=== PATIENT | male | born 1950 | race Caucasian/White ===

== ENCOUNTER 2023-08-23 19:39 | Inpatient (IN) ==
[2023-08-23] MEDS ORDERED: [UNRECOGNIZED DRUG - OTHER] IM ONE (21:39)
[2023-08-23] MEDS ORDERED: ACETAMINOPHEN 325 MG TAB PO PRN (22:08)
[2023-08-23] MEDS ORDERED: ONDANSETRON INJ 2 MG/ML 2 ML VIAL IV PRN (22:08)
[2023-08-23] MEDS ORDERED: PIPERACILLIN/TAZOBACTAM 4.5 GM in DEXTROSE 5% MINI-B 100 ML IV ONE (22:30)
[2023-08-23] MEDS ORDERED: ALBUTEROL HFA 8 GM INHALER INH PRN (22:40)
[2023-08-23] MEDS ORDERED: oxyCODONE/ACETAMINOPHEN 10-325 TAB PO PRN (22:40)
--- NOTE | 2023-08-23 22:49 | History & Physical Report ---
Date of Service August 23, 2023 Assessment & Plan (1) Enteritis: Plan: Sepsis secondary to enteritis Patient presents from [facility] with complaints of nausea and vomiting diarrhea CT scan of the abdomen and pelvis showed evidence of enteritis or ileus Initial serum lactate was 3 however after some IV fluid it went down to 2 We will obtain stool cultures Empirically continue IV Zosyn. Patient already received 1 dose of vancomycin at lower given Repeat lactate (2) Ileus: Plan: CT also showed evidence of suspected ileus Currently patient he had a bowel movement in the morning, but has not passed gas since then On examination abdomen was tympanitic and mildly tender We will keep him n.p.o. IV normal saline 100 cc/h (3) Diabetes mellitus, type 2: Plan: Blood glucose under fair control At home on metformin and insulin glargine Continue glargine Add insulin sliding scale, hold metformin (4) CAD (coronary artery disease): Plan: History of CAD, currently patient was supposed to get a stent soon Continue metoprolol statin Plavix and aspirin Plan Monitor on telemetry Full code DVT prophylaxis SCDs Admission and Anticipated Discharge Date Admission Date: August 23, 2023 History of Present Illness Primary Care Provider: Verna Vallejo PA-C Is a 73-year-old male with a history of CAD, type 2 diabetes who was a transfer from [facility] department. According to the patient presented to [facility] on account of nausea and vomiting and diarrhea which have been going on for a few days. In location, CBC showed a WBC of 20,000, serum lactate of 3 and he was tachycardic heart rate in the 120s blood pressure was 130/80. A CT scan of the abdomen pelvis was done which showed evidence of a fluid-filled nondilated loops suspicious for enteritis or ileus. When I saw the patient here he said he has been feeling weak and also complained of diffuse chest pain nonradiating. However he denies shortness of breath Troponin and EKG been ordered and blood cultures already obtained location, will obtain a repeat here. Continue IV Zosyn which was started at [facility]. He already received a dose of Vanco in [facility] as well Allergies Allergy/AdvReac Type Severity Reaction Status Date / Time No Known Allergies Allergy Verified 08/13/23 13:12 Home Medications Medication Instructions Recorded Confirmed Type alogliptin 25 mg tablet 25 mg PO QAM 04/30/20 08/13/23 History lisinopril 10 mg tablet 10 mg PO QAM 04/30/20 08/13/23 History lovastatin 40 mg tablet 40 mg PO QAM 04/30/20 08/13/23 History metformin 500 mg tablet 500 mg PO BID 04/30/20 08/13/23 History metoprolol tartrate 25 mg tablet 12.5 mg PO BID 04/30/20 08/13/23 History omeprazole 20 mg capsule,delayed 20 mg PO QAM 04/30/20 08/13/23 History release ondansetron 4 mg disintegrating 4 mg PO Q8H PRN Nausea 04/30/20 08/13/23 History tablet polyethylene glycol 3350 17 17 gm PO DAILY PRN Constipation 04/30/20 08/13/23 History gram/dose oral powder tamsulosin 0.4 mg capsule 0.4 mg PO QAM 04/30/20 08/13/23 History albuterol sulfate 90 mcg/actuation 1 inh inhalation QID PRN sob 05/29/20 08/13/23 History aerosol inhaler (Ventolin HFA) insulin glargine 100 unit/mL 30 unit subcut QAM 05/29/20 08/13/23 History subcutaneous solution (Lantus U-100 Insulin) oxycodone-acetaminophen 10 mg-325 1 tab PO Q6H PRN Pain 05/29/20 08/13/23 History mg tablet peg 3350-electrolytes 236 240 ml PO Q10M #4,000 mL 05/30/20 08/13/23 Rx gram-22.74 gram-6.74 gram-5.86 gram solution (Golytely) aspirin 81 mg tablet,delayed 81 mg PO DAILY 08/13/23 08/13/23 History release clopidogrel 75 mg tablet 75 mg PO DAILY 08/13/23 08/13/23 History Past Med/Surg History Medical History Aortic aneurysm [facility] (08/16/23): Dilated aortic root (4.1 cm) and ascending aorta (4.3 cm) BPH (benign prostatic hyperplasia) Carotid artery stenosis Neck CTA 08/05/23: Extensive atherosclerotic disease resulting in 90% right coronal and carotid artery stenosis and 80% left common carotid artery stenosis. Chronic obstructive pulmonary disease Diabetes mellitus, type 2 Gastroparesis GERD (gastroesophageal reflux disease) Hyperlipidemia Hypertension Surgical History Hx of cholecystectomy Hx of colonoscopy Hx of esophagogastroduodenoscopy Hx of tonsillectomy Family History Mother Diabetes Sister Diabetes Social History Smoking Status: Former smoker Second Hand Exposure: No; Do You Dip or Chew Tobacco: No; Hx Alcohol Use: No Hx Substance Use: No Preferred Language: Belarusian Communication Ability: Effective Bankruptcy Assistant Required: No Beliefs That Will Affect Care: None Current Living Situation: Spouse Other Information That Helps Us Care for You: No Feels Safe at Home: Yes Safety Concerns: Feels Safe At This Time Assistive Devices: Cane, Glasses and Walker Review of Systems Review of Systems: All systems reviewed are negative, apart from the ones contained in the history. Physical Exam Physical Exam: The patient is awake, alert and oriented 3, well developed and well nourished, normocephalic and atraumatic, lying in bed and in no acute distress. HEENT--PERRL, EOMI, mucous membranes and oropharynx mildly dry Neck--supple. No JVD. No bruits. Thyroid normal, trachea midline, no adenopathy. Heart--normal S1 and S2. No murmurs, rubs or gallops. Lungs--clear bilaterally, no respiratory distress, no accessory muscle use. Abdomen--normal bowel sounds and soft. Mild epigastric and left sided abdominal pain Extremities--no cyanosis or clubbing. No edema. Dermatologic--normal skin turgor, normal color, no abnormal lymph nodes, no rash. Neurologic--cranial nerves II through XII grossly intact. Rheumatologic--normal range of motion. Psychiatric--normal affect. Results & Data Results & Data Vital Signs (Past 12 Hours) Vital Signs Temp Pulse Resp BP Pulse Ox O2 Del Method 08/23/23 21:31 98.2 F 121 H 18 126/76 95 Room Air PG Care Time/CCT Total # of Minutes Spent Total Time Spent with Patient: Total time spent is greater than 50% in coordination of care (as documented) at patient's floor/unit and/or counseling patient: Coding Level of Care Code 60693 INT INP/OBS CARE MIN Diagnoses Enteritis K52.9 Ileus K56.7 Diabetes mellitus, type 2 E11.9 CAD (coronary artery disease) I25.10
[2023-08-23] MEDS ORDERED: GLUCAGON FOR INJ 1 MG VIAL IM PRN (23:00)
[2023-08-23] MEDS ORDERED: GLUCOSE 40% GEL 15 GM TUBE PO PRN (23:00)
[2023-08-23] MEDS ORDERED: GLUCOSE 10 TAB/TUBE PO PRN (23:00)
[2023-08-23] MEDS ORDERED: DEXTROSE 50% 50 ML SYRINGE IV PRN (23:00)
[2023-08-23] MEDS ORDERED: CARBOHYDRATES FOR HYPOGLYCEMIA PO PRN (23:00)
[2023-08-23 23:51] LABS: BUN Creatinine Ratio 20.2 (10-20); Calcium 8.2 mg/dl (8.6-10.3); Creatinine Clr Calc Pharmacy 72.6 ml/min; Est GFR (African American) 97.6 ml/min; Est GFR (Non-African American) 84.2 ml/min; Potassium 4.6 mmol/L (3.5-5.1)
[2023-08-23 23:53] LABS: Hematocrit (blood only) 44.8 % (42.0-52.0); Hemoglobin 15.3 g/dl (14.0-18.0); Mean Corpuscular Hemoglobin 31.7 pg (25.0-34.0); Mean Corpuscular Hgb Conc 34.2 g/dL (32.0-36.0); Mean Corpuscular Volume 92.8 fL (80.0-100.0); Mean Platelet Volume 9.4 fL (9.4-12.4); Platelet Count 227 K/uL (130-400); RDW Coefficient of Variation 13.3 % (11.5-14.5); RDW Standard Deviation 45.1 fL (36.4-46.3); Red Blood Count 4.83 M/uL (4.70-6.10); White Blood Count 16.16 K/ul (4.8-10.8)
[2023-08-24 00:10] LABS: Troponin I High Sensitivity 1407.6 pg/ml (0-20)
[2023-08-24] MEDS ORDERED: Heparin IV Adult Wt-Based Standard WITH Bolus Protocol IV STA (00:30)
[2023-08-24] MEDS ORDERED: HEPARIN SOD (PORCINE) 1000 UNIT/ML IV ONE (01:00)
[2023-08-24] MEDS: HEPARIN SODIUM/DEXTROSE 25,000 UNITS/500 ML BAG IV SCH (01:13)
[2023-08-24 02:41] LABS: Partial Thromboplastin Ratio > 4.9
[2023-08-24 02:50] LABS: Partial Thromboplastin Time > 139.0 Seconds (21.0-31.0)
[2023-08-24] MEDS: SODIUM CHLORIDE 0.9% 1,000 ML IV SCH ×3 (03:52→19:09)
[2023-08-24 05:08] LABS: Basophils # (auto) 0.02 K/uL (0.00-0.20); Basophils % (auto) 0.2 %; Eosinophils # (auto) 0.04 K/uL (0.00-0.50); Eosinophils % (auto) 0.3 %; Hematocrit (blood only) 43.7 % (42.0-52.0); Hemoglobin 14.9 g/dl (14.0-18.0); Immature Granulocytes # (auto) 0.04 K/uL (0.01-0.20); Immature Granulocytes % (auto) 0.3 %; Lymphocytes # (auto) 2.29 K/uL (1.20-3.40); Lymphocytes % (auto) 18.2 %; Mean Corpuscular Hemoglobin 31.8 pg (25.0-34.0); Mean Corpuscular Hgb Conc 34.1 g/dL (32.0-36.0); Mean Corpuscular Volume 93.2 fL (80.0-100.0); Mean Platelet Volume 9.5 fL (9.4-12.4); Monocytes # (auto) 1.15 K/uL (0.11-0.59); Monocytes % (auto) 9.1 %; Neutrophils # (auto) 9.03 K/uL (1.40-6.50); Neutrophils % (auto) 71.9 %; Platelet Count 219 K/uL (130-400); RDW Coefficient of Variation 13.4 % (11.5-14.5); RDW Standard Deviation 45.2 fL (36.4-46.3); Red Blood Count 4.69 M/uL (4.70-6.10); White Blood Count 12.57 K/ul (4.8-10.8)
[2023-08-24 05:21] LABS: Calcium 8.3 mg/dl (8.6-10.3); Creatinine Clr Calc Pharmacy 79.8 ml/min; Est GFR (African American) 101.5 ml/min; Est GFR (Non-African American) 87.6 ml/min
[2023-08-24 05:36] LABS: Partial Thromboplastin Ratio 1.4
[2023-08-24] MEDS: INSULIN ASPART PER UNIT CHARGE SC SCH ×4 (07:30→20:09)
[2023-08-24] MEDS: PIPERACILLIN/TAZOBACTAM 4.5 GM in DEXTROSE 5% MINI-B 100 ML IV SCH ×2 (08:21→16:36)
[2023-08-24] MEDS: lisinopril 10 MG TAB PO SCH (08:22)
[2023-08-24] MEDS: CLOPIDOGREL BISULFATE 75 MG TAB PO SCH (08:22)
[2023-08-24] MEDS: PANTOprazole 40 MG TAB PO SCH (08:22)
[2023-08-24] MEDS: TAMSULOSIN HCL 0.4 MG CAP PO SCH (08:22)
[2023-08-24] MEDS: ASPIRIN 81 MG ECTAB PO SCH (08:23)
[2023-08-24] MEDS ORDERED: LOVASTATIN 20 MG TAB PO SCH (09:00)
[2023-08-24] MEDS ORDERED: METOPROLOL TARTRATE 25 MG TAB PO SCH (09:00)
--- NOTE | 2023-08-24 09:30 | XCELERA ---
[id number]
[2023-08-24] MEDS: LANTUS PER UNIT CHARGE SQ SCH (11:36)
[2023-08-24] MEDS ORDERED: LANTUS PER UNIT CHARGE SQ ONE (11:37)
--- NOTE | 2023-08-24 11:40 | Cardiology Consultation ---
Date of Consultation August 24, 2023 Assessment & Plan (1) Non-ST elevation (NSTEMI) myocardial infarction: (2) Hypertension: (3) Hyperlipidemia: (4) CAD (coronary artery disease): Plan ASSESSMENT/PLAN: 1. NSTEMI: Concern for severe underlying CAD given high-sensitivity troponin over 12,000. No current angina presentation not consistent with acute coronary syndrome. Continue antiplatelet therapies. Continue heparin drip for now. Cardiac catheterization recommended. Risk and benefits were discussed with him in detail. He was made aware that CT surgery is not available at this facility. He was agreeable. Family was notified of recommendations via telephone ([id number], Amelia). Continue beta-minerva and statin therapy. 2. Hypertension: Blood pressure well controlled. Continue FRANCIE inhibitor and beta-minerva. 3. Dyslipidemia: Goal LDL <70. Recommend high intensity statin therapy in place of lovastatin. He denies any allergies. 4. Carotid artery stenosis: Severe bilateral stenosis. Follows with Dr. Cho. 5. Disposition: Cardiology will continue to follow. Patient care communicated with primary hospitalist, Dr. Manley. Highly complex medical issues. Addendum: Cardiac catheterization completed and demonstrated: Coronary angiography: 1. Left main: Ostial/proximal 30 to 40%. Ventricularized waveform. 2. Left anterior descending: Ostial/proximal LAD 40 to 50%. Early mid LAD 30%. Mild diffuse CAD throughout the mid LAD. Distally, the LAD is a small caliber vessel. D1 and D2 without significant CAD. 3. Circumflex: Mid circumflex 50 to 60%. Diffuse mild CAD throughout the OM 2. Small OM1 proximal mild CAD. 4. Right coronary artery: RCA is large and dominant. Ostial/proximal RCA 99%. Proximal RCA 90% hazy appearance. MARIMAR II flow. Proximal PDA 70%. Proximal PL 20 to 30%. Left to right collaterals. Left heart catheterization: 1. Left ventriculography was not performed. 2. No aortic stenosis. Peak to peak gradient across the aortic valve was 0. 3. Moderately elevated LVEDP; 20 mmHg. Interventional Summary: 1. Multivessel coronary artery disease 40% diffuse left main CAD (severe by IVUS CSA 5.0 mm, borderline by FFR 0.83). 99% heavily calcified proximal RCA with [id number] collaterals 60% mid small circumflex Recommendations: Consideration of CABG versus high risk PCI when GI/infectious issues resolved Discussed findings with patient and with family via telephone and and with leroy mckeon at the bedside. Recommend continuation of medical therapy while primary hospitalist service completes treatment for his presenting GI complaints/enteritis. Continue antiplatelet therapy. Adjust medical therapy as tolerated in regards to his coronary disease. Recommend outpatient CT surgery evaluation unless he should develop unstable symptoms, which could prompt hospital transfer. Family questions and concerns were addressed. Patient himself remains free from angina. For concern that there is possible thrombus beyond calcified RCA lesion, can continue heparin drip for 48 hours from presentation. Hospitalist updated with cath findings/recommendations. Discussed with nursing staff as well. Patient History of Present Illness Reason for Consultation: elevated trop Requesting Physician: Burt Choe Attending Physician: Kristopher Manley History of Present Illness Mr. Chu is a pleasant 73-year-old gentleman with a history significant for type 2 diabetes, severe carotid artery stenosis bilaterally, gastroparesis, dilated ascending aorta, COPD, hypertension, and dyslipidemia. He was hospitalized here on 08/23/[address] transferred from [facility] to enteritis and elevated troponins. His initial high-sensitivity troponin was 1407. He states that he was exposed to agent orange and has had issues with nausea and vomiting which he attributes to agent orange. He has episodes every few months with his last significant episode 6 months ago. He has gastroparesis. Leading to his presentation and location, he felt tired with decreased energy and had epigastric discomfort. He had nausea and vomiting for approximately 4 hours. At some point while at [facility], he described a substernal chest tightness. He was short of breath as well. He was unable to give specific details about the chest discomfort but upon further questioning, it occurred after/during vomiting. He has chronic but stable dyspnea on exertion which he attributes to COPD. He walks his dog often, up to 25 to 35 minutes but has to stop at times to catch his breath. He denies exertional chest discomfort. He denies syncope, near syncope, palpitations, edema, melena, hematochezia, hematuria, hematemesis, or other bleeding. He believes he had a low-grade fever while at [facility]. He has been afebrile here and was placed on Zosyn by the hospitalist service. He was also placed on heparin drip given elevated troponin levels. Today he feels quite well and denies any further epigastric or chest discomfort. He denies shortness of breath laying in bed. His appetite is improving as well and he is asking for food. He apparently had a CT of his abdomen and pelvis before transfer here which reportedly demonstrated fluid-filled nondilated loops suspicious for enteritis or ileus. He has had the following studies/procedures: 1. Neck CTA 08/05/2023: Right common carotid 90%. Left common carotid 80%. 2. Echo 08/16/2023 [place] [facility]: Normal LV size, wall motion, systolic function. EF 60 to 65%. Mildly dilated RV with normal systolic function. Aortic root 4.1 cm. Ascending aorta 4.3 cm. Mild MR. RVSP 23. 3. Echo 08/24/2023: Normal LV size, wall motion, systolic function. EF 55 to 60%. Moderate LVH. Limited 2D study. Review of systems: As above. Review of systems otherwise negative/unremarkable. Family history: No known premature CAD. Social history: He quit smoking 25 or more years ago but smoked up to 3 packs/day. He denies alcohol or drug abuse. He lives with his . He has 6 children. 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 He was alone in his hospital room. Allergies Allergy/AdvReac Type Severity Reaction Status Date / Time No Known Allergies Allergy Verified 08/13/23 13:12 Home Medications Medication Instructions Recorded Confirmed Type lisinopril 10 mg tablet 10 mg PO QAM 04/30/20 08/24/23 History lovastatin 40 mg tablet 40 mg PO QAM 04/30/20 08/24/23 History metoprolol tartrate 25 mg tablet 12.5 mg PO BID 04/30/20 08/24/23 History omeprazole 20 mg capsule,delayed 20 mg PO QAM 04/30/20 08/24/23 History release polyethylene glycol 3350 17 17 gm PO DAILY PRN Constipation 04/30/20 08/24/23 History gram/dose oral powder tamsulosin 0.4 mg capsule 0.4 mg PO QAM 04/30/20 08/24/23 History albuterol sulfate 90 mcg/actuation 1 inh inhalation QID PRN sob 05/29/20 08/24/23 History aerosol inhaler (Ventolin HFA) insulin glargine 100 unit/mL 30 unit subcut QAM 05/29/20 08/24/23 History subcutaneous solution (Lantus U-100 Insulin) aspirin 81 mg tablet,delayed 81 mg PO DAILY 08/13/23 08/24/23 History release clopidogrel 75 mg tablet 75 mg PO DAILY 08/13/23 08/24/23 History baclofen 10 mg tablet 10 mg PO TID PRN Muscle Spasm 08/24/23 08/24/23 History cetirizine 10 mg tablet (Zyrtec) 10 mg PO DAILY PRN Allergy Symptoms 08/24/23 08/24/23 History cyanocobalamin (vitamin B-12) 1,000 mcg PO DAILY 08/24/23 08/24/23 History 1,000 mcg tablet (Vitamin B-12) docusate sodium 100 mg capsule 100 mg PO BID PRN Constipation 08/24/23 08/24/23 History empagliflozin 25 mg tablet 25 mg PO QAM 08/24/23 08/24/23 History (Jardiance) fluticasone propionate 50 1 spray intranasal HS 08/24/23 08/24/23 History mcg/actuation nasal spray,suspension magnesium oxide 420 mg tablet 420 mg PO DAILY 08/24/23 08/24/23 History meloxicam 15 mg tablet 15 mg PO DAILY PRN Pain 08/24/23 08/24/23 History metformin 500 mg tablet,extended 1,000 mg PO BID 08/24/23 08/24/23 History release 24hr mirtazapine 30 mg tablet 15 mg PO DAILY 08/24/23 08/24/23 History sennosides 8.6 mg tablet (senna) 8.6 mg PO BID PRN Constipation 08/24/23 08/24/23 History Patient History Medical History (Updated 08/24/23 @ 15:57 by Bertrand Amaral MD) Aortic aneurysm [facility] monitoring Echo (08/16/23): Dilated aortic root (4.1 cm) and ascending aorta (4.3 cm) BPH (benign prostatic hyperplasia) CAD (coronary artery disease) Carotid artery stenosis Neck CTA 08/05/23: Extensive atherosclerotic disease resulting in 90% right coronal and carotid artery stenosis and 80% left common carotid artery stenosis. Chronic obstructive pulmonary disease Diabetes mellitus, type 2 Gastroparesis GERD (gastroesophageal reflux disease) Hyperlipidemia Hypertension Surgical History Hx of cholecystectomy Hx of colonoscopy Hx of esophagogastroduodenoscopy Hx of tonsillectomy Family History Mother Diabetes Sister Diabetes Social History Smoking Status: Former smoker Second Hand Exposure: No; Do You Dip or Chew Tobacco: No; Hx Alcohol Use: No Hx Substance Use: No Preferred Language: Irish Communication Ability: Effective Ingot Stripper Required: No Beliefs That Will Affect Care: None Current Living Situation: Spouse Other Information That Helps Us Care for You: No Feels Safe at Home: Yes Safety Concerns: Feels Safe At This Time Assistive Devices: Cane, Glasses and Walker Physical Exam Physical Exam: Gen.: No acute distress. Alert and oriented. HEENT: Anicteric sclera. Neck: No JVD. Normal carotid upstrokes bilaterally. Cardiac: No ventricular heave. Regular. Normal S1-S2. No murmurs, rubs, or gallops. Pulmonary: Clear to auscultation bilaterally without wheezes, rales, or rhonchi. Abdomen: Soft, nontender, nondistended, with normoactive bowel sounds. No bruits noted. Extremities: 2+ radial pulses bilaterally. 2+ posterior tibialis pulses bilaterally. No edema or cyanosis. Psychiatric: Affect appears appropriate. Chest: Nontender to palpation. Results & Data Vital Signs (Past 12 Hours) Vital Signs Temp Pulse Resp BP Pulse Ox O2 Del Method 08/24/23 11:25 36.5 C 74 19 96/55 L 95 Room Air 08/24/23 07:41 37.2 C 86 18 113/60 95 Room Air 08/24/23 02:59 36.7 C 108 H 18 116/65 94 Room Air Laboratory Results Laboratory Results - last 24 hr 08/23/23 08/23/23 08/23/23 22:43 23:22 23:22 WBC 16.16 H RBC 4.83 Hgb 15.3 Hct 44.8 MCV 92.8 MCH 31.7 MCHC 34.2 RDW Std Deviation 45.1 RDW Coeff of Cm 13.3 Plt Count 227 MPV 9.4 Immature Gran % (Auto) Neut % (Auto) Lymph % (Auto) Carson % (Auto) Eos % (Auto) Baso % (Auto) Neut # (Auto) Lymph # (Auto) Carson # (Auto) Eos # (Auto) Baso # (Auto) Immature Gran # (Auto) APTT PTT Ratio Sodium 141 Potassium 4.6 Chloride 105 Carbon Dioxide 29 Anion Gap 7 BUN 18 Creatinine 0.89 Est Cr Clr Drug Dosing 72.6 Est GFR ( Amer) 97.6 Est GFR (Non-Af Amer) 84.2 BUN/Creatinine Ratio 20.2 H Glucose 114 H POC Glucose Lactate 1.6 Calcium 8.2 L Troponin I High Sens 1407.6 H* 08/24/23 08/24/23 08/24/23 01:35 04:06 04:06 WBC 12.57 H RBC 4.69 L Hgb 14.9 Hct 43.7 MCV 93.2 MCH 31.8 MCHC 34.1 RDW Std Deviation 45.2 RDW Coeff of Cm 13.4 Plt Count 219 MPV 9.5 Immature Gran % (Auto) 0.3 Neut % (Auto) 71.9 Lymph % (Auto) 18.2 Carson % (Auto) 9.1 Eos % (Auto) 0.3 Baso % (Auto) 0.2 Neut # (Auto) 9.03 H Lymph # (Auto) 2.29 Carson # (Auto) 1.15 H Eos # (Auto) 0.04 Baso # (Auto) 0.02 Immature Gran # (Auto) 0.04 APTT > 139.0 H* PTT Ratio > 4.9 Sodium 139 Potassium 4.0 Chloride 105 Carbon Dioxide 27 Anion Gap 7 BUN 17 Creatinine 0.81 Est Cr Clr Drug Dosing 79.8 Est GFR ( Amer) 101.5 Est GFR (Non-Af Amer) 87.6 BUN/Creatinine Ratio 21.0 H Glucose 116 H POC Glucose Lactate Calcium 8.3 L Troponin I High Sens 08/24/23 08/24/23 08/24/23 04:06 07:05 09:59 WBC RBC Hgb Hct MCV MCH MCHC RDW Std Deviation RDW Coeff of Cm Plt Count MPV Immature Gran % (Auto) Neut % (Auto) Lymph % (Auto) Carson % (Auto) Eos % (Auto) Baso % (Auto) Neut # (Auto) Lymph # (Auto) Carson # (Auto) Eos # (Auto) Baso # (Auto) Immature Gran # (Auto) APTT 40.0 H PTT Ratio 1.4 Sodium Potassium Chloride Carbon Dioxide Anion Gap BUN Creatinine Est Cr Clr Drug Dosing Est GFR ( Amer) Est GFR (Non-Af Amer) BUN/Creatinine Ratio Glucose POC Glucose 98 Lactate Calcium Troponin I High Sens 51660.4 H* D 08/24/23 11:06 WBC RBC Hgb Hct MCV MCH MCHC RDW Std Deviation RDW Coeff of Cm Plt Count MPV Immature Gran % (Auto) Neut % (Auto) Lymph % (Auto) Carson % (Auto) Eos % (Auto) Baso % (Auto) Neut # (Auto) Lymph # (Auto) Carson # (Auto) Eos # (Auto) Baso # (Auto) Immature Gran # (Auto) APTT PTT Ratio Sodium Potassium Chloride Carbon Dioxide Anion Gap BUN Creatinine Est Cr Clr Drug Dosing Est GFR ( Amer) Est GFR (Non-Af Amer) BUN/Creatinine Ratio Glucose POC Glucose 109 H Lactate Calcium Troponin I High Sens Diagnostic Findings History and physical report reviewed. Neck CTA and outside echo reports reviewed as noted above in HPI. Chest x-ray 08/21/2023: No acute cardiopulmonary findings per radiology. Telemetry personally reviewed: Sinus rhythm. No arrhythmia. Personally reviewed 08/23/2020: Sinus tachycardia 115 bpm. RBBB. Inferior infarct. ECG 08/21/2023: Sinus rhythm 77 bpm. RBBB. Inferior infarct. Labs reviewed and notable for elevating [place] [address], normal renal function, leukocytosis, normal hemoglobin. Medications Administered Current Inpatient Medications Acetaminophen (Acetaminophen 325 Mg Tab) 650 mg PO Q4H PRN PRN Reason: Pain or Fever Stop: 09/22/23 22:07 Albuterol (Albuterol Hfa 8 Gm Inhaler) 1 puffs INH QID PRN PRN Reason: sob Stop: 09/22/23 22:39 Aspirin (Aspirin 81 Mg Ectab) 81 mg PO DAILY [facility] Stop: 09/23/23 08:59 Last Admin: 08/24/23 08:23 Dose: 81 mg Clopidogrel Bisulfate (Clopidogrel Bisulfate 75 Mg Tab) 75 mg PO DAILY [facility] Stop: 09/23/23 08:59 Last Admin: 08/24/23 08:22 Dose: 75 mg Dextrose (Dextrose 50% 50 Ml Syringe) 25 - 50 ml IV UD PRN; Protocol PRN Reason: Hypoglycemia Protocol Stop: 09/22/23 22:59 Glucagon (Glucagon For Inj 1 Mg Vial) 1 mg IM UD PRN; Protocol PRN Reason: Hypoglycemia Protocol Stop: 09/22/23 22:59 Glucose (Glucose 40% Gel 15 Gm Tube) 15 - 30 gm PO UD PRN; Protocol PRN Reason: Hypoglycemia Protocol Stop: 09/22/23 22:59 Glucose (Glucose 10 Tab/Tube) 4 - 8 tab PO UD PRN; Protocol PRN Reason: Hypoglycemia Protocol Stop: 09/22/23 22:59 Sodium Chloride (Nss) 1,000 mls @ 100 mls/hr IV .Q10H [facility] Stop: 09/22/23 22:14 Last Admin: 08/24/23 03:52 Dose: 100 mls/hr Piperacillin Sod/Tazobactam (Sod 4.5 gm/ Dextrose) 100 mls @ 25 mls/hr IV Q8H [facility]; Protocol Stop: 09/03/23 03:59 Last Admin: 08/24/23 08:21 Dose: 25 mls/hr Heparin Sodium/Dextrose (Heparin Sodium/Dextrose) 25,000 units in 500 mls @ 25 mls/hr IV .Q20H [facility]; Protocol Stop: 09/23/23 00:44 Last Titration: 08/24/23 06:59 Dose: 1,250 units/hr, 25 mls/hr Insulin Aspart (Insulin Aspart Per Unit Charge) 0 units SC ACHS [facility] Stop: 09/23/23 07:29 Last Admin: 08/24/23 11:36 Dose: Not Given Insulin Glargine (Lantus Per Unit Charge) 30 units SQ [facility] Stop: 09/23/23 08:59 Last Admin: 08/24/23 11:36 Dose: Not Given Lisinopril (Lisinopril 10 Mg Tab) 10 mg PO [facility] Stop: 09/23/23 08:59 Last Admin: 08/24/23 08:22 Dose: 10 mg Lovastatin (Lovastatin 20 Mg Tab) 40 [facility] Stop: 09/23/23 08:59 Last Admin: 08/24/23 08:22 Dose: 40 mg Metoprolol Tartrate (Metoprolol Tartrate 25 Mg Tab) 12.5 mg PO BID [facility] Stop: 09/23/23 08:59 Last Admin: 08/24/23 08:22 Dose: 12.5 mg Miscellaneous (Carbohydrates For Hypoglycemia ) 15 - 30 gm PO UD PRN PRN Reason: Hypoglycemia Treatment Stop: 09/22/23 22:59 Ondansetron HCl (Ondansetron Inj 2 Mg/Ml 2 Ml Vial) 4 mg IV Q6H PRN PRN Reason: Nausea Stop: 09/22/23 22:07 Oxycodone/Acetaminophen (Oxycodone/Acetaminophen 10-325 Tab) 1 tab PO Q6H PRN PRN Reason: Pain Stop: 09/06/23 22:39 Pantoprazole Sodium (Pantoprazole 40 Mg Tab) 40 mg PO QAM [facility] Stop: 09/23/23 08:59 Last Admin: 08/24/23 08:22 Dose: 40 mg Tamsulosin HCl (Tamsulosin Hcl 0.4 Mg Cap) 0.4 mg PO QAM [facility] Stop: 09/23/23 08:59 Last Admin: 08/24/23 08:22 Dose: 0.4 mg PG Care Time/CCT Total # of Minutes Spent Total Time Spent with Patient: Total time spent is greater than 50% in coordination of care (as documented) at patient's floor/unit and/or counseling patient: Coding Level of Care Code 22815 INT INP/OBS CARE 3/75MIN Diagnoses Non-ST elevation (NSTEMI) myocardial infarction I21.4 Hypertension I10 Hyperlipidemia E78.5 CAD (coronary artery disease) I25.10
--- NOTE | 2023-08-24 11:55 | Pre Anesthesia Assessment ---
Date of Service August 24, 2023 Pre Sedation Assessment Vital Signs Temp Pulse Pulse Resp BP BP Pulse Ox 08/24/23 11:25 36.5 C 74 19 96/55 L 95 08/24/23 07:41 37.2 C 86 18 113/60 95 08/24/23 02:59 36.7 C 108 H 18 116/65 94 08/23/23 23:00 36.9 C 114 H 19 121/78 93 08/23/23 22:40 118 H 08/23/23 22:08 117 H 08/23/23 21:31 36.8 C 121 H 18 126/76 95 O2 Del Method 08/24/23 11:25 Room Air 08/24/23 07:41 Room Air 08/24/23 02:59 Room Air 08/23/23 23:00 Room Air 08/23/23 22:40 08/23/23 22:08 08/23/23 21:31 Room Air Cardiovascular RRR, no murmur, no edema Respiratory normal respiratory effort, lungs clear to auscultation Pre-Sedation Airway Assessment Smoking Status: Former smoker Hx Sleep Apnea: No Short, Thick Neck: No Thyromental Distance: > or= 3.5 Finger Breadths Oral Cavity: + WNL Mallampati Class: III ASA: ASA3 NPO Status Date of Last Intake of Fluids: 08/24/23 Time of Last Intake of Fluids: 07:00 Last Oral Intake of Fluids Comment: sips with meds Date of Last Intake of Solid Food: 08/23/23 Time of Last Intake of Solid Foods: 08:00 Procedure Planning Contraindications for Sedation: none Current Medications Reviewed: Yes Notes The planned sedation has been discussed with the patient. Informed Consent was obtained. I have identified the patient, determined the appropriateness of sedation and have assessed the patient immediately prior to the procedure. All medicine(s) and interventions are by my order.
[2023-08-24] MEDS ORDERED: HEPARIN (PORCINE) 1000 UNIT/ML 10 ML (CATH LAB USE ONLY) ONE (11:59)
[2023-08-24] MEDS ORDERED: fentaNYL citrate PF 100 MCG/2 ML VIAL ONE (11:59)
[2023-08-24] MEDS ORDERED: niCARdipine HCL INJ 2.5 MG/ML 10 ML AMP ONE (11:59)
[2023-08-24] MEDS ORDERED: MIDAZOLAM HCL 1 MG/ML 2ML VIAL ONE (11:59)
[2023-08-24] MEDS ORDERED: NITROGLYCERIN/D5W 100MCG/ML 20ML SYR ONE (12:00)
--- NOTE | 2023-08-24 12:54 | Cardiac Catheterization ---
[facility] Data: Incident Response Coordinator Cardiac Status Clinical evaluation leading to the procedure CAD Presenation: Non STEMI Anginal Classification: CCS IV Heart Failure: No Cardiogenic Shock within 24 Hours: No Cardiac Arrest within 24 Hours: No Imaging Studies Past 6 Months: Yes Stress Studies Past 6 Months: No Coronary Anatomy Dominant: Right Diagnostic Physicians Name: Bertrand Amaral MD Closure Device Percutaneous Entry Location: Radial Closure Device: Radial Band Recommendations: Management Recommendatons Cardiac Cath Procedure Full Procedure Date August 24, 2023 Pre-Procedure Diagnosis Pre-Procedure Diagnosis: Non STEMI AUC Score AUC Score: 7 Post-Procedure Diagnosis Post-Procedure Diagnosis: Severe CAD and Elevated Intracardiac Pressures Procedure(s) Performed Procedure(s) Performed: Coronary Angiography and Left Heart Cath Building Services Engineer Bertrand Amaral MD Facetor(s) Shon Estimated Blood Loss Estimated Blood Loss: < 20 ml Medication(s) Medication(s): Fentanyl, Heparin, Lidocaine 1%, Nicardipine and Versed Summary of Findings Procedures: 1. Coronary angiography 2. Left heart catheterization 3. Moderate sedation Indication: Mr. Chu is a pleasant 73-year-old gentleman with a history significant for type 2 diabetes, hypertension, dyslipidemia, bilateral carotid artery stenosis who was admitted on 08/23/2023 with NSTEMI in the setting of nausea/vomiting/enteritis. Coronary angiography: 1. Left main: Ostial/proximal 30 to 40%. Ventricularized waveform. 2. Left anterior descending: Ostial/proximal LAD 40 to 50%. Early mid LAD 30%. Mild diffuse CAD throughout the mid LAD. Distally, the LAD is a small caliber vessel. D1 and D2 without significant CAD. 3. Circumflex: Mid circumflex 50 to 60%. Diffuse mild CAD throughout the OM 2. Small OM1 proximal mild CAD. 4. Right coronary artery: RCA is large and dominant. Ostial/proximal RCA 99%. Proximal RCA 90% hazy appearance. MARIMAR II flow. Proximal PDA 70%. Proximal PL 20 to 30%. Left to right collaterals. Left heart catheterization: 1. Left ventriculography was not performed. 2. No aortic stenosis. Peak to peak gradient across the aortic valve was 0. 3. Moderately elevated LVEDP; 20 mmHg. Moderate sedation: 1. Sedation start time: 10 PM 2. Sedation end time: 12:49 PM Procedural notes: 1. Diagnostic coronary angiography was performed via the right radial artery. Calcifications noted within the right subclavian artery. Initially, wire did not easily pass into the aorta, but J-tip wire was able to advance into the aorta. 2. Mild hypotension noted following nicardipine administration, which improved initially with normal saline. 3. Calcifications noted within the LAD, circumflex, RCA, and aorta. Impression: 1. Severe ostial/proximal RCA CAD with MARIMAR II flow but also [id number]-[id number] collaterals. Severe proximal PDA CAD. 2. Ventricularized arterial waveform when engaged with the left main. Ostial/proximal left main 30-40% on visual inspection. 3. Otherwise mild and moderate nonobstructive CAD. Plan: 1. Dr. Parikh of interventional cardiology was asked to further evaluate the left main with IVUS and to consider treatment options regarding RCA, depending on left main findings. 2. Risk factor modification. Hemodynamics Rest Ao:: 87/39 Final Ao: 108/50 LV: 110/9/20 Recommendations Recommendations: Management Recommendatons Specimens Specimens: None Radiation Exposure (mGy) 915 mGy. Fluoro time 4.2 min. Contrast (mls) 55 ml Procedural Complication(s) None Disposition remains in laboratory animal caretaker for interventional cardiology I attest to the content of the Intraoperative Record and any orders documented therein. Any exceptions are noted below. [facility] Card Cath Procedure Codes Cardiac Catheterization Procedure 1: Cardiovascular Cath Procedures: 30628 Coronaries and LHC (+/-LV) Moderate Sedation Procedure 1: Sedation/Anesthesia: 42549 Mod Sedation by the same physician;Init15 Min Child Age 5 & Up Procedure 2: Sedation/Anesthesia: 42370 Mod Sedation by the same physician; Ea Ad [id number] Minutes Procedure 3: Sedation/Anesthesia: 63883 Mod Sedation by the same physician; Ea [id number] Minutes PG Care Time/CCT Total # of Minutes Spent Total Time Spent with Patient: Total time spent is greater than 50% in coordination of care (as documented) at patient's floor/unit and/or counseling patient:
[2023-08-24] MEDS ORDERED: ADENOSINE IV SOLN 3 MG/ML 20 ML VIAL IV ONE (13:11)
--- NOTE | 2023-08-24 13:42 | Post Anesthesia Assessment ---
Date of Service August 24, 2023 Post Sedation Assessment Vital Signs Temp Pulse Pulse Resp BP BP Pulse Ox 08/24/23 11:25 36.5 C 74 19 96/55 L 95 08/24/23 07:41 37.2 C 86 18 113/60 95 08/24/23 02:59 36.7 C 108 H 18 116/65 94 08/23/23 23:00 36.9 C 114 H 19 121/78 93 08/23/23 22:40 118 H 08/23/23 22:08 117 H 08/23/23 21:31 36.8 C 121 H 18 126/76 95 O2 Del Method 08/24/23 11:25 Room Air 08/24/23 07:41 Room Air 08/24/23 02:59 Room Air 08/23/23 23:00 Room Air 08/23/23 22:40 08/23/23 22:08 08/23/23 21:31 Room Air Recovery Score Activity: Moves 4 extremities Respiration: Deep Breath/Cough Circulation: +/-20% PreAnes Value Consciousness: Fully Awake Oxygen Saturation: > 92% On Room Air Discharge Sedation Level of Care: Fast Track Phase II Post Sedation Plan On clinical assessment, the patient appears to have tolerated the sedation without complications. Patient is recovering as anticipated. Patient will continue to be monitored by nursing and may be discharged when sedation discharge criteria are met per below protocol. Upon Completions of procedure up to 15 minutes continue every 5 minute vital signs and the P.A.R. score; then discharge to a Phase I or Fast Track to Phase II per the following guidelines: * Discharge Patient to appropriate Phase II area if PAR is 8 or greater or return to pre- procedure baseline. The post - procedure orders will be as directed. * If PAR score is less than 8 or not return to pre-procedure baseline then patient will follow Phase I monitoring till PAR is reached for Phase II. The Phase I may be done in procedure room or may call to secure a Phase I area. * If naloxone or flumazenil are used for reversal, hold in Phase I for continued monitoring from when last reversal dose was given for a minimum of 60 minutes or longer pending the nurse and/or physician discretion of patient condition before discharge to Phase II. Please call the Sedation Physician to re-evaluate and complete post-note for discharge to Phase II area. Do NOT discharge from procedure sedation or Phase 1 until post- sedation evaluation note is complete by procedure /sedation MD Sedation Discharge Instructions to be given to the patient at discharge to home.
--- NOTE | 2023-08-24 13:51 | Cardiac Catheterization ---
[facility] Data: Cnc Machine Operator Cardiac Status Clinical evaluation leading to the procedure CAD Presenation: Non STEMI Diagnostic Physicians Name: Julio Parikh MD Closure Device Recommendations: Medical Therapy and/or Counseling, PCI without planned CABG and CABG Cardiac Cath Procedure Full Procedure Date August 24, 2023 Pre-Procedure Diagnosis Pre-Procedure Diagnosis: Non STEMI AUC Score AUC Score: 7 Post-Procedure Diagnosis Post-Procedure Diagnosis: Severe CAD Procedure(s) Performed Procedure(s) Performed: Coronary Angiography, IVUS and Fractional Flow Lena Rating Specialist Julio Parikh MD Metallurgy Teacher(s) Shon Estimated Blood Loss Estimated Blood Loss: < 20 ml Medication(s) Medication(s): Adenosine, Fentanyl, Heparin and Versed Summary of Findings FFR/IVUS of left LMCA For full details of patient's coronary angiography please see cath report dictated by Dr. Amaral. Briefly, patient found to have multivessel CAD with 99% proximal heavily calcified RCA with [id number]-roptu collaterals, 60% mid circumflex and moderate left main disease with catheter waveform dampening with engagement. Decision to further assess LMCA to inform revascularization strategy. Procedure: -Left main cannulated with JL 3.5 guide -BMW wire placed into mid LAD Francois IVUS catheter placed to proximal LAD Pullback revealed diffuse LMCA calcified disease involving mid/distal segments. CSA 5.0 mm. IVUS catheter removed and ACIST Catheter placed across stenosis -Pd/Pa 0.9 -FFR 0.83 -Coronary angiography revealed no apparent complications post wire/catheter removal Summary: 1. Multivessel coronary artery disease 40% diffuse left main CAD (severe by IVUS CSA 5.0 mm, borderline by FFR 0.83). 99% heavily calcified proximal RCA with [id number]-[id number] collaterals 60% mid small circumflex Recommendations: Consideration of CABG versus high risk PCI when GI/infectious issues resolved Hemodynamics Rest Ao:: 97/51/71 Final Ao: 119/52/83 LV: 109/18 Recommendations Recommendations: Medical Therapy and/or Counseling, PCI without planned CABG and CABG Specimens Specimens: None Radiation Exposure (mGy) 153 Contrast (mls) 110 Anesthesia Moderate 3928-6626 Procedural Complication(s) None Disposition PCU I attest to the content of the Intraoperative Record and any orders documented therein. Any exceptions are noted below. [employer] Card Cath Procedure Codes Cardiac Catheterization Procedure 1: Cardiovascular Cath Procedures: 27957 (Doppler) Pressure Wire Therapeutic Services & Ancillary Procedure 1: Cardiovascular Tx and Anc Procedures: 13737 IV Ultrasound (Coronary or Graft) Moderate Sedation Procedure 1: Sedation/Anesthesia: 74083 Mod Sedation by the same physician; Ea [id number] Minutes PG Care Time/CCT Total # of Minutes Spent Total Time Spent with Patient: Total time spent is greater than 50% in coordination of care (as documented) at patient's floor/unit and/or counseling patient:
--- NOTE | 2023-08-24 13:52 | Post Anesthesia Assessment ---
Date of Service August 24, 2023 Post Sedation Assessment Vital Signs Temp Pulse Pulse Resp BP BP Pulse Ox 08/24/23 13:35 79 20 128/58 L 94 08/24/23 11:25 97.7 F 74 19 96/55 L 95 08/24/23 07:41 99.0 F 86 18 113/60 95 08/24/23 02:59 98.1 F 108 H 18 116/65 94 08/23/23 23:00 98.4 F 114 H 19 121/78 93 08/23/23 22:40 118 H 08/23/23 22:08 117 H 08/23/23 21:31 98.2 F 121 H 18 126/76 95 O2 Del Method 08/24/23 13:35 Room Air 08/24/23 11:25 Room Air 08/24/23 07:41 Room Air 08/24/23 02:59 Room Air 08/23/23 23:00 Room Air 08/23/23 22:40 08/23/23 22:08 08/23/23 21:31 Room Air Recovery Score Activity: Moves 4 extremities Respiration: Deep Breath/Cough Circulation: +/-20% PreAnes Value Consciousness: Fully Awake Oxygen Saturation: > 92% On Room Air Post Anesthesia Score: 10 Discharge Sedation Level of Care: Fast Track Phase II Post Sedation Plan On clinical assessment, the patient appears to have tolerated the sedation without complications. Patient is recovering as anticipated. Patient will continue to be monitored by nursing and may be discharged when sedation discharge criteria are met per below protocol. Upon Completions of procedure up to 15 minutes continue every 5 minute vital signs and the P.A.R. score; then discharge to a Phase I or Fast Track to Phase I I per the following guidelines: * Discharge Patient to appropriate Phase II area if PAR is 8 or greater or return to pre- procedure baseline. The post - procedure orders will be as directed. * If PAR score is less than 8 or not return to pre-procedure baseline then patient will follow Phase I monitoring till PAR is reached for Phase II. The Phase I may be done in procedure room or may call to secure a Phase I area. * If naloxone or flumazenil are used for reversal, hold in Phase I for continued monitoring from when last reversal dose was given for a minimum of 60 minutes or longer pending the nurse and/or physician discretion of patient condition before discharge to Phase II. Please call the Sedation Physician to re-evaluate and complete post-note for discharge to Phase II area. Do NOT discharge from procedure sedation or Phase 1 until post- sedation evaluation note is complete by procedure /sedation MD Sedation Discharge Instructions to be given to the patient at discharge to home.
[2023-08-24] MEDS ORDERED: LIDOCAINE 1% LOCAL 20 ML VIAL ONE (15:44)
[2023-08-24] MEDS ORDERED: Nursing to Pharmacy Communication SCH (16:30)
[2023-08-24 16:40] LABS: Partial Thromboplastin Ratio 1.9
[2023-08-24 16:42] LABS: Partial Thromboplastin Time 54.4 Seconds (21.0-31.0)
[2023-08-24 16:59] LABS: Troponin I High Sensitivity 6242.1 pg/ml (0-20)
[2023-08-24] MEDS: METOPROLOL TARTRATE 25 MG TAB PO SCH (20:06)
--- NOTE | 2023-08-24 23:01 | Hospitalist Progress Note ---
Date of Service August 24, 2023 Assessment & Plan (1) Enteritis: Plan: Sepsis secondary to enteritis Patient presents from [facility] with complaints of nausea and vomiting diarrhea CT scan of the abdomen and pelvis showed evidence of enteritis or ileus Initial serum lactate was 3 however after some IV fluid it went down to 2 Symptoms appear to have resolved on 08/24. will continue to monitor. (2) Ileus: Plan: CT also showed evidence of suspected ileus Currently patient he had a bowel movement in the morning, but has not passed gas since then On examination abdomen was tympanitic and mildly tender Diet resumed. (3) Diabetes mellitus, type 2: Plan: Blood glucose under fair control At home on metformin and insulin glargine Continue glargine Add insulin sliding scale, hold metformin (4) CAD (coronary artery disease): Plan: Type 2 ME History of CAD, currently patient was supposed to get a stent soon Continue metoprolol statin Plavix and aspirin -Left main cannulated with JL 3.5 guide -BMW wire placed into mid LAD Francois IVUS catheter placed to proximal LAD Pullback revealed diffuse LMCA calcified disease involving mid/distal segments. CSA 5.0 mm. IVUS catheter removed and ACIST Catheter placed across stenosis -Pd/Pa 0.9 -FFR 0.83 -Coronary angiography revealed no apparent complications post wire/catheter removal Summary: 1. Multivessel coronary artery disease 40% diffuse left main CAD (severe by IVUS CSA 5.0 mm, borderline by FFR 0.83). 99% heavily calcified proximal RCA with luqt-kw-[id number] collaterals 60% mid small circumflex Recommendations: Consideration of CABG versus high risk PCI when GI/infectious issues resolved Plan Monitor on telemetry Full code DVT prophylaxis SCDs Admission and Anticipated Discharge Date Admission Date: August 23, 2023 Subjective Patient reports feeling well. He has no new complaints. Has not had any GI symptoms such as nausea vomiting today. Review of Systems Review of Systems: All systems reviewed & are unremarkable except as noted in HPI & below Physical Exam Physical Exam: The patient is awake, alert and oriented 3, well developed and well nourished, normocephalic and atraumatic, lying in bed and in no acute distress. HEENT--PERRL, EOMI, mucous membranes and oropharynx mildly dry Neck--supple. No JVD. No bruits. Thyroid normal, trachea midline, no adenopathy. Heart--normal S1 and S2. No murmurs, rubs or gallops. Lungs--clear bilaterally, no respiratory distress, no accessory muscle use. Abdomen--normal bowel sounds and soft. Mild epigastric and left sided abdominal pain Extremities--no cyanosis or clubbing. No edema. Dermatologic--normal skin turgor, normal color, no abnormal lymph nodes, no rash. Neurologic--cranial nerves II through XII grossly intact. Rheumatologic--normal range of motion. Psychiatric--normal affect. Results & Data Results & Data Vital Signs (Past 12 Hours) Vital Signs Temp Pulse Pulse Resp BP Pulse Ox O2 Del Method 08/24/23 19:36 37.2 C 83 18 106/53 L 95 Room Air 08/24/23 15:42 80 18 122/61 95 Room Air 08/24/23 15:12 78 18 120/65 94 Room Air 08/24/23 14:42 79 16 116/58 L 93 Room Air 08/24/23 14:12 82 16 114/57 L 94 Room Air 08/24/23 13:50 78 20 104/54 L 94 Room Air 08/24/23 13:35 79 20 128/58 L 94 Room Air 08/24/23 11:25 36.5 C 74 19 96/55 L 95 Room Air PG Care Time/CCT Total # of Minutes Spent Total Time Spent with Patient: Total time spent is greater than 50% in coordination of care (as documented) at patient's floor/unit and/or counseling patient: Coding Level of Care Code 02046 SUB INP/OBS CARE 2MIN Diagnoses Enteritis K52.9 Ileus K56.7 Diabetes mellitus, type 2 E11.9 CAD (coronary artery disease) I25.10
[2023-08-25 00:05] LABS: Partial Thromboplastin Ratio 1.9
[2023-08-25] MEDS: PIPERACILLIN/TAZOBACTAM 4.5 GM in DEXTROSE 5% MINI-B 100 ML IV SCH ×4 (00:20→23:47)
[2023-08-25] MEDS: HEPARIN SODIUM/DEXTROSE 25,000 UNITS/500 ML BAG IV SCH ×2 (00:23→04:50)
[2023-08-25 00:37] LABS: Partial Thromboplastin Time 54.1 Seconds (21.0-31.0)
--- NOTE | 2023-08-25 05:49 | Electrocardiogram Report ---
Test Reason : Blood Pressure : / mmHG Vent. Rate : 115 BPM Atrial Rate : 115 BPM P-R Int : 158 ms QRS Dur : 130 ms QT Int : 390 ms P-R-T Axes : 043 -01 030 degrees QTc Int : 539 ms Sinus tachycardia Right bundle branch block Inferior infarct (cited on or before 21-AUG-2023) Abnormal ECG When compared with ECG of 21-AUG-2023 11:34, Vent. rate has increased BY 38 BPM Confirmed by Bertrand Amaral ([id number]) on 08/25/2023 5:49:02 AM Referred By: Maria E Locke Confirmed By:Bertradn Amaral
[2023-08-25 07:40] LABS: BUN Creatinine Ratio 17.7 (10-20); Calcium 8.7 mg/dl (8.6-10.3); Creatinine Clr Calc Pharmacy 60.9 ml/min; Est GFR (African American) 89.9 ml/min; Est GFR (Non-African American) 77.6 ml/min; Potassium 3.8 mmol/L (3.5-5.1)
[2023-08-25 08:04] LABS: Partial Thromboplastin Ratio 2.1
[2023-08-25] MEDS: INSULIN ASPART PER UNIT CHARGE SC SCH ×4 (08:09→20:21)
[2023-08-25] MEDS: METOPROLOL TARTRATE 25 MG TAB PO SCH ×2 (08:10→20:21)
[2023-08-25] MEDS: PANTOprazole 40 MG TAB PO SCH (08:10)
[2023-08-25] MEDS: ASPIRIN 81 MG ECTAB PO SCH (08:10)
[2023-08-25] MEDS: TAMSULOSIN HCL 0.4 MG CAP PO SCH (08:11)
[2023-08-25] MEDS: lisinopril 10 MG TAB PO SCH (08:11)
[2023-08-25] MEDS: CLOPIDOGREL BISULFATE 75 MG TAB PO SCH (08:11)
[2023-08-25] MEDS: LANTUS PER UNIT CHARGE SQ SCH (08:16)
[2023-08-25 08:37] LABS: Partial Thromboplastin Time 59.6 Seconds (21.0-31.0)
--- NOTE | 2023-08-25 12:46 | Cardiology Progress Note ---
Date of Service August 25, 2023 Assessment & Plan (1) Non-ST elevation (NSTEMI) myocardial infarction: (2) Hypertension: (3) Hyperlipidemia: (4) CAD (coronary artery disease): Plan ASSESSMENT/PLAN: 1. NSTEMI: Multivessel CAD with severe left main by IVUS and heavily calcified proximal RCA with [id number] collaterals. Recommend evaluation by CT surgery which can be done as an outpatient, unless he should develop unstable anginal symptoms. Chronically on dual antiplatelet therapy by other providers. Continue aspirin and Plavix. Beta-minerva has been titrated upward and tolerated. Continue FRANCIE inhibitor. Continue high intensity statin therapy which was initiated this hospital stay. Recommend cardiac rehab following revascularization, if done. 2. CAD: Multivessel CAD as above. Medical therapy for now with CT surgery consultation to discuss potential CABG or high risk PCI if deemed not a suitable surgical candidate. 3. Hypertension: Blood pressure well controlled. Continue FRANCIE inhibitor and beta-minerva. 4. Dyslipidemia: Goal LDL <70. Recommend high intensity statin therapy in place of lovastatin. Atorvastatin initiated this hospital stay. He denies any allergies. 5. Carotid artery stenosis: Severe bilateral stenosis. Follows with Dr. Cho. 6. Disposition: Can be discharged home from a cardiology perspective. He initially presented with GI issues and is being treated with antibiotics for enteritis as per primary hospitalist. Patient would like to follow-up with cardiology through the [facility]. Please arrange. Admission and Anticipated Discharge Date Admission Date: August 23, 2023 Subjective Patient seen earlier this afternoon with family at the bedside. No chest pain, shortness of breath, syncope, near syncope, palpitations, edema, or bleeding. He is tolerating his diet without nausea or vomiting. He stated today that he prefers to follow with cardiology through the [facility] system for financial reasons. He also supplied a cell phone number for [facility] [place] with [place] surgery appointment. This was passed along to office staff to pass along to [facility]. Physical Exam Physical Exam: Gen.: No acute distress. Alert and oriented. HEENT: Anicteric sclera. Neck: No JVD. Cardiac: No ventricular heave. Regular. Normal S1-S2. No murmurs, rubs, or gallops. Pulmonary: Clear to auscultation bilaterally without wheezes, rales, or rhonchi. Abdomen: Soft, nontender, nondistended, with normoactive bowel sounds. No bruits noted. Extremities: 2+ radial pulses bilaterally. 2+ posterior tibialis pulses bilaterally. No significant edema. No cyanosis. Psychiatric: Affect appears appropriate. Results & Data Vital Signs (Past 12 Hours) Vital Signs Temp Pulse Pulse Resp BP Pulse Ox O2 Del Method 08/25/23 11:35 36.9 C 72 17 107/65 96 Room Air 08/25/23 07:40 81 08/25/23 07:26 36.8 C 80 18 118/66 95 Room Air 08/25/23 04:23 36.8 C 86 14 94/59 L 93 Room Air Laboratory Results Laboratory Results - last 24 hr 08/24/23 08/24/23 08/24/23 12:16 12:53 15:45 APTT 54.4 H* PTT Ratio 1.9 Activ Coag Time Kaolin 161 H 191 H Sodium Potassium Chloride Carbon Dioxide Anion Gap BUN Creatinine Est Cr Clr Drug Dosing Est GFR ( Amer) Est GFR (Non-Af Amer) BUN/Creatinine Ratio Glucose POC Glucose Calcium Troponin I High Sens Triglycerides Cholesterol LDL Cholesterol, Calc VLDL Cholesterol, Calc HDL Cholesterol Cholesterol/HDL Ratio 08/24/23 08/24/23 08/24/23 15:45 16:10 19:59 APTT PTT Ratio Activ Coag Time Kaolin Sodium Potassium Chloride Carbon Dioxide Anion Gap BUN Creatinine Est Cr Clr Drug Dosing Est GFR ( Amer) Est GFR (Non-Af Amer) BUN/Creatinine Ratio Glucose POC Glucose 82 177 H Calcium Troponin I High Sens 6242.1 H* D Triglycerides 85 Cholesterol 96 LDL Cholesterol, Calc 30 VLDL Cholesterol, Calc 17 HDL Cholesterol 49 Cholesterol/HDL Ratio 2.0 08/24/23 08/25/23 08/25/23 22:56 06:32 06:32 APTT 54.1 H* 59.6 H* PTT Ratio 1.9 2.1 Activ Coag Time Kaolin Sodium 136 Potassium 3.8 Chloride 101 Carbon Dioxide 29 Anion Gap 6 BUN 17 Creatinine 0.96 Est Cr Clr Drug Dosing 60.9 Est GFR ( Amer) 89.9 Est GFR (Non-Af Amer) 77.6 BUN/Creatinine Ratio 17.7 Glucose 101 H POC Glucose Calcium 8.7 Troponin I High Sens Triglycerides Cholesterol LDL Cholesterol, Calc VLDL Cholesterol, Calc HDL Cholesterol Cholesterol/HDL Ratio 08/25/23 08/25/23 06:58 10:59 APTT PTT Ratio Activ Coag Time Kaolin Sodium Potassium Chloride Carbon Dioxide Anion Gap BUN Creatinine Est Cr Clr Drug Dosing Est GFR ( Amer) Est GFR (Non-Af Amer) BUN/Creatinine Ratio Glucose POC Glucose 100 H 113 H Calcium Troponin I High Sens Triglycerides Cholesterol LDL Cholesterol, Calc VLDL Cholesterol, Calc HDL Cholesterol Cholesterol/HDL Ratio Diagnostic Findings Labs reviewed and notable for stable renal function, normal potassium. Peak troponin 12,134. Normal hemoglobin. Telemetry personally reviewed: Sinus rhythm. No arrhythmia. Medications Administered Current Inpatient Medications Acetaminophen (Acetaminophen 325 Mg Tab) 650 mg PO Q4H PRN PRN Reason: Pain or Fever Stop: 09/22/23 22:07 Albuterol (Albuterol Hfa 8 Gm Inhaler) 1 puffs INH QID PRN PRN Reason: sob Stop: 09/22/23 22:39 Aspirin (Aspirin 81 Mg Ectab) 81 mg PO DAILY LUKE Stop: 09/23/23 08:59 Last Admin: 08/25/23 08:10 Dose: 81 mg Atorvastatin Calcium (Atorvastatin 40 Mg Tab) 80 mg PO HS LUKE Stop: 09/24/23 20:59 Clopidogrel Bisulfate (Clopidogrel Bisulfate 75 Mg Tab) 75 mg PO DAILY LUKE Stop: 09/23/23 08:59 Last Admin: 08/25/23 08:11 Dose: 75 mg Dextrose (Dextrose 50% 50 Ml Syringe) 25 - 50 ml IV UD PRN; Protocol PRN Reason: Hypoglycemia Protocol Stop: 09/22/23 22:59 Glucagon (Glucagon For Inj 1 Mg Vial) 1 mg IM UD PRN; Protocol PRN Reason: Hypoglycemia Protocol Stop: 09/22/23 22:59 Glucose (Glucose 40% Gel 15 Gm Tube) 15 - 30 gm PO UD PRN; Protocol PRN Reason: Hypoglycemia Protocol Stop: 09/22/23 22:59 Glucose (Glucose 10 Tab/Tube) 4 - 8 tab PO UD PRN; Protocol PRN Reason: Hypoglycemia Protocol Stop: 09/22/23 22:59 Piperacillin Sod/Tazobactam (Sod 4.5 gm/ Dextrose) 100 mls @ 25 mls/hr IV Q8H LUKE; Protocol Stop: 09/03/23 03:59 Last Infusion: 08/25/23 12:13 Dose: Infused Heparin Sodium/Dextrose (Heparin Sodium/Dextrose) 25,000 units in 500 mls @ 25 mls/hr IV .Q20H LUKE; Protocol Stop: 09/23/23 00:44 Last Titration: 08/25/23 08:56 Dose: 1,250 units/hr, 25 mls/hr Insulin Aspart (Insulin Aspart Per Unit Charge) 0 units SC ACHS [facility] Stop: 09/23/23 07:29 Last Admin: 08/25/23 12:05 Dose: 4 units Insulin Glargine (L[facility]us Per Unit Charge) [facility]: 09/23/23 08:59 Last Admin: 08/25/23 08:16 Dose: 30 units Lisinopril (Lisinopril 10 Mg Tab) 10 mg PO QAM [facility] Stop: 09/23/23 08:59 Last Admin: 08/25/23 08:11 Dose: 10 mg Metoprolol Tartrate (Metoprolol Tartrate 25 Mg Tab) 25 mg PO BID [facility] Stop: 09/23/23 20:59 Last Admin: 08/25/23 08:10 Dose: 25 mg Miscellaneous (Carbohydrates For Hypoglycemia ) 15 - 30 gm PO UD PRN PRN Reason: Hypoglycemia Treatment Stop: 09/22/23 22:59 Ondansetron HCl (Ondansetron Inj 2 Mg/Ml 2 Ml Vial) 4 mg IV Q6H PRN PRN Reason: Nausea Stop: 09/22/23 22:07 Oxycodone/Acetaminophen (Oxycodone/Acetaminophen 10-325 Tab) 1 tab PO Q6H PRN PRN Reason: Pain Stop: 09/06/23 22:39 Pantoprazole Sodium (Pantoprazole 40 Mg Tab) [facility] Stop: 09/23/23 08:59 Last Admin: 08/25/23 08:10 Dose: 40 mg Tamsulosin HCl (Tamsulosin Hcl 0.4 Mg Cap) 0.4 mg PO QAM [facility] Stop: 09/23/23 08:59 Last Admin: 08/25/23 08:11 Dose: 0.4 mg PG Care Time/CCT Total # of Minutes Spent Total Time Spent with Patient: Total time spent is greater than 50% in coordination of care (as documented) at patient's floor/unit and/or counseling patient: Coding Level of Care Code 20468 SUB INP/OBS CARE 3/50MIN Diagnoses Non-ST elevation (NSTEMI) myocardial infarction I21.4 Hypertension I10 Hyperlipidemia E78.5 CAD (coronary artery disease) I25.10
[2023-08-25 14:48] LABS: Hematocrit (blood only) 41.5 % (42.0-52.0); Mean Corpuscular Hemoglobin 31.3 pg (25.0-34.0); Mean Corpuscular Hgb Conc 33.7 g/dL (32.0-36.0); Mean Corpuscular Volume 92.8 fL (80.0-100.0); Mean Platelet Volume 9.3 fL (9.4-12.4); Platelet Count 188 K/uL (130-400); RDW Coefficient of Variation 13.2 % (11.5-14.5); RDW Standard Deviation 45.1 fL (36.4-46.3); Red Blood Count 4.47 M/uL (4.70-6.10); White Blood Count 8.09 K/ul (4.8-10.8)
[2023-08-25] MEDS ORDERED: ATORVASTATIN 40 MG TAB PO SCH (21:00)
--- NOTE | 2023-08-25 22:03 | Hospitalist Progress Note ---
Date of Service August 25, 2023 Assessment & Plan (1) Enteritis: Plan: Posible Sepsis secondary to enteritis Patient presents from [facility] with complaints of nausea and vomiting diarrhea CT scan of the abdomen and pelvis showed evidence of enteritis or ileus Initial serum lactate was 3 however after some IV fluid it went down to 2 Symptoms appear to have resolved on 08/24. will continue zosyn. Family concerned about exposure to agent orange from his time in the , they would like a GI consult. Unsure if there will be any intervention and this was shared with family. (2) Ileus: Plan: CT also showed evidence of suspected ileus Currently patient he had a bowel movement in the morning, but has not passed gas since then On examination abdomen was tympanitic and mildly tender Diet resumed. (3) Diabetes mellitus, type 2: Plan: Blood glucose under fair control At home on metformin and insulin glargine Continue glargine Add insulin sliding scale, hold metformin (4) CAD (coronary artery disease): Plan: Type 2 MD History of CAD, currently patient was supposed to get a stent soon Continue metoprolol statin Plavix and aspirin -Left main cannulated with JL 3.5 guide -BMW wire placed into mid LAD Francois IVUS catheter placed to proximal LAD Pullback revealed diffuse LMCA calcified disease involving mid/distal segments. CSA 5.0 mm. IVUS catheter removed and ACIST Catheter placed across stenosis -Pd/Pa 0.9 -FFR 0.83 -Coronary angiography revealed no apparent complications post wire/catheter removal Summary: 1. Multivessel coronary artery disease 40% diffuse left main CAD (severe by IVUS CSA 5.0 mm, borderline by FFR 0.83). 99% heavily calcified proximal RCA with [id number] collaterals 60% mid small circumflex Recommendations: Consideration of CABG versus high risk PCI when GI/infectious issues resolved On hearin for 48 hours. Plan Monitor on telemetry Full code DVT prophylaxis SCDs Admission and Anticipated Discharge Date Admission Date: August 23, 2023 Subjective Patient reports no new symptoms. Patient has no GI symptoms. Review of Systems Review of Systems: All systems reviewed & are unremarkable except as noted in HPI & below Physical Exam Physical Exam: The patient is awake, alert and oriented 3 HEENT--PERRL, EOMI, mucous membranes and oropharynx mildly dry Neck--supple. No JVD. No bruits. Thyroid normal, trachea midline, no adenopathy. Heart--normal S1 and S2. No murmurs, rubs or gallops. Lungs--clear bilaterally, no respiratory distress, no accessory muscle use. Abdomen--normal bowel sounds and soft. Mild epigastric and left sided abdominal pain Extremities--no cyanosis or clubbing. No edema. Rheumatologic--normal range of motion. Psychiatric--normal affect. Results & Data Results & Data Vital Signs (Past 12 Hours) Vital Signs Temp Pulse Pulse Pulse Resp BP BP 08/25/23 20:00 36.7 C 76 20 139/59 L 08/25/23 16:00 75 08/25/23 15:22 36.5 C 70 20 116/64 08/25/23 11:35 36.9 C 72 17 107/65 Pulse Ox O2 Del Method 08/25/23 20:00 94 Room Air 08/25/23 16:00 08/25/23 15:22 97 Room Air 08/25/23 11:35 96 Room Air PG Care Time/CCT Total # of Minutes Spent Total Time Spent with Patient: Total time spent is greater than 50% in coordination of care (as documented) at patient's floor/unit and/or counseling patient: Coding Level of Care Code 83175 SUB INP/OBS CARE MIN Diagnoses Enteritis K52.9 Ileus K56.7 Diabetes mellitus, type 2 E11.9 CAD (coronary artery disease) I25.10
[2023-08-26] MEDS: HEPARIN SODIUM/DEXTROSE 25,000 UNITS/500 ML BAG IV SCH (00:50)
[2023-08-26 07:30] LABS: Basophils # (auto) 0.04 K/uL (0.00-0.20); Basophils % (auto) 0.6 %; Eosinophils # (auto) 0.13 K/uL (0.00-0.50); Eosinophils % (auto) 1.9 %; Hematocrit (blood only) 40.5 % (42.0-52.0); Hemoglobin 14.2 g/dl (14.0-18.0); Immature Granulocytes # (auto) 0.03 K/uL (0.01-0.20); Immature Granulocytes % (auto) 0.4 %; Lymphocytes # (auto) 1.94 K/uL (1.20-3.40); Lymphocytes % (auto) 28.9 %; Mean Corpuscular Hemoglobin 31.8 pg (25.0-34.0); Mean Corpuscular Hgb Conc 35.1 g/dL (32.0-36.0); Mean Corpuscular Volume 90.6 fL (80.0-100.0); Mean Platelet Volume 9.4 fL (9.4-12.4); Monocytes # (auto) 0.64 K/uL (0.11-0.59); Monocytes % (auto) 9.5 %; Neutrophils # (auto) 3.93 K/uL (1.40-6.50); Neutrophils % (auto) 58.7 %; Platelet Count 203 K/uL (130-400); RDW Standard Deviation 43.2 fL (36.4-46.3); Red Blood Count 4.47 M/uL (4.70-6.10); White Blood Count 6.71 K/ul (4.8-10.8)
[2023-08-26] MEDS: PIPERACILLIN/TAZOBACTAM 4.5 GM in DEXTROSE 5% MINI-B 100 ML IV SCH (07:47)
[2023-08-26] MEDS: METOPROLOL TARTRATE 25 MG TAB PO SCH (08:02)
[2023-08-26] MEDS: LANTUS PER UNIT CHARGE SQ SCH (08:03)
[2023-08-26] MEDS: CLOPIDOGREL BISULFATE 75 MG TAB PO SCH (08:03)
[2023-08-26] MEDS: INSULIN ASPART PER UNIT CHARGE SC SCH ×2 (08:03→12:14)
[2023-08-26] MEDS: PANTOprazole 40 MG TAB PO SCH (08:04)
[2023-08-26] MEDS: lisinopril 10 MG TAB PO SCH (08:04)
[2023-08-26] MEDS: ASPIRIN 81 MG ECTAB PO SCH (08:04)
[2023-08-26] MEDS: TAMSULOSIN HCL 0.4 MG CAP PO SCH (08:04)
[2023-08-26 08:21] LABS: Partial Thromboplastin Ratio 1.8
[2023-08-26 08:27] LABS: Partial Thromboplastin Time 50.7 Seconds (21.0-31.0)
--- NOTE | 2023-08-26 09:19 | Gastrointestinal Consultation ---
Date of Consultation August 26, 2023 Assessment & Plan (1) Enteritis: Symptoms of enteritis have resolved. Seems to have been transient and likely infectious in nature. His main concern from a GI standpoint is his reported history of gastroparesis. He tells me he has had this for several decades. [facility] do not have these [facility]. I explained to the patient that certainly he can have further GI work up of gastroparesis in the future, though my main concern would be his cardiac issues, especially when he reports his GI symptoms can be months between episodes. I explained to him that gastroparesis did not cause his AL, though it is possible that cardiac issues can cause GI symptoms. Would recommend he undergo recommendations from cardiology and once recovered he can undergo outpatient work up for gastroparesis with an updated GES. We discussed smaller, more frequent meals. He reports past Reglan use but is not clear on why he stopped this. Given that he has already trialed these more conservative measures, he would likely benefit from a tertiary evaluation at [facility] if he does indeed have gastroparesis. Supervising Physician Co-Signing Physician Notes Agree with ROGERIO Ward as above Patient discharged prior to my evaluation History of Present Illness Reason for Consultation: Agent orange exposure / Gastroparesis Requesting Physician: Kristopher Manley MD Attending Physician: Maria E Locke MD History of Present Illness Patient is a 73 year old male with past medical history of DM II, hyperlipidemia, and htn, who was seen at the ER in [place] with complaints of a few days of nausea, vomiting, and diarrhea. He reportedly had a CT scan showing enteritis vs ileus. He was transferred to [facility] [address] for further evaluation. When patient arrived here he was also having complaints of chest pain. Cardiology evaluation was done given elevated troponin. He was felt to have had a NSTEMI and had cardiac catheterization showing multivessel coronary artery disease including a 99% heavily calcified proximal RCA with left to right collaterals. It was recommended he be considered for CABG vs high risk PCI once his GI issues resolved. He tells me that since he has been admitted his GI issues have resolved. He has had no further nausea, vomiting, or diarrhea. He denies any abdominal pain, SOB, or further chest pain. Currently, his GI ROS is unremarkable. He tells me that his family his concerned because he was told he in the past that he had gastroparesis. He tells me he has had issues with this for several decades. He tries to follow a gastroparesis diet. He tells me that in the past he thinks he was on reglan but he is not clear on why he would have stopped this. He admits he can have episodes of "slow emptying" but tells me he may only have one of these episodes once every few weeks to months. When he has these episodes he tells me he feels very sick. He tells me he has not had an emptying study in many years but it was initially done at the [facility]. He also tells me he has had several scopes over the years for this. Patient was concerned that his AL was caused by his gastroparesis. Allergies Allergy/AdvReac Type Severity Reaction Status Date / Time No Known Allergies Allergy Verified 08/13/23 13:12 Home Medications Medication Instructions Recorded Confirmed Type lisinopril 10 mg tablet 10 mg PO QAM 04/30/20 08/24/23 History omeprazole 20 mg capsule,delayed 20 mg PO QAM 04/30/20 08/24/23 History release polyethylene glycol 3350 17 17 gm PO DAILY PRN Constipation 04/30/20 08/24/23 History gram/dose oral powder tamsulosin 0.4 mg capsule 0.4 mg PO QAM 04/30/20 08/24/23 History albuterol sulfate 90 mcg/actuation 1 inh inhalation QID PRN sob 05/29/20 08/24/23 History aerosol inhaler (Ventolin HFA) insulin glargine 100 unit/mL 30 unit subcut QAM 05/29/20 08/24/23 History subcutaneous solution (Lantus U-100 Insulin) aspirin 81 mg tablet,delayed 81 mg PO DAILY 08/13/23 08/24/23 History release clopidogrel 75 mg tablet 75 mg PO DAILY 08/13/23 08/24/23 History baclofen 10 mg tablet 10 mg PO TID PRN Muscle Spasm 08/24/23 08/24/23 History cetirizine 10 mg tablet (Zyrtec) 10 mg PO DAILY PRN Allergy Symptoms 08/24/23 08/24/23 History cyanocobalamin (vitamin B-12) 1,000 mcg PO DAILY 08/24/23 08/24/23 History 1,000 mcg tablet (Vitamin B-12) docusate sodium 100 mg capsule 100 mg PO BID PRN Constipation 08/24/23 08/24/23 History empagliflozin 25 mg tablet 25 mg PO QAM 08/24/23 08/24/23 History (Jardiance) fluticasone propionate 50 1 spray intranasal HS 08/24/23 08/24/23 History mcg/actuation nasal spray,suspension magnesium oxide 420 mg tablet 420 mg PO DAILY 08/24/23 08/24/23 History meloxicam 15 mg tablet 15 mg PO DAILY PRN Pain 08/24/23 08/24/23 History metformin 500 mg tablet,extended 1,000 mg PO BID 08/24/23 08/24/23 History release 24hr mirtazapine 30 mg tablet 15 mg PO DAILY 08/24/23 08/24/23 History sennosides 8.6 mg tablet (senna) 8.6 mg PO BID PRN Constipation 08/24/23 08/24/23 History atorvastatin 40 mg tablet 80 mg PO HS 30 days #60 tabs 08/26/23 Rx metoprolol tartrate 25 mg tablet 25 mg PO BID 30 days #60 tabs 08/26/23 Rx Patient History Medical History (Updated 08/24/23 @ 15:57 by Bertrand Amaral MD) Aortic aneurysm [facility] (08/16/23): Dilated aortic root (4.1 cm) and ascending aorta (4.3 cm) BPH (benign prostatic hyperplasia) CAD (coronary artery disease) Carotid artery stenosis Neck CTA 08/05/23: Extensive atherosclerotic disease resulting in 90% right coronal and carotid artery stenosis and 80% left common carotid artery stenosis. Chronic obstructive pulmonary disease Diabetes mellitus, type 2 Gastroparesis GERD (gastroesophageal reflux disease) Hyperlipidemia Hypertension Surgical History Hx of cholecystectomy Hx of colonoscopy Hx of esophagogastroduodenoscopy Hx of tonsillectomy Family History Mother Diabetes Sister Diabetes Social History Smoking Status: Former smoker Second Hand Exposure: No; Do You Dip or Chew Tobacco: No; Hx Alcohol Use: No Hx Substance Use: No Preferred Language: Taiwanese Communication Ability: Effective Gas Golf Cart [employer]r Required: No Beliefs That Will Affect Care: None Current Living Situation: Spouse Feels Safe at Home: Yes Assistive Devices: None Review of Systems Review of Systems: All systems reviewed & are unremarkable except as noted in HPI & below Physical Exam Constitutional: WD/WN, vitals as above Respiratory: normal respiratory effort, lungs clear to auscultation Cardiovascular: RRR, no murmur, no edema Gastrointestinal (Abdomen): normal bowel sounds, soft, nontender, no hepatosplenomegaly Skin: no rashes, warm and dry Psychiatric: Orientation: alert and oriented x 3 Affect: euthymic affect Results & Data Vital Signs (Past 12 Hours) Vital Signs Temp Pulse Pulse Pulse Resp BP BP 08/26/23 08:00 97.5 F L 70 20 145/70 H 08/26/23 03:15 97.9 F 73 16 100/54 L 08/25/23 23:24 97.9 F 70 18 104/58 L 08/25/23 21:59 65 Pulse Ox O2 Del Method 08/26/23 08:00 96 Room Air 08/26/23 03:15 94 Room Air 08/25/23 23:24 97 Room Air 08/25/23 21:59 PG Care Time/CCT Total # of Minutes Spent Total Time Spent with Patient: Total time spent is greater than 50% in coordination of care (as documented) at patient's floor/unit and/or counseling patient: Coding Level of Care Code 03355 INT INP/OBS CARE 2/55MIN Diagnoses Enteritis K52.9 Time Spent (min) 58
--- NOTE | 2023-08-26 11:12 | Discharge Summary ---
Date of Service August 26, 2023 Admission HPI Per Admitting Provider Is a 73-year-old male with a history of CAD, type 2 diabetes who was a transfer from [place] emergency department. According to the patient presented to [facility] on account of nausea and vomiting and diarrhea which have been going on for a few days. In location, CBC showed a WBC of 20,000, serum lactate of 3 and he was tachycardic heart rate in the 120s blood pressure was 130/80. A CT scan of the abdomen pelvis was done which showed evidence of a fluid-filled nondilated loops suspicious for enteritis or ileus. When I saw the patient here he said he has been feeling weak and also complained of diffuse chest pain nonradiating. However he denies shortness of breath Troponin and EKG been ordered and blood cultures already obtained [facility], will obtain a repeat here. Continue IV Zosyn which was started at [facility]. He already received a dose of Vanco in [facility] as well Principal Diagnosis multi vessel CAD Discharge Exam The patient is awake, alert and oriented 3, well developed and well nourished, normocephalic and atraumatic, lying in bed and in no acute distress. HEENT--PERRL, EOMI, mucous membranes and oropharynx mildly dry Neck--supple. No JVD. No bruits. Thyroid normal, trachea midline, no adenopathy. Heart--normal S1 and S2. No murmurs, rubs or gallops. Lungs--clear bilaterally, no respiratory distress, no accessory muscle use. Abdomen--normal bowel sounds and soft. Mild epigastric and left sided abdominal pain Extremities--no cyanosis or clubbing. No edema. Dermatologic--normal skin turgor, normal color, no abnormal lymph nodes, no rash. Neurologic--cranial nerves II through XII grossly intact. Rheumatologic--normal range of motion. Psychiatric--normal affect. Discharge Data Allergies Allergy/AdvReac Type Severity Reaction Status Date / Time No Known Allergies Allergy Verified 08/13/23 13:12 Consultations 08/24/23 00:41 Consult Cardiology Routine 08/25/23 14:46 Consult Gastroenterology Routine Procedures Performed Operation Date: 08/24/23 11:45 Actual Procedures p Cineradiography w/Routine Exam - Bertrand Amaral MD s IVUS Coronary Single Vessel - Julio Parikh MD s Fraction Flow [place] SGL Ves - Julio Parikh MD p Cath, Left with Cors and Vent - Julio Parikh MD Ordered Studies 08/24/23 11:25 CL Cath Imgs for PACS use only Stat Hospital Course (1) Enteritis: Posible Sepsis secondary to enteritis Patient presents from [place] with complaints of nausea and vomiting diarrhea CT scan of the abdomen and pelvis showed evidence of enteritis or ileus Initial serum lactate was 3 however after some IV fluid it went down to 2 Symptoms appear to have resolved on 08/24. Family concerned about exposure to agent orange from his time in the , Gi evaluated, no procedures for now (2) Ileus: CT also showed evidence of suspected ileus Currently patient he had a bowel movement in the morning, but has not passed gas since then On examination abdomen was tympanitic and mildly tender Diet resumed. (3) Diabetes mellitus, type 2: Blood glucose under fair control At home on metformin and insulin glargine Continue glargine Add insulin sliding scale, hold metformin (4) CAD (coronary artery disease): Type 2 ID History of CAD, currently patient was supposed to get a stent soon Continue metoprolol statin Plavix and aspirin -Left main cannulated with JL 3.5 guide -BMW wire placed into mid LAD Francois IVUS catheter placed to proximal LAD Pullback revealed diffuse LMCA calcified disease involving mid/distal segments. CSA 5.0 mm. IVUS catheter removed and ACIST Catheter placed across stenosis -Pd/Pa 0.9 -FFR 0.83 -Coronary angiography revealed no apparent complications post wire/catheter removal Summary: 1. Multivessel coronary artery disease 40% diffuse left main CAD (severe by IVUS CSA 5.0 mm, borderline by FFR 0.83). 99% heavily calcified proximal RCA with [id number] collaterals 60% mid small circumflex Recommendations: Consideration of CABG versus high risk PCI when GI/infectious issues resolved NSTEMI: Multivessel CAD with severe left main by IVUS and heavily calcified proximal RCA with [id number] collaterals. Recommend evaluation by CT surgery which can be done as an outpatient, unless he should develop unstable anginal symptoms. Chronically on dual antiplatelet therapy by other providers. Continue aspirin and Plavix. Beta-minerva has been titrated upward and tolerated. Continue FRANCIE inhibitor. Continue high intensity statin therapy which was initiated this hospital stay. Recommend cardiac rehab following revascularization, if done. Plan d/c home follow up with [place] [facility] and Dr Cho Total Time Total Time Spent Total Time Spent (In Minutes): 35 Discharge Plan Discharge Items Patient Disposition: Home - Self-Care Reason For Visit: INTRACTIBLE NAUSEA/VOMITING, POSSIBLE SEPSIS Discharge Diagnosis: Enteritis, Multi vessel CAD Activity: Resume your previous activity Non-emergency contact: Primary Care Provider and Power Shovel Mechanic Call non-emergency contact if: you have any medication questions and your symptoms worsen Follow-up/Referrals: Verna Vallejo PA-C [Primary Care Provider] - Diet: Heart Healthy Addtl Attending Provider Instructions: ACTIVITY RECOMMENDATIONS: Excess manipulation of the wrist should be avoided for the next 24-48 hours. * No lifting over 2 pounds (approximately a 1/2 gallon of milk) with the utilized arm for 24 hours. * No strenuous activity such as bowling or tennis for 3 days. * Keep the site of the procedure covered with a bandage for 24 hours. *You may shower the day after the procedure. Do not take a tub bath or submerge the puncture site in water for the next 3 days. *Do not operate any motorized equipment for 3 days. SPECIAL CARE INSTRUCTIONS: The site may be slightly bruised and sore following your procedure. Should any of the following occur, contact the Dr. who performed your procedure. 1. Redness/inflammation, swelling, chills, or fever, or colored drainage at procedure site within 3-7 days after your procedure. 2. Coldness, discoloration, ongoing numbness, severe pain, or swelling. Expect mild tingling of hand and tenderness at the puncture site for up to three days. If this persists beyond three days, or other symptoms develop, notify the Dr. who performed your procedure. BLEEDING: If the procedure site on your wrist begins to bleed, do not panic 1. Place 1 or 2 fingers firmly just slightly above the insertion site to stop the bleeding. You may be able to feel your pulse as you hold pressure. 2. Lift your finger after 5 minutes to see if the bleeding has stopped. 3. Once the bleeding has stopped, gently wipe the wrist area clean with a bandage. * If the bleeding from your wrist does not stop after 10 minutes, or if there is a large amount of bleeding or spurting, call 911 (do not drive yourself to the hospital). SKIN IRRITATION: * You may experience some redness and/or swelling in the area where radiation was administered. If any skin irritation occurs, please contact your family physician. FOLLOW UP VISIT: 1. CT surgery consultation requested at [facility] [place] as per our discussion. [facility]. 3. Keep any scheduled doctor appointments. Pending Studies at Discharge: No Stand-Alone Forms: My [facility] [place], Smoking Cessation Medications and DC Order Prescriptions: New atorvastatin 40 mg Tablet 80 mg PO HS 30 Days Qty: 60 0RF metoprolol tartrate 25 mg Tablet 25 mg PO BID 30 Days Qty: 60 0RF Continued lisinopril 10 mg tablet 10 mg PO QAM omeprazole 20 mg capsule,delayed release(DR/EC) 20 mg PO QAM tamsulosin 0.4 mg capsule 0.4 mg PO QAM polyethylene glycol 3350 17 gram/dose powder 17 gm PO DAILY PRN (Reason: Constipation) insulin glargine [Lantus U-100 Insulin] 100 unit/mL Solution 30 unit SUBCUT QAM albuterol sulfate [Ventolin HFA] 90 mcg/actuation Hfa Aerosol Inhaler 1 inh INHALATION QID PRN (Reason: sob) clopidogrel 75 mg Tablet 75 mg PO DAILY aspirin 81 mg Tablet,Delayed Release (Dr/Ec) 81 mg PO DAILY sennosides [senna] 8.6 mg Tablet 8.6 mg PO BID PRN (Reason: Constipation) magnesium oxide 420 mg Tablet 420 mg PO DAILY cetirizine [Zyrtec] 10 mg Tablet 10 mg PO DAILY PRN (Reason: Allergy Symptoms) meloxicam 15 mg Tablet 15 mg PO DAILY PRN (Reason: Pain) cyanocobalamin (vitamin B-12) [Vitamin B-12] 1,000 mcg Tablet 1,000 mcg PO DAILY baclofen 10 mg Tablet 10 mg PO TID PRN (Reason: Muscle Spasm) mirtazapine 30 mg Tablet 15 mg PO DAILY docusate sodium 100 mg Capsule 100 mg PO BID PRN (Reason: Constipation) fluticasone propionate 50 mcg/actuation [place],Suspension 1 spray INTRANASAL HS Rx Instructions: administer into each nostril metformin 500 mg Tablet Extended Release 24hr 1,000 mg PO BID Jardiance 25 mg Tablet 25 mg PO QAM Discontinued lovastatin 40 mg tablet 40 mg PO QAM metoprolol tartrate 25 mg tablet 12.5 mg PO BID Discharge Orders: Discharge Order (Routine); Ordered 08/26/23 Ordered By: Maria E Locke Admission Data Admit Date/Time: 08/23/23 21:28 Attending Provider: Maria E Locke Admit Provider: Maria E Locke Primary Care Provider: Verna Vallejo Other Providers: [facility] ; Julio Loyd ; Taurus Clifford Coding Level of Care Code 81795 INP/OBS DISCH >30 MIN Diagnoses Enteritis K52.9 Ileus K56.7 Diabetes mellitus, type 2 E11.9 CAD (coronary artery disease) I25.10 Time Spent (min) 35
== END 2023-08-26 12:50 | disposition home or self-care (01) | DRG 871 ==
LOC: SUATTDRO 21:28 → 2S 21:28

== ENCOUNTER 2024-01-05 08:10 | Inpatient (IN) ==
--- NOTE | 2023-12-31 10:58 | Anesthesiology Consultation ---
Date of Service December 31, 2023 Assessment & Plan (1) Encounter for pre-operative examination: - Check BSG AM DOS - Infectious disease screening: Per assessment on 12/28/23: No known infectious disease contacts or current infectious disease symptoms. No noted recent Covid positive test result. - Cardiology visit (12/30/23): "He is doing quite well 3 months after bypass surgery.. He is undergoing a TCAR next week by Dr. Cho.. EKG today shows sinus rhythm right bundle branch block possible inferior posterior OH ageindeterminant left atrial abnormality.. Compared to his prior EKG postoperatively there is no change.. His echocardiogram from [facility] postoperatively was reviewed.. From my standpoint he is doing remarkably well.. At this point he is having some orthostatic symptoms and no swelling in his legs. I discussed with him he should stop his furosemide and.. potassium chloride. If still has orthostatic symptoms.. Reduce his lisinopril to 5 mg daily.. Once his TCAR is completed and he is regard we discussed he should consider cardiac rehab." - Patient acceptable risk for given surgery pending evaluation DOS. Chart Review Chart Review: Patient NOT seen in Pre Admission Testing History Surgery Operation Date: 01/05/24 09:30 Proposed Procedures p Left Transcarotid Artery Revascularization - Sacha Cho MD Height/Weight Height: 5 ft 6 in Weight: 80.739 kg Allergies Allergy/AdvReac Type Severity Reaction Status Date / Time No Known Allergies Allergy Verified 12/28/23 09:34 Medications Home Medications Medication Instructions Recorded Confirmed Last Taken omeprazole 20 mg capsule,delayed 20 mg PO DAILY PRN Acid Reflux 04/30/20 12/28/23 05/30/20 release tamsulosin 0.4 mg capsule 0.4 mg PO QAM 04/30/20 12/28/23 05/30/20 albuterol sulfate 90 mcg/actuation 1 inh inhalation QID PRN sob 05/29/20 12/28/23 Unknown aerosol inhaler (Ventolin HFA) aspirin 81 mg tablet,delayed 81 mg PO QAM 08/13/23 12/28/23 Unknown release clopidogrel 75 mg tablet 75 mg PO QAM 08/13/23 12/28/23 Unknown cyanocobalamin (vitamin B-12) 1,000 mcg PO QPM 08/24/23 12/28/23 Unknown 1,000 mcg tablet (Vitamin B-12) metformin 500 mg tablet,extended 500 mg PO BID 08/24/23 12/28/23 Unknown release 24hr (osmotic) mirtazapine 30 mg tablet 30 mg PO HS 08/24/23 12/28/23 Unknown atorvastatin 40 mg tablet 40 mg PO QPM 12/28/23 12/28/23 Unknown cholecalciferol (vitamin D3) 25 25 mcg PO QAM 12/28/23 12/28/23 Unknown mcg (1,000 unit) capsule (Vitamin D3) empagliflozin 25 mg tablet 12.5 mg PO QAM 12/28/23 12/28/23 Unknown guaifenesin 600 mg tablet, 600 mg PO BID 12/28/23 12/28/23 Unknown extended release 12 hr (Mucinex) insulin glargine 100 unit/mL 30 unit subcut QAM 12/28/23 12/28/23 Unknown subcutaneous solution (Lantus U-100 Insulin) loratadine 10 mg tablet (Claritin) 10 mg PO QAM 12/28/23 12/28/23 Unknown lorazepam 1 mg tablet 1 mg PO DAILY PRN Anxiety 12/28/23 12/28/23 Unknown metoprolol tartrate 25 mg tablet 25 mg PO BID 12/28/23 12/28/23 Unknown tramadol 50 mg tablet 50 mg PO Q8H PRN Pain 12/28/23 12/28/23 Unknown Past Medical History Medical History Aortic aneurysm [facility] monitoring [facility] (08/16/23): Dilated aortic root (4.1 cm) and ascending aorta (4.3 cm) BPH (benign prostatic hyperplasia) CAD (coronary artery disease) CABG x3 (08/2023) Follows with Dr. Espinoza Carotid artery stenosis Neck CTA 08/05/23: Extensive atherosclerotic disease resulting in 90% right coronal and carotid artery stenosis and 80% left common carotid artery stenosis. Chronic obstructive pulmonary disease Diabetes mellitus, type 2 Gastroparesis GERD (gastroesophageal reflux disease) Hearing deficit Hyperlipidemia Hypertension Myocardial Infarction 08/2023 Past Family History Family History Mother Diabetes Sister Diabetes Other No family history of adverse response to anesthesia Past Surgical History Surgical History History of cardiac cath 08/2023 at [place] prior to CABG History of coronary artery bypass graft 09/29/23> CABG x3 ([facility] [place]) Hx of cholecystectomy Hx of colonoscopy Hx of esophagogastroduodenoscopy Hx of tonsillectomy Social History Smoking Status: Former smoker Do You Dip or Chew Tobacco: No Smoking End Date: 2004? Hx Alcohol Use: No substance use type: does not use Lab Results Anesthesia Preop Results Results Anesthesia Widget: WBC 8.76 K/ul (4.8-10.8) 12/29/23 Hgb 14.0 g/dl (14.0-18.0) 12/29/23 Hct 44.0 % (42.0-52.0) 12/29/23 Plt 340 K/uL (130-400) 12/29/23 Na 135 mmol/L (136-145) L 12/29/23 K 4.2 mmol/L (3.5-5.1) 12/29/23 Cl 99 mmol/L (98-107) 12/29/23 CO2 30 mmol/L (21-32) 12/29/23 BUN 12 mg/dl (6-23) 12/29/23 Creat 0.65 mg/dl (0.6-1.4) 12/29/23 Glucose Level 101 mg/dl (70-99(Fasting)) H 12/29/23 PT 11.4 Seconds (9.0-12.0) 12/29/23 PTT 28 Seconds (21-31) 12/29/23 INR 1.0 (0.9-1.1) 12/29/23 Testing Electrocardiogram Date: 12/30/23 NSR at 78bpm. RBBB. Possible inferior infarct (cited on or before 09/23/2023). Echocardiogram Date: 10/02/23 EF 50-55%. Asymmetric basal hypertrophy of the elderly. Abnormal septal motion consistent with BBB. No significant valvular disease. No RWMA. Cardiac Catheterization Date: 08/24/23 Multivessel coronary artery disease 40% diffuse left main CAD (severe by IVUS CSA 5.0 mm, borderline by FFR 0.83), 99% heavily calcified proximal RCA with [id number] collaterals, 60% mid small circumflex Recommendations: Consideration of CABG versus high risk PCI when GI/infectious issues resolved *Subsequent CABG x3 08/2023 at [facility] [place]* Other Testing Neck CTA Date: 08/05/23 Extensive atherosclerotic disease resulting in 90% right coronal and carotid artery stenosis and 80% left common carotid artery stenosis. Assessment of stenosis of the internal carotid arteries is based on NASCET criteria. Chest CT Date: 12/29/23 1. Mild aneurysmal dilatation of the ascending thoracic aorta measuring up to 4.3 x 4.0 cm. 2. No evidence for an aortic dissection. 3. Severe stenosis within the proximal right common carotid artery. 4. Focal occlusion at the proximal celiac artery is better appreciated on the same day abdomen and pelvis CT. 5. Trace pericardial effusion. 6. A 4 mm indeterminate pulmonary nodule within the right lower lobe.
--- NOTE | 2024-01-05 08:33 | History & Physical Report ---
Date of Service January 05, 2024 History of Present Illness Primary Care Provider: Verna Vallejo PA-C Name: UNA LACKEY Patient Number: [id number] : 1950 Date of Service: 12/24/2023 Chief Complaint: _Follow-up for carotid disease HPI: _Mr. Lackey is an elderly male presents to Dr. Cho vascular surgery clinic today for follow-up appointment regarding his severe left ICA stenosis. Patient was originally seen by Dr. Cho and myself in July 2023 due to severe left ICA stenosis, and recommended to undergo intervention. Patient elected to undergo a left TCAR. During his preop workup, patient indicated that he had some occasional chest pains. He was referred for evaluation to a local microsoft application developer, and eventually underwent three-vessel CABG at [facility] in August 2023. Patient states he is anxious to get his TCAR procedure completed, as he is nervous about having a stroke. He states he has been cleared from cardiology to undergo the procedure. He has not had any postoperative complications. He does state to having an area of blurry vision in his left eye, but states that this has been there for many months. He denies any new complaints or concerns, specifically new amaurosis, extremity weakness numbness or tingling, difficulty speaking or swallowing, facial droop, sudden onset confusion. He remains very active and fully independent. Imaging: He underwent a left carotid artery ultrasound prior to today's appointment which continues to demonstrate 80 to 99% stenosis of the left ICA. It remains patent. Current Home Meds: (Last Updated 12/24 09:04) LORazepam (LORazepam 1 mg oral tablet) 1 mg PO tid PRN: as needed for anxiety acetaminophen 650 mg PO q6h PRN: fever/mild pain (1-3) albuterol-ipratropium (albuterol-ipratropium 2.5 mg-0.5 mg/3 mL inhalation solution) 3 mL inhaled qid PRN: as needed for shortness of breath or wheezing albuterol (albuterol CFC free 90 mcg/inh MDI) 2 puff inhaled qid PRN: as needed for wheezing aspirin (aspirin 81 mg oral delayed release tablet) 81 mg PO Daily atorvastatin (atorvastatin 40 mg oral tablet) 40 mg PO Daily baclofen (baclofen 10 mg oral tablet) 10 mg PO tid PRN: spasms carbamide peroxide otic (carbamide peroxide 6.5% otic solution) 10 drop right ear tid cholecalciferol (cholecalciferol 25 mcg (1000 intl units) oral capsule) 25 mcg PO Daily clopidogrel (Plavix 75 mg oral tablet) 75 mg PO Daily cyanocobalamin (cyanocobalamin 1000 mcg oral tablet) 2 tab PO Daily docusate (docusate sodium 100 mg oral capsule) 200 mg PO Daily PRN: as needed for constipation empagliflozin (empagliflozin 25 mg oral tablet) 25 mg PO qAM furosemide (Lasix 20 mg oral tablet) 20 mg PO Daily guaiFENesin (guaiFENesin 600 mg oral tablet, extended release) 600 mg PO bid insulin lispro subQ ac and hs lisinopril (lisinopril 10 mg oral tablet) 10 mg PO Daily loratadine (loratadine 10 mg oral capsule) 10 mg PO Daily magnesium oxide (magnesium oxide 420 mg oral tablet) 420 mg PO Daily metFORMIN (metFORMIN 500 mg oral tablet) 500 mg PO bid metoprolol (metoprolol tartrate 25 mg oral tablet) 25 mg PO bid mirtazapine (mirtazapine 30 mg oral tablet) 30 mg PO qhs omeprazole (omeprazole 20 mg oral delayed release capsule) 20 mg PO Daily polyethylene glycol 3350 (MiraLax) 17 g PO Daily potassium chloride 20 mEq PO Daily pregabalin (pregabalin 75 mg oral capsule) 75 mg PO bid senna (senna 8.6 mg oral tablet) 8.6 mg PO bid PRN: as needed for constipation tamSULOsin (tamsulosin 0.4 mg oral capsule) 0.4 mg PO Daily traMADol (traMADol 50 mg oral tablet) 50 mg PO q6h PRN: pain - severe (7-10) Allergies and Sensitivities: alogliptin(Rash) rOPINIRole(Rash) Past Medical History: Problems: Mixed dyslipidemia Hypertension with heart disease S/P CABG x 3 Coronary artery disease involving [place] heart Former smoker Benign prostate hyperplasia Chronic obstructive pulmonary disease Diabetes mellitus Hyperlipidemia Hypertension Stenosis of left internal carotid artery OBJECTIVE Vitals: Last Updated 12/24/23 09:07 Date Temp BP Location Pulse RR SpO2 Pain 12/24/23 138/54 Left Arm 97 98 0 11/03/23 0 10/14/23 37.0 126/60 Left Arm 130 18 99 Vital Signs are the last 3 documented. No Orthostatic Data Available Height and Weight: Last Updated 10/14/23 14:41 Date BMI Wt(kg) Wt(lb) Method Ht(cm) (ft-in) Method 10/14/23 26.79 73.2 161 Standing Scale 165.3 5-5 Standing 10/04/23 76.6 169 Standing Scale 10/03/23 77.8 171 Standing Scale Heights and Weights are the last 3 documented. Physical Exam Constitutional: In general patient is a healthy-appearing well-nourished well- developed elderly male no distress. Alert and oriented without any focal deficits. His left neck does demonstrate a high-pitched bruit. His heart is regular, his lungs are decreased throughout but clear. His abdomen is soft nontender with active bowel sounds in all 4 quadrants. Brachial and radial pulses are +2. Femoral pulses are +2. Lower extremity distal pulses are +1. He has brisk capillary fill no sign of distal ischemia. ASSESSMENT: _ PLAN: _ 1 ) _severe left ICA stenosis Patient continues to have severe left ICA stenosis, and would benefit from surgical intervention to reduce his risk of CVA. The options of carotid endarte rectomy and transcarotid artery revascularization were once again approached with the patient. These were discussed at length, including the risks benefits and alternatives of each. Patient elects to proceed with the left TCAR procedure. The risks of the procedure including but not limited to bleeding, infection, stroke, heart attack, , nerve damage, were discussed at length with the patient by myself at Dr. Cho's request. Patient expresses understanding and agreement to proceed. This will occur in the next few weeks at the patient's convenience. He is advised to remain on his aspirin, Plavix, and statin medications. Platelet function testing was completed back in July, and demonstrated adequate platelet inhibition while on Plavix. Patient is advised to call our office with any other questions or concerns. He is agreeable to this plan. Thank you for letting us participate in the care of this patient. Signature Line Electronic Signature on File Electronically Reviewed/Signed by: Fabi Navarro PA-C Author Signature Dt/Tm:12/24/2023 01:21 PM [facility] [place] [address] [place] [address], [place] [id number] LM Addendum by ROCHELLE Navarro Lynn on December 24, 2023 13:22 EST (Verified) I have personally spent_28__ minutes performing [id number] and [id number] erin activities on this date of service.Time does not include separately reported services. Activities Include: _x_ review of the medical record _x_ obtaining a history _x_ physical exam/evaluation x__ review labs x_ review radiology reports x__ counseling/educating patient/family/caregiver __ discussion/referral to other healthcare professional x__ documenting care in the medical record __ independent interpretation of results _x_ communication of results to patient/family/caregiver _x_ coordination of care Signature Line Electronic Signature on File CC: ROCHELLE Schroeder [address] [id number] * CC: Jose Espinoza DO [address] [place] [id number] CC: Bertrand Amaral MD [address] [address] * Electronically Reviewed/Signed by: Fabi Navarro PA-C Author Signature Dt/Tm:12/24/2023 01:22 PM [facility] [place] [place] [address] LM Result Type: HVI Outpt Note Date of Service: December 24, 2023 12:59 EST Authorization Status: Modified Author or Import Date: ROCHELLE Navarro Lynn on December 24, 2023 13:21 EST Verified By: ROCHELLE Navarro Lynn on December 24, 2023 13:21 EST Encounter info: [id number], [place] [address], Clinic, 12/24/2023 - 12/24/2023 Allergies Allergy/AdvReac Type Severity Reaction Status Date / Time No Known Allergies Allergy Verified 12/28/23 09:34 Home Medications Medication Instructions Recorded Confirmed Type omeprazole 20 mg capsule,delayed 20 mg PO DAILY PRN Acid Reflux 04/30/20 12/28/23 History release tamsulosin 0.4 mg capsule 0.4 mg PO QAM 04/30/20 12/28/23 History albuterol sulfate 90 mcg/actuation 1 inh inhalation QID PRN sob 05/29/20 12/28/23 History aerosol inhaler (Ventolin HFA) aspirin 81 mg tablet,delayed 81 mg PO QAM 08/13/23 12/28/23 History release clopidogrel 75 mg tablet 75 mg PO QAM 08/13/23 12/28/23 History cyanocobalamin (vitamin B-12) 1,000 mcg PO QPM 08/24/23 12/28/23 History 1,000 mcg tablet (Vitamin B-12) metformin 500 mg tablet,extended 500 mg PO BID 08/24/23 12/28/23 History release 24hr (osmotic) mirtazapine 30 mg tablet 30 mg PO HS 08/24/23 12/28/23 History atorvastatin 40 mg tablet 40 mg PO QPM 12/28/23 12/28/23 History cholecalciferol (vitamin D3) 25 25 mcg PO QAM 12/28/23 12/28/23 History mcg (1,000 unit) capsule (Vitamin D3) empagliflozin 25 mg tablet 12.5 mg PO QAM 12/28/23 12/28/23 History guaifenesin 600 mg tablet, 600 mg PO BID 12/28/23 12/28/23 History extended release 12 hr (Mucinex) insulin glargine 100 unit/mL 30 unit subcut QAM 12/28/23 12/28/23 History subcutaneous solution (Lantus U-100 Insulin) loratadine 10 mg tablet (Claritin) 10 mg PO QAM 12/28/23 12/28/23 History lorazepam 1 mg tablet 1 mg PO DAILY PRN Anxiety 12/28/23 12/28/23 History metoprolol tartrate 25 mg tablet 25 mg PO BID 12/28/23 12/28/23 History tramadol 50 mg tablet 50 mg PO Q8H PRN Pain 12/28/23 12/28/23 History Past Med/Surg History Medical History Aortic aneurysm [facility] monitoring Echo (08/16/23): Dilated aortic root (4.1 cm) and ascending aorta (4.3 cm) BPH (benign prostatic hyperplasia) CAD (coronary artery disease) CABG x3 (08/2023) Follows with Dr. Espinoza Carotid artery stenosis Neck CTA 08/05/23: Extensive atherosclerotic disease resulting in 90% right coronal and carotid artery stenosis and 80% left common carotid artery stenosis. Chronic obstructive pulmonary disease Diabetes mellitus, type 2 Gastroparesis GERD (gastroesophageal reflux disease) Hearing deficit Hyperlipidemia Hypertension Myocardial Infarction 08/2023 Surgical History History of cardiac cath 08/2023 at [facility] prior to CABG History of coronary artery bypass graft 09/29/23> CABG x3 ([facility]) Hx of cholecystectomy Hx of colonoscopy Hx of esophagogastroduodenoscopy Hx of tonsillectomy Family History Mother Diabetes Sister Diabetes Other No family history of adverse response to anesthesia Social History Smoking Status: Former smoker Tobacco Type: Cigarettes Smoking End Date: 2004?; Second Hand Exposure: No; Do You Dip or Chew Tobacco: No; Hx Alcohol Use: No Preferred Language: Moldovan Communication Ability: Effective Review Manager Required: No Beliefs That Will Affect Care: None Current Living Situation: Spouse Feels Safe at Home: Yes Safety Concerns: Feels Safe At This Time Assistive Devices: Glasses and Hearing Aid - Bilateral
--- OUTSIDE RECORDS SUMMARY | 2024-01-05 08:54 | External Medical Summary | Continuity of Care Document ---
Author Name Unknown Organization [facility] [address] [facility] Address [address] [place], [place] [id number] Care Team Providers Care Craft Center Director Name Role Phone Verna Cosme Primary Care Physician [phone] [facility] [phone] Date(s): 12/30/23 - 12/30/23 [facility] [address], [address] [place] [address] [phone] Encounter Diagnosis Coronary artery disease involving [place] heart(Discharge Diagnosis) - 12/30/23 Stenosis of left internal carotid artery(Discharge Diagnosis) - 12/30/23 Hypertension(Discharge Diagnosis) - 12/30/23 Diabetes mellitus(Discharge Diagnosis) - 12/30/23 S/P CABG x 3(Discharge Diagnosis) - 12/30/23 Hyperlipidemia(Discharge Diagnosis) - 12/30/23 Discharge Disposition: Home or Self Care Attending Physician: DO Espinoza Jason D Allergies, Adverse Reactions, Alerts No Known Allergies Assessment and Plan Extracted from: Title:Cardiology Office Visit Note Author:DO Espinoza Jason D Date:12/30/23 1.Coronary artery disease involving [place] heart 2.S/P CABG x 3 3.Diabetes mellitus 4.Hyperlipidemia 5.Hypertension 6.Stenosis of left internal carotid artery From my standpoint he is doing remarkably well. We discussed the importance of medical therapy with regards to reducing his risk of cardiovascular events long-term. We discussed that the medication is designed to treat his systemic vascular disease. At this point he is having some orthostatic symptoms and no swelling in his legs. I discussed with him he should stop his furosemide and has potassium chloride. If he still has orthostatic symptoms I would use reduce his lisinopril to 5 mg daily. He will need a lipid profile and a complete metabolic profile in 3 months when he returns. He will need an echocardiogram in 3 months to reassess his LV function postoperatively. Once his TCAR is completed and he is recovered we discussed he should consider cardiac rehab. We also reviewed that he should take his aspirin with food in order to avoid any GI issues. Otherwise he is doing well. Will see him back in 3 months. 20 minutes was spent reviewing his presurgical cardiac catheterization, hospitalization for bypass surgery, diagnostic testing pre and post surgery and his most recent labs at [facility]. Immunizations Not Given Vaccine Date Status Refusal Reason influenza virus vaccine, inactivated 09/29/23 Not Given Patient Refuses Medications acetaminophen Start: 10/04/23 5:56:00 EST, 650 mg =, PO, q6h, PRN: fever/mild pain (1-3) Start Date: 10/04/23 Status: Ordered albuterol CFC free 90 mcg/inh MDI Start: 07/28/23 13:19:00 EDT, 2 puff, inhaled, qid, PRN: as needed for wheezing Start Date: 07/28/23 Status: Ordered albuterol-ipratropium 2.5 mg-0.5 mg/3 mL inhalation solution Start: 07/28/23 13:20:00 EDT, 3 mL, inhaled, qid, PRN: as needed for shortness of breath or wheezing Start Date: 07/28/23 Status: Ordered aspirin 81 mg oral delayed release tablet Start: 08/13/23 10:23:00 EDT, 1 tab, PO, Daily, Disp# 90 tab, Refills: 3, Pharmacy: [facility] Start Date: 08/13/23 Status: Ordered atorvastatin 40 mg oral tablet Start: 09/09/23 12:37:00 EDT, 1 tab, PO, Daily Start Date: 09/09/23 Status: Ordered baclofen 10 mg oral tablet Start: 07/28/23 13:20:00 EDT, 1 tab, PO, tid, PRN: spasms Start Date: 07/28/23 Status: Ordered carbamide peroxide 6.5% otic solution Start: 07/28/23 13:21:00 EDT, 10 drop, right ear, tid Start Date: 07/28/23 Status: Ordered cholecalciferol 25 mcg (1000 intl units) oral capsule Start: 07/28/23 13:21:00 EDT, 1 cap, PO, Daily Start Date: 07/28/23 Status: Ordered cyanocobalamin 1000 mcg oral tablet Start: 07/28/23 13:22:00 EDT, See Instructions, 2 tab PO Daily Start Date: 07/28/23 Status: Ordered docusate sodium 100 mg oral capsule Start: 07/28/23 13:22:00 EDT, 2 cap, PO, Daily, PRN: as needed for constipation Start Date: 07/28/23 Status: Ordered empagliflozin 25 mg oral tablet Start: 07/28/23 13:23:00 EDT, 1 tab, PO, qAM Start Date: 07/28/23 Status: Ordered guaiFENesin 600 mg oral tablet, extended release Start: 10/04/23 5:56:00 EST, 1 tab, PO, bid Start Date: 10/04/23 Status: Ordered insulin lispro Start: 10/04/23 5:56:00 EST, SSI, subQ, ac and hs Start Date: 10/04/23 Status: Ordered lisinopril 10 mg oral tablet Start: 10/14/23 14:40:00 EST, 1 tab, PO, Daily Start Date: 10/14/23 Status: Ordered loratadine 10 mg oral capsule Start: 07/28/23 13:25:00 EDT, 1 cap, PO, Daily Start Date: 07/28/23 Status: Ordered LORazepam 1 mg oral tablet Start: 07/28/23 13:25:00 EDT, 1 tab, PO, tid, PRN: as needed for anxiety Start Date: 07/28/23 Status: Ordered magnesium oxide 420 mg oral tablet Start: 07/28/23 13:26:00 EDT, 1 tab, PO, Daily Start Date: 07/28/23 Status: Ordered metFORMIN 500 mg oral tablet Start: 07/28/23 13:28:00 EDT, 1 tab, PO, bid Start Date: 07/28/23 Status: Ordered metoprolol tartrate 25 mg oral tablet Start: 10/04/23 5:55:00 EST, 1 tab, PO, bid Start Date: 10/04/23 Status: Ordered MiraLax Start: 10/04/23 5:56:00 EST, 17 g =, PO, Daily Start Date: 10/04/23 Status: Ordered mirtazapine 30 mg oral tablet Start: 07/28/23 13:29:00 EDT, 1 tab, PO, qhs Start Date: 07/28/23 Status: Ordered omeprazole 20 mg oral delayed release capsule Start: 07/28/23 13:29:00 EDT, 1 cap, PO, Daily Start Date: 07/28/23 Status: Ordered Plavix 75 mg oral tablet Start: 08/13/23 10:24:00 EDT, 1 tab, PO, Daily, Disp# 90 tab, Refills: 3, Pharmacy: [facility] Start Date: 08/13/23 Status: Ordered pregabalin 75 mg oral capsule Start: 10/04/23 5:56:00 EST, 1 cap, PO, bid Start Date: 10/04/23 Status: Ordered senna 8.6 mg oral tablet Start: 07/28/23 13:30:00 EDT, 1 tab, PO, bid, PRN: as needed for constipation Start Date: 07/28/23 Status: Ordered tamsulosin 0.4 mg oral capsule Start: 07/28/23 13:30:00 EDT, 1 cap, PO, Daily Start Date: 07/28/23 Status: Ordered traMADol 50 mg oral tablet Start: 10/04/23 5:56:00 EST, 1 tab, PO, q6h, PRN: pain - severe (7-10) Start Date: 10/04/23 Status: Ordered Mental Status 12/30/23 Barriers to Learning one year None evide nt Mandatory Health Literacy Documentation Yes Health Literacy Communication Barriers N ever Primary Language Israeli Problem List Condition Confirmation Course Effective Dates Status H ealth Status Informant Benign prostate hyperplasia Confirmed Active Chronic obstructive pulmonary disease Confirmed Active Coronary artery disease involving [place] heart Confirmed Active Diabetes mellitus Confirmed Active Mixed dyslipidemia Confirmed Active Former smoker Confirmed Active Hypertension with heart disease Confirmed Active S/P CABG x 3 Confirmed Active Hypertension Confirmed Active Hyperlipidemia Confirmed Active Stenosis of left internal carotid artery Confirmed Active Diagnosis Diagnosis Type Effective Dates Health Status Clinical Service Informant Hypertension Discharge Diagnosis 12/30/23 Diabetes mellitus Discharge Diagnosis 12/30/23 Coronary artery disease involving [place] heart Discharge Diagnosis 12/30/23 S/P CABG x 3 Discharge Diagnosis 12/30/23 Hyperlipidemia Discharge Diagnosis 12/30/23 Stenosis of left internal carotid artery Discharge Diagnosis 12/30/23 Procedures Procedure Date Related Diagnosis Body Site Status Tonsillectomy 1980 Completed Cholecystectomy Completed Colonoscopy-multiple and edoscopy Completed Vital Signs Most recent to oldest [Reference Range]: 1 Patient Weight 73 kg (12/30/23 12:58 PM) Heart Rate 85 bpm (12/30/23 12:58 PM) Blood Pressure 94/50mmHg (12/30/23 12:58 PM) BP Location # 1 Left Arm (12/30/23 12:58 PM) Social History Social History Type Response Smoking Status Former Smoker, quit > 1 yr Sex Male Radiology * Contributor_system, MUSE01: VERIFY, PERFORM Event Display: EKG Authored Date: Please click on link to see image. Cardiology Outpatient Note * DO Espnioza Jason D: MODIFY, PERFORM Event Display: Cardiology Outpt Note Authored Date: Primary Care Provider ROCHELLE Cosme, Verna Loepz Chief Complaint est care CABG> History of Present Illness He is doing quite well 3 months after bypass surgery. His anginal symptoms that he had with minimal amounts of activity before surgery have completely resolved. He climb a flight of stairs without any issues. He is having some orthostatic symptoms. He had no falls or syncopal episodes. [place] any palpitations or fluttering. He denies any TIA or strokelike symptoms. He denies any clumsiness in his hands. He had no bleeding or bruising on aspirin and Plavix. He is undergoing a TCAR next week by Dr. Cho. He is tolerating his current medical regimen without any side effects. He denies any heart failure symptoms. His sleep patterns are back to normal and his appetite is close to normal. Review of Systems PMHX: 1. Coronary artery disease -- Cath 07/2023 A. Multivessel coronary artery disease 40% diffuse left main CAD (severe by IVUS CSA 5.0 mm, borderline by FFR 0.83). 99% heavily calcified proximal RCA with bkkz-cl-miwvy collaterals 60% mid small circumflex 1B. Coronary artery bypass grafting times 3(GONZALEZ-LAD, SVG-PDA, SVG-OM) 1C. Low nml LV fxn 09/2023 at [facility] post op 1D. B/L Carotid Dz 80% on right and 90% on left 2. HTN 3. HLD 4. ODALIS 5. DM 6. BPH 7. COPD 8. No evidence of AAA by CT abd at [facility] 11/2023 with severe celiac and SMAstenosis vs occlusion Physical Exam Vitals & Measurements HR:85(Monitored) BP:94/50 SpO2:98% WT:73.000kg(Dosing) WT:73kg Patient is awake alert and oriented x3and in no acute distress HEENT:He has bilateral carotid bruits louder on the left compared to the right; I did not palpatehis carotids due to his known severe bilateral stenosis LUNGS:Clear to auscultation bilaterally no rales rhonchi or wheezing HEART:Regular rate and rhythmno appreciable murmurs rubs or gallops ABDOMEN:Soft nontender nondistended positive bowel sounds EXTREMITIES:No evidence of clubbing cyanosis or edema PSYCHIATRIC:Patient's affect appeared appropriate Skin: His median sternotomy incision is well-healed as well as his chest tube sites EKG today sinus rhythm right bundle branch block possible inferior posterior MO age-indeterminate left atrial abnormality Compared to his prior EKG postoperatively there is no change His echocardiogram from [facility] postoperatively was reviewed Assessment/Plan 1.Coronary artery disease involving [place] heart 2.S/P CABG x 3 3.Diabetes mellitus 4.Hyperlipidemia 5.Hypertension 6.Stenosis of left internal carotid artery From my standpoint he is doing remarkably well. We discussed the importance of medical therapy with regards to reducing his risk of cardiovascular events long- term. We discussed that the medication is designed to treat his systemic vascular disease. At this point he is having some orthostatic symptoms and no swelling in his legs. I discussed with him he should stop his furosemide and has potassium chloride. If he still has orthostatic symptoms I would use reduce his lisinopril to 5 mg daily. He will need a lipid profile and a complete metabolic profile in 3 months when he returns. He will need an echocardiogram in 3 months to reassess his LV function postoperatively. Once his TCAR is completed and he is recovered we discussed he should consider cardiac rehab. We also reviewed that he should take his aspirin with food in order to avoid any GI issues. Otherwise he is doing well. Will see him back in 3 months. 20 minutes was spent reviewing his presurgical cardiac catheterization, hospitalization for bypass surgery, diagnostic testing pre and post surgery and his most recent labs at [facility]. Problem List/Past Medical History Ongoing Benign prostate hyperplasia Chronic obstructive pulmonary disease Coronary artery disease involving [place] heart Diabetes mellitus Former smoker Hyperlipidemia Hypertension Hypertension with heart disease Mixed dyslipidemia S/P CABG x 3 Stenosis of left internal carotid artery Procedure/Surgical History Tonsillectomy (1980)Colonoscopy-multiple and edoscopyCholecystectomy Medications acetaminophen, 650 mg= 2 tab, PO, q6h, PRN albuterol(albuterol CFC free 90 mcg/inh MDI), 2 puff, inhaled, qid, PRN albuterol-ipratropium(albuterol-ipratropium 2.5 mg-0.5 mg/3 mL inhalation solution), 3 mL, inhaled,qid, PRN aspirin(aspirin 81 mg oral delayed release tablet), 81 mg= 1 tab, PO, Daily, 3 refills atorvastatin(atorvastatin 40 mg oral tablet), 40 mg= 1 tab, PO, Daily baclofen(baclofen 10 mg oral tablet), 10 mg= 1 tab, PO, tid, PRN carbamide peroxide otic(carbamide peroxide 6.5% otic solution), 10 drop, right ear, tid cholecalciferol(cholecalciferol 25 mcg (1000 intl units) oral capsule), 25 mcg= 1 cap, PO, Daily clopidogrel(Plavix 75 mg oral tablet), 75 mg= 1 tab, PO, Daily, 3 refills cyanocobalamin(cyanocobalamin 1000 mcg oral tablet), See Instructions docusate(docusate sodium 100 mg oral capsule), 200 mg= 2 cap, PO, Daily, PRN empagliflozin(empagliflozin 25 mg oral tablet), 25 mg= 1 tab, PO, qAM furosemide(Lasix 20 mg oral tablet), 20 mg= 1 tab, PO, Daily guaiFENesin(guaiFENesin 600 mg oral tablet, extended release), 600 mg= 1 tab, PO, bid insulin lispro, SSI, subQ, ac and hs lisinopril(lisinopril 10 mg oral tablet), 10 mg= 1 tab, PO, Daily loratadine(loratadine 10 mg oral capsule), 10 mg= 1 cap, PO, Daily LORazepam(LORazepam 1 mg oral tablet), 1 mg= 1 tab, PO, tid, PRN magnesium oxide(magnesium oxide 420 mg oral tablet), 420 mg= 1 tab, PO, Daily metFORMIN(metFORMIN 500 mg oral tablet), 500 mg= 1 tab, PO, bid metoprolol(metoprolol tartrate 25 mg oral tablet), 25 mg= 1 tab, PO, bid mirtazapine(mirtazapine 30 mg oral tablet), 30 mg= 1 tab, PO, qhs omeprazole(omeprazole 20 mg oral delayed release capsule), 20 mg= 1 cap, PO, Daily polyethylene glycol 3350(MiraLax), 17 g, PO, Daily potassium chloride, 20 mEq= 1 tab, PO, Daily pregabalin(pregabalin 75 mg oral capsule), 75 mg= 1 cap, PO, bid senna(senna 8.6 mg oral tablet), 8.6 mg= 1 tab, PO, bid, PRN tamSULOsin(tamsulosin 0.4 mg oral capsule), 0.4 mg= 1 cap, PO, Daily traMADol(traMADol 50 mg oral tablet), 50 mg= 1 tab, PO, q6h, PRN Allergies NKA Social History Smoking Status Former Smoker, quit > 1 yr Electronic Signature on File CC: Verna Cosme PA-C [address] [place] [address] * Electronically Reviewed/Signed by: Jose Espinoza DO Author Signature Dt/Tm:12/30/2023 01:46 PM House Carpentersign installer [facility] [address] [address] Electronically Reviewed/Signed by: Jose Espinoza DO Cosigner Signature Dt/Tm: 12/30/2023 01:55 PM House Carpentersign installer [facility] [address] [address] JDF Patient Care team information Care Team Personnel Name: Leandro Bustillos Amy E Position: Pharmacist Member Role: Pharmacy - Lifetime Address: Address: [address] [address] [place] Name: ROCHELLE Cosme Lindsay Marie Position: Referring Member Role: Primary Care Provider Address: Address: [address] [place] [id number] [place] Name: ROCHELLE Navarro Lynn Position: Physician Service Desk Manager Exempt - Vasc Surg Member Role: Lifetime Relationship Address: Address: [address] [place] [address], [place] [address] [place] Care Team Related Persons Name: ENZO LACKEY Name: AGATA LACKEY
[2024-01-05] MEDS: SODIUM CHLORIDE 0.9% 1,000 ML IV SCH (08:57)
[2024-01-05 09:01] LABS: BUN Creatinine Ratio 21.7 (10-20); Calcium 9.5 mg/dl (8.6-10.3); Creatinine Clr Calc Pharmacy 84.8 ml/min; Est GFR (African American) 108.4 ml/min; Est GFR (Non-African American) 93.5 ml/min; Potassium 3.9 mmol/L (3.5-5.1)
[2024-01-05] MEDS: ALBUT/IPRATROP 3MG/0.5MG NEB 3 ML VIAL ONE (09:10)
[2024-01-05] MEDS: ALBUT/IPRATROP 3MG/0.5MG NEB 3 ML VIAL NEB STA (09:10)
--- NOTE | 2024-01-05 09:12 | History & Physical Bridge Note ---
Date of Service January 05, 2024 History & Physical Bridge Note I have examined the patient, reviewed the History & Physical and in the interval since the performance of the History & Physical I have noted the following changes of clinical significance: no changes noted
[2024-01-05] MEDS ORDERED: ONDANSETRON INJ 2 MG/ML 2 ML VIAL IV PRN ×2 (09:33→16:03)
[2024-01-05] MEDS ORDERED: PHENYLEPHRINE/NSS 25 MG/250 ML BAG IV PRN (09:33)
[2024-01-05] MEDS ORDERED: ATROPINE SULFATE 0.1 MG/ML 10ML SYR IV PRN (09:33)
[2024-01-05] MEDS ORDERED: ePHEDrine sulfate 50 MG/ML AMP IV PRN (09:33)
[2024-01-05] MEDS ORDERED: HYDROmorphone INJ 1 MG/ML SYRINGE IV PRN (09:33)
[2024-01-05] MEDS ORDERED: MIDAZOLAM HCL 1 MG/ML 2ML VIAL ONE (09:34)
[2024-01-05] MEDS ORDERED: LIDOCAINE 2% 2 ML VIAL/AMP(20MG/ML) INFIL ONE (09:34)
[2024-01-05] MEDS ORDERED: PROPOFOL IV EMULSION 10 MG/ML 20 ML VIAL IV ONE (09:34)
[2024-01-05] MEDS ORDERED: fentaNYL citrate PF 100 MCG/2 ML VIAL ONE (09:35)
[2024-01-05] MEDS ORDERED: ROCURONIUM BROMIDE 10 MG/ML 5 ML VIAL IV ONE (10:13)
[2024-01-05] MEDS ORDERED: PHENYLEPHRINE HCL 25 MG/250 ML NSS IV ONE (10:15)
[2024-01-05] MEDS: CEFAZOLIN 2,000 MG/15 ML SYR IV SCH (11:43)
[2024-01-05] MEDS ORDERED: PHENYLEPHRINE 100MCG/ML 10ML SYR IV ONE (12:38)
[2024-01-05] MEDS ORDERED: ePHEDrine sulfate 50 MG/5 ML SYR ONE (12:38)
[2024-01-05] MEDS ORDERED: SUCCINYLCHOLINE CHLORIDE 20 MG/ML 10 ML VIAL IV ONE (12:38)
[2024-01-05] MEDS ORDERED: HEPARIN SOD (PORCINE) 1000 UNIT/ML ONE (12:39)
[2024-01-05] MEDS ORDERED: ONDANSETRON INJ 2 MG/ML 2 ML VIAL ONE (12:39)
[2024-01-05] MEDS: BUPIVACAINE/EPINEPHRINE 0.5% MPF 1:200,000 30 ML VIAL ONE (12:55)
[2024-01-05] MEDS: ceFAZolin 330 MG/ML 1 GM VIAL ONE (12:55)
[2024-01-05] MEDS: VISIPAQUE IV ONE (12:55)
[2024-01-05] MEDS ORDERED: LABETALOL HCL IV 5 MG/ML 20ML IV ONE ×2 (13:00→13:51)
[2024-01-05] MEDS ORDERED: PROTAMINE SULFATE 10 MG/ML 5 ML VIAL IV ONE (13:03)
[2024-01-05] MEDS ORDERED: SUGAMMADEX SODIUM 200 MG/2 ML VIAL IV ONE (13:05)
[2024-01-05] MEDS: THROMBIN FOR SOLN 20000 UNIT KIT ONE (13:18)
[2024-01-05] MEDS: GELATIN SPONGE SZ 100 ONE (13:18)
--- NOTE | 2024-01-05 13:28 | Procedure Note ---
Angiogram Post Procedure Fluoroscopy Time (minutes): 6.5 Radiation (mGy): 52 Contrast: 12 Post Operative Report Pre & Post Diagnosis Operation Date: 01/05/24 10:30 Pre-Op Diagnosis: Left Carotid Artery Stenosis Post-Op Diagnosis: Left Carotid Artery Stenosis I identified the patient and participated in the time-out.: Yes Procedure Operation Date: 01/05/24 10:30 Actual Procedures p Left Transcarotid Artery Revascularization(Left),ultrasound localization of right femoral vein- Sacha Cho MD Surgeon Sacha Cho MD Billiard Table Repairer none Estimated Blood Loss 30 Findings Consistent with Post-Op Diagnosis Specimens none Anesthesia Type General Complications none Disposition Accompanied Patient To Recovery: No Disposition: Recovery Room Indications This is a 73-year-old gentleman who has a severe stenosis of his left internal carotid artery. TCAR was recommended. He was planned to have it done in the fall but subsequently prior to surgery he was found to have severe coronary occlusive disease with a failed stress test. He underwent open heart surgery and revascularization. He is now admitted for his left TCAR. He was imaged with ultrasound in the office prior to this and found to have the left internal carotid artery patent but preocclusive. I have discussed the risks options and benefits of the procedure with the patient. The patient understands the risks options and benefits and agrees to the procedure. Description of Procedure The patient was taken to the operating room and placed in supine position. After general anesthesia was accomplished the groins and left side of the neck and chest were prepped and draped in a sterile manner. Timeout was performed and the patient was identified. A transverse incision was made just above the clavicle between the heads of the sternocleidomastoid. This was carried down to where the common carotid artery was identified. It was isolated and slung with an umbilical tape. It was given 8000units of heparin at that time. Ultrasound was then used to localize the right common femoral vein. The vein was patent and compressed easily. Under ultrasound guidance the right common femoral vein was punctured and the venous sheath was inserted. This was aspirated and flushed with heparinized saline. A 5-0 Prolene U-stitch was placed in the anterior surface of the common carotid artery. An ACT at that time was 282. Using micropuncture technique the common carotid artery was punctured. The micro sheath was inserted to 3 cm. Injection was then done showing the bifurcation. There was a significant preocclusive lesion seen at the origin of the internal carotid artery on the left side. We reinserted the micro wire and passed it into the external carotid. We then advanced the dilator and sheath into the external carotid. The dilater and sheath were removed. We then inserted the J-wire into the external carotid artery. The TCAR sheath was inserted. Once it was in place and held against the artery it was sutured to the chest wall and the incision edge. We then flushed the tubing appropriately. The venous return tubing was clamped onto the TCAR sheath. It was flushed through and then attached to the venous inflow sheath in the right groin. The sheath was checked for flow. We then inserted a Kumpe catheter backloaded on the wire. The wire was passed through the lesion into the petrous portion of the internal carotid. A 5.5 x 35mm balloon was then advanced to the lesion. The lesion was then predilated with the 5.5 mm balloon. The balloon was removed. We then inserted the 8 x 40 stent. This was deployed across the lesion without difficulty. The catheter was removed. Due to the calcifications and amount of narrowing the proximal portion of the stent was postdilated with a 6 x 25 balloon. The carotid was allowed to go 2 minutes with flow reversal. Completion angiogram was done at that time which showed no significant residual stenosis.The wire was removed we allowed 2 minutes of flow reversal to occur. A that point the common carotid artery was unclamped. The venous return tubing was clamped and removed from the TCAR sheath. The blood was allowed to flow back into the venous system. Once this was completed the sheath was pulled from the groin and pressure was applied. The TCAR sheath was then removed and the 5- 0 Prolene suture securely tied. Hemostasis was noted of the puncture site. Wound was irrigated with Ancef solution. Adequate hemostasis was obtained of the wound. Once this was noted the wound was closed in usual fashion using a 3- 0 Vicryl suture for the subcutaneous layer and a 4-0 subcuticular Vicryl suture for the skin edges. Dermabond was used for dressing.The patient left the operation room in satisfactory condition and tolerated the procedure well. All needle and sponge counts were correct at the end of the procedure. I attest to the content of the Intraoperative Record and any orders documented therein. Any exceptions are noted below.
[2024-01-05] MEDS: LABETALOL HCL IV 5 MG/ML 20ML IV PRN (14:11)
[2024-01-05] MEDS: fentaNYL citrate PF 100 MCG/2 ML VIAL IV PRN (14:26)
--- NOTE | 2024-01-05 14:39 | Anesthesiology Progress Note ---
Date of Service January 05, 2024 Anesthesia Post Procedure Vital Signs Vital Signs: Temp Pulse Resp BP BP Pulse Ox O2 Del Method 01/05/24 09:18 123/70 113/68 01/05/24 09:10 87 18 Room Air 01/05/24 08:59 Room Air 01/05/24 08:33 36.6 C 98 H 18 130/80 99 Room Air Transfer of Care Handoff Completed per policy Notes Mental Status: alert / awake / arousable Patient Amnestic to Procedure: Yes Nausea / Vomiting: adequately controlled Pain: adequately controlled Airway Patency, RR, SpO2: stable & adequate BP & HR: stable & adequate Hydration State: stable & adequate Anesthetic Complications: no major complications apparent and Pt Satisfied with anesthetic care
[2024-01-05] MEDS: hydrALAZINE HCL 20 MG/ML VIAL IV STA (14:57)
[2024-01-05] MEDS ORDERED: ALBUTEROL HFA 8 GM INHALER INH PRN (16:03)
[2024-01-05] MEDS ORDERED: LORazepam 1 MG TAB PO PRN (16:03)
[2024-01-05] MEDS: hydrALAZINE HCL 20 MG/ML VIAL ONE (16:05)
[2024-01-05] MEDS: LABETALOL HCL IV 5 MG/ML 20ML IV ONE (16:06)
[2024-01-05] MEDS ORDERED: PANTOprazole 40 MG TAB PO PRN (16:21)
[2024-01-05] MEDS: MoRPHine SULFATE 4 MG/ML 1 ML CARP\\VIAL IV PRN (16:23)
[2024-01-05] MEDS: LACTATED RINGER'S 1,000 ML IV SCH (16:24)
[2024-01-05] MEDS ORDERED: GLUCAGON FOR INJ 1 MG VIAL IM PRN (16:30)
[2024-01-05] MEDS ORDERED: CARBOHYDRATES FOR HYPOGLYCEMIA PO PRN (16:30)
[2024-01-05] MEDS ORDERED: GLUCOSE 40% GEL 15 GM TUBE PO PRN (16:30)
[2024-01-05] MEDS ORDERED: DEXTROSE 50% 50 ML SYRINGE IV PRN (16:30)
[2024-01-05] MEDS ORDERED: GLUCOSE 10 TAB/TUBE PO PRN (16:30)
[2024-01-05] MEDS: MoRPHine SULFATE 4 MG/ML 1 ML CARP\\VIAL ONE (16:54)
[2024-01-05] MEDS ORDERED: STAT IV Infusion **Titration per Protocol STA (17:55)
--- NOTE | 2024-01-05 18:04 | Critical Care Consultation ---
Date of Consultation January 05, 2024 Assessment & Plan (1) Left carotid stenosis: Status post left-sided TCAR. Pain control per vascular surgery recommendations. (2) Hypertension: Nicardipine gtt started to maintain SBP below 180. (3) Headache: Headache improving with morphine. Will have low threshold for CT head. (4) Diabetes mellitus, type 2: Accucheck q6h. Continue home meds. Plan CRITICAL CARE TIME - I have personally spent 39 minutes of critical care time in the direct management of this patient. This is a life/limb threatening event. This includes time spent evaluating patient, direct bedside care, chart review, placing orders, interpretation of diagnostic studies, discussion with consultants, patient, and family members, as well as other required patient management activities. This time is exclusive of all separately billable procedures, and teaching time and separate from and in addition to any other critical care service time. History of Present Illness Reason for Consultation: Status post TCAR Attending Physician: Sacha Cho MD History of Present Illness 73-year-old male with a past medical history of coronary artery disease status post bypass in 2022, diabetes mellitus, hypertension and TIA who presented for elective right TCAR today. Postoperatively in PACU he had elevated blood pressures required doses of labetalol and hydralazine. Currently in the ICU he is complaining of a headache and has received 4 mg of IV morphine. He also has some mild blurry vision. He has remained hypertensive based on his arterial line pressures and has systolics in the low 180s. He denies any chest pain or shortness of breath. He denies any weakness. He is currently laying in the supine position. Allergies Allergy/AdvReac Type Severity Reaction Status Date / Time No Known Allergies Allergy Verified 01/05/24 08:35 Home Medications Medication Instructions Recorded Confirmed Type omeprazole 20 mg capsule,delayed 20 mg PO DAILY PRN Acid Reflux 04/30/20 01/05/24 History release tamsulosin 0.4 mg capsule 0.4 mg PO QAM 04/30/20 01/05/24 History albuterol sulfate 90 mcg/actuation 1 inh inhalation QID PRN sob 05/29/20 01/05/24 History aerosol inhaler (Ventolin HFA) aspirin 81 mg tablet,delayed 81 mg PO QAM 08/13/23 01/05/24 History release clopidogrel 75 mg tablet 75 mg PO QAM 08/13/23 01/05/24 History cyanocobalamin (vitamin B-12) 1,000 mcg PO QPM 08/24/23 01/05/24 History 1,000 mcg tablet (Vitamin B-12) metformin 500 mg tablet,extended 500 mg PO BID 08/24/23 01/05/24 History release 24hr (osmotic) mirtazapine 30 mg tablet (Remeron) 30 mg PO HS 08/24/23 01/05/24 History atorvastatin 40 mg tablet 40 mg PO QPM 12/28/23 01/05/24 History cholecalciferol (vitamin D3) 25 25 mcg PO QAM 12/28/23 01/05/24 History mcg (1,000 unit) capsule (Vitamin D3) empagliflozin 25 mg tablet 12.5 mg PO QAM 12/28/23 01/05/24 History (Jardiance) guaifenesin 600 mg tablet, 600 mg PO BID 12/28/23 01/05/24 History extended release 12 hr (Mucinex) insulin glargine 100 unit/mL 30 unit subcut QAM 12/28/23 01/05/24 History subcutaneous solution (Lantus U-100 Insulin) loratadine 10 mg tablet (Claritin) 10 mg PO QAM 12/28/23 01/05/24 History lorazepam 1 mg tablet 1 mg PO DAILY PRN Anxiety 12/28/23 01/05/24 History metoprolol tartrate 25 mg tablet 25 mg PO BID 12/28/23 01/05/24 History tramadol 50 mg tablet 50 mg PO Q8H PRN Pain 12/28/23 01/05/24 History Patient History Medical History (Updated 01/05/24 @ 18:14 by Calixto Mon MD) Left carotid stenosis Headache Carotid stenosis, right Hearing deficit Myocardial Infarction 08/2023 CAD (coronary artery disease) CABG x3 (08/2023) Follows with Dr. Espinoza Carotid artery stenosis Neck CTA 08/05/23: Extensive atherosclerotic disease resulting in 90% right coronal and carotid artery stenosis and 80% left common carotid artery stenosis. Aortic aneurysm [facility] monitoring Echo (08/16/23): Dilated aortic root (4.1 cm) and ascending aorta (4.3 cm) BPH (benign prostatic hyperplasia) Gastroparesis GERD (gastroesophageal reflux disease) Diabetes mellitus, type 2 Hyperlipidemia Hypertension Chronic obstructive pulmonary disease Surgical History History of cardiac cath 08/2023 at [facility] prior to CABG History of coronary artery bypass graft 09/29/23> CABG x3 [place] [place] Hx of esophagogastroduodenoscopy Hx of colonoscopy Hx of tonsillectomy Hx of cholecystectomy Family History Mother Diabetes Sister Diabetes Other No family history of adverse response to anesthesia Social History Smoking Status: Former smoker Tobacco Type: Cigarettes Smoking End Date: 2004?; Second Hand Exposure: No; Do You Dip or Chew Tobacco: No; Hx Alcohol Use: No Preferred Language: Arabic Communication Ability: Effective Chief Executive Officer Required: No Beliefs That Will Affect Care: None Current Living Situation: Spouse Feels Safe at Home: Yes Safety Concerns: Feels Safe At This Time Assistive Devices: Glasses and Hearing Aid - Bilateral Review of Systems Review of Systems: All systems reviewed & are unremarkable except as noted in HPI & below Physical Exam Physical Exam: Constitutional: Patient appears to be of their stated age. Patient is in no apparent distress. Patient is well-developed. Eyes: Pupils are equal round and reactive to light. Conjunctivae are normal. Anicteric sclera. Ears nose, mouth and throat: Mallampati class 2. Normal posterior oropharynx. Uvula is midline. Neck: Trachea is midline. Visual inspection is normal. Respiratory: Clear to auscultation bilaterally. No use of accessory muscles. No significant clubbing noted. Cardiovascular: Regular rate and rhythm. No murmurs. No edema. Gastrointestinal: Normal bowel sounds, soft, nontender and nondistended. No hepatosplenomegaly noted. Musculoskeletal: No cyanosis. Patient is able to move all extremities. Strength is 5 out of 5 in the upper and lower extremities. Left-sided TCAR site noted with some mild bruising. Adequate hemostasis. Right femoral groin puncture site with pressure bandage placed. No bleeding. Peripheral pulses intact. Skin: No rashes, warm dry and intact. Neurologic: No obvious focal neurological deficits seen. Psychiatric: Alert and oriented x3 with a euthymic affect. Results & Data Results & Data Vital Signs (Past 12 Hours) Vital Signs Temp Pulse Pulse Resp BP BP BP 01/05/24 17:45 80 14 01/05/24 17:30 79 14 01/05/24 17:12 79 12 01/05/24 17:12 105/56 L 01/05/24 17:00 79 15 01/05/24 16:57 96/53 L 01/05/24 16:57 81 17 01/05/24 16:49 36.4 C L 01/05/24 16:45 75 14 01/05/24 16:30 69 13 01/05/24 16:29 68 15 01/05/24 16:15 71 14 01/05/24 16:13 94/49 L 01/05/24 16:13 73 18 01/05/24 16:09 72 16 01/05/24 16:07 36.4 C L 74 16 137/37 L 01/05/24 15:45 72 14 01/05/24 15:30 75 12 150/43 H 01/05/24 15:20 71 13 165/54 H 01/05/24 15:10 70 19 159/48 H 01/05/24 15:00 36.5 C 72 13 156/50 H 01/05/24 14:50 70 17 161/56 H 01/05/24 14:47 72 162/55 H 01/05/24 14:40 72 17 162/56 H 01/05/24 14:30 68 20 151/51 H 01/05/24 14:20 70 14 156/53 H 01/05/24 14:10 72 14 157/58 H 01/05/24 14:00 72 13 164/54 H 01/05/24 13:50 70 17 161/56 H 01/05/24 13:40 72 19 162/55 H 01/05/24 13:33 36 C L 77 17 01/05/24 09:18 123/70 01/05/24 09:10 87 18 01/05/24 08:59 01/05/24 08:33 36.6 C 98 H 18 BP Pulse Ox O2 Del Method O2 Flow Rate 01/05/24 17:45 95 01/05/24 17:30 96 01/05/24 17:12 96 01/05/24 17:12 01/05/24 17:00 96 01/05/24 16:57 01/05/24 16:57 95 01/05/24 16:49 01/05/24 16:45 95 01/05/24 16:30 96 01/05/24 16:29 96 01/05/24 16:15 96 Room Air 01/05/24 16:13 01/05/24 16:13 96 01/05/24 16:09 96 01/05/24 16:07 104/54 L 96 Room Air 01/05/24 15:45 132/67 96 Room Air 01/05/24 15:30 127/66 97 Room Air 01/05/24 15:20 140/76 96 Room Air 01/05/24 15:10 133/73 96 Room Air 01/05/24 15:00 132/69 95 Room Air 01/05/24 14:50 126/71 92 Room Air 01/05/24 14:47 01/05/24 14:40 132/77 92 Room Air 01/05/24 14:30 129/67 94 Room Air 01/05/24 14:20 134/73 93 Room Air 01/05/24 14:10 132/69 95 Room Air 01/05/24 14:00 137/65 95 Room Air 01/05/24 13:50 126/71 95 Oxymask 2 01/05/24 13:40 132/77 95 Oxymask 3 01/05/24 13:33 122/72 96 Oxymask 6 01/05/24 09:18 113/68 01/05/24 09:10 Room Air 01/05/24 08:59 Room Air 01/05/24 08:33 130/80 99 Room Air Coding Level of Care Code 92058 CRITICAL CARE 1ST 30-74M Diagnoses Left carotid stenosis I65.22 Hypertension I10 Headache R51.9 Diabetes mellitus, type 2 E11.9
[2024-01-05] MEDS: niCARdipine 25 MG in SODIUM CHLORIDE 0.9% 240 ML IV SCH (18:16)
[2024-01-05] MEDS: traMADol HCL 50 MG TABLET PO PRN (19:29)
[2024-01-05] MEDS: guaiFENesin 600 MG TABCR PO SCH (20:33)
[2024-01-05] MEDS: ceFAZolin 2000MG 2,000 MG/15 ML SYR IV SCH (20:33)
[2024-01-05] MEDS: ATORVASTATIN 40 MG TAB PO SCH (20:34)
[2024-01-05] MEDS: MIRTAZAPINE TAB 15 MG TAB PO SCH (20:34)
[2024-01-05] MEDS: CYANOCOBALAMIN (B-12) 500 MCG TABLET PO SCH (20:34)
[2024-01-05] MEDS: METOPROLOL TARTRATE 25 MG TAB PO SCH (20:35)
[2024-01-06] MEDS: TAMSULOSIN HCL 0.4 MG CAP PO SCH (08:25)
[2024-01-06] MEDS: CLOPIDOGREL BISULFATE 75 MG TAB PO SCH (08:25)
[2024-01-06] MEDS: CHOLECALCIFEROL 25 MCG (1000 UNITS) TAB PO SCH (08:25)
[2024-01-06] MEDS: LORATADINE 10 MG TAB PO SCH (08:25)
[2024-01-06] MEDS: ASPIRIN 81 MG ECTAB PO SCH (08:26)
[2024-01-06] MEDS: LANTUS PER UNIT CHARGE SQ SCH (08:31)
[2024-01-06] MEDS: METOPROLOL TARTRATE 25 MG TAB PO STA (10:00)
[2024-01-06] MEDS: EMPAGLIFLOZIN 25 MG TAB PO SCH (10:00)
--- NOTE | 2024-01-06 10:08 | Critical Care Progress Note ---
Date of Service January 06, 2024 Assessment & Plan (1) Left carotid stenosis: Plan: Status post left-sided TCAR. Discussed with vascular surgery PA. Possible discharge later today. (2) Hypertension: Plan: Nicardipine weaned off. Continue metoprolol 50 mg twice daily. May uptitrate BP meds depending on trying throughout the day. Will follow noninvasive BPs (3) Headache: Plan: Resolved. (4) Diabetes mellitus, type 2: Plan: Accucheck q6h. Continue home meds. No current issues. Plan Critical care services to sign off at this time. Please call with questions. Admission and Anticipated Discharge Date Admission Date: January 05, 2024 Subjective Patient eager to go home. She has been weaned off nicardipine. No acute events overnight otherwise. Review of Systems Review of Systems: All systems reviewed & are unremarkable except as noted in HPI & below Physical Exam Physical Exam: Constitutional: Patient appears to be of their stated age. Patient is in no apparent distress. Patient is well-developed. Eyes: Pupils are equal round and reactive to light. Conjunctivae are normal. Anicteric sclera. Ears nose, mouth and throat: Mallampati class 2. Normal posterior oropharynx. Uvula is midline. Neck: Trachea is midline. Visual inspection is normal. Respiratory: Clear to auscultation bilaterally. No use of accessory muscles. No significant clubbing noted. Cardiovascular: Regular rate and rhythm. No murmurs. No edema. Gastrointestinal: Normal bowel sounds, soft, nontender and nondistended. No hepatosplenomegaly noted. Musculoskeletal: No cyanosis. Patient is able to move all extremities. Strength is 5 out of 5 in the upper and lower extremities. Left-sided TCAR site noted with some mild bruising. Adequate hemostasis. Right femoral groin puncture site with pressure bandage placed. No bleeding. Peripheral pulses intact. Skin: No rashes, warm dry and intact. Neurologic: No obvious focal neurological deficits seen. Psychiatric: Alert and oriented x3 with a euthymic affect. Results & Data Results & Data Vital Signs (Past 12 Hours) Vital Signs Temp Pulse Resp BP Pulse Ox 01/06/24 06:30 88 18 93 01/06/24 06:15 91 H 22 93 01/06/24 06:00 89 17 92 01/06/24 06:00 36.5 C 02/07/24 05:52 140/58 L 01/06/24 05:52 90 15 93 01/06/24 05:45 90 18 92 01/06/24 05:30 89 27 H 93 01/06/24 05:15 88 24 93 01/06/24 05:00 36.8 C 88 13 94 01/06/24 04:49 91 H 13 95 01/06/24 04:49 147/69 H 01/06/24 04:30 87 20 94 01/06/24 04:00 86 21 94 01/06/24 03:52 125/68 01/06/24 03:52 87 15 94 01/06/24 03:30 85 21 94 01/06/24 03:00 85 18 94 01/06/24 02:52 127/55 L 01/06/24 02:52 83 13 94 01/06/24 02:30 83 16 94 01/06/24 02:00 90 19 94 01/06/24 01:52 130/60 01/06/24 01:52 84 14 95 01/06/24 01:30 84 19 94 01/06/24 01:00 84 20 95 01/06/24 00:52 125/55 L 01/06/24 00:52 83 16 95 01/06/24 00:30 85 19 95 01/06/24 00:22 126/56 L 01/06/24 00:22 84 13 95 01/06/24 00:00 84 16 94 01/06/24 00:00 85 01/05/24 23:52 124/62 01/05/24 23:52 85 16 94 01/05/24 23:30 85 21 94 01/05/24 23:00 85 21 94 01/05/24 22:52 85 17 94 01/05/24 22:52 128/55 L 01/05/24 22:30 92 H 17 94 01/05/24 22:22 142/64 H 01/05/24 22:22 96 H 11 L 96 Coding Level of Care Code 05446 SUB INP/OBS CARE 12/24MIN Diagnoses Left carotid stenosis I65.22 Hypertension I10 Headache R51.9 Diabetes mellitus, type 2 E11.9
--- NOTE | 2024-01-06 11:14 | Surgery Progress Note ---
Date of Service January 06, 2024 Assessment & Plan (1) Internal carotid artery stent present: Plan: Pt POD #1 after uncomplicated L TCAR, doing well post op. Has been hypertensive and mildly tachycardic since procedure yesterday. Nicardipine gtt stopped around 0600 today, pt remains hypertensive/tachy. The WIRE TWISTING MACHINE OPERATOR went over the pt's home medications again with his granddaughter and it was discovered that he is to be on 50mg BID of metoprolol, not 25mg BID. The additional metoprolol was administered and pt BP and HR significantly improved. Pt discussed with dee Angel for d/c home today. Admission and Anticipated Discharge Date Admission Date: January 05, 2024 Subjective 73 yo M POD #1 after uncomplicated L TCAR, seen in f/u today. Pt overall doing well, states feeling well. DId have a BROUSSARD post op, but that is resolved. Has been hypertensive and mildly tachycardic overnight, nicardipine drip weaned at 0600 today. No new complaints. Review of Systems Review of Systems: All systems reviewed & are unremarkable except as noted in HPI & below Physical Exam Constitutional: WD/WN, vitals as above cooperative; not in distress Neck: trachea midline L supraclavicular incision with mild local edema, small hematoma, tenderness. No significant erythema or drainge noted. Respiratory: normal respiratory effort, lungs clear to auscultation Auscultation: + diminished lung sounds Cardiovascular: Rate/Rhythm: regular rhythm and + tachycardic Vessels: posterior tibial pulses present, dorsalis pedis pulses present and radial pulses present; + abnormal peripheral pulses Extremities: normal capillary refill; no edema Gastrointestinal (Abdomen): Inspection/Auscultation: abdomen normal to inspection and normal bowel sounds Percussion/Palpation: abdomen soft; abdomen nontender Musculoskeletal: no cyanosis or clubbing, extremities motor strength 5/5 Skin: no rashes, warm and dry Neurologic: moves all extremities and awake; no focal motor deficits and not confused Psychiatric: A+Ox3, euthymic affect Results & Data Vital Signs (Past 12 Hours) Vital Signs Temp Pulse Resp BP Pulse Ox 01/06/24 10:30 86 16 147/46 H 95 01/06/24 09:52 94 H 17 145/59 H 95 01/06/24 09:11 98 H 14 150/64 H 96 01/06/24 09:04 102 H 18 138/61 01/06/24 08:00 98 H 14 01/06/24 08:00 92 H 01/06/24 07:52 99 H 22 153/67 H 01/06/24 07:34 105 H 30 H 167/75 H 01/06/24 07:00 88 14 92 01/06/24 06:30 88 18 93 01/06/24 06:15 91 H 22 93 01/06/24 06:00 89 17 92 01/06/24 06:00 36.5 C 01/06/24 05:52 140/58 L 01/06/24 05:52 90 15 93 01/06/24 05:45 90 18 92 01/06/24 05:30 89 27 H 93 01/06/24 05:15 88 24 93 01/06/24 05:00 36.8 C 88 13 94 01/06/24 04:49 91 H 13 95 01/06/24 04:49 147/69 H 01/06/24 04:30 87 20 94 01/06/24 04:00 86 21 94 01/06/24 03:52 125/68 01/06/24 03:52 87 15 94 01/06/24 03:30 85 21 94 01/06/24 03:00 85 18 94 01/06/24 02:52 127/55 L 01/06/24 02:52 83 13 94 01/06/24 02:30 83 16 94 01/06/24 02:00 90 19 94 01/06/24 01:52 130/60 01/06/24 01:52 84 14 95 01/06/24 01:30 84 19 94 01/06/24 01:00 84 20 95 01/06/24 00:52 125/55 L 01/06/24 00:52 83 16 95 01/06/24 00:30 85 19 95 01/06/24 00:22 126/56 L 01/06/24 00:22 84 13 95 01/06/24 00:00 84 16 94 01/06/24 00:00 85 01/05/24 23:52 124/62 01/05/24 23:52 85 16 94 01/05/24 23:30 85 21 94
--- NOTE | 2024-01-06 11:15 | Discharge Summary ---
Date of Service January 06, 2024 Admission HPI Per Admitting Provider Name: UNA CHU Patient Number: [id number] : 1950 Date of Service: 12/24/2023 Chief Complaint: _Follow-up for carotid disease HPI: _Mr. Chu is an elderly male presents to Dr. Hayward vascular surgery clinic today for follow-up appointment regarding his severe left ICA stenosis. Patient was originally seen by Dr. Hayward and myself in July 2023 due to severe left ICA stenosis, and recommended to undergo intervention. Patient elected to undergo a left TCAR. During his preop workup, patient indicated that he had some occasional chest pains. He was referred for evaluation to a local ep specialist, and eventually underwent three-vessel CABG at [facility] in August 2023. Patient states he is anxious to get his TCAR procedure completed, as he is nervous about having a stroke. He states he has been cleared from cardiology to undergo the procedure. He has not had any postoperative complications. He does state to having an area of blurry vision in his left eye, but states that this has been there for many months. He denies any new complaints or concerns, specifically new amaurosis, extremity weakness numbness or tingling, difficulty speaking or swallowing, facial droop, sudden onset confusion. He remains very active and fully independent. Imaging: He underwent a left carotid artery ultrasound prior to today's appointment which continues to demonstrate 80 to 99% stenosis of the left ICA. It remains patent. Current Home Meds: (Last Updated 12/24 09:04) LORazepam (LORazepam 1 mg oral tablet) 1 mg PO tid PRN: as needed for anxiety acetaminophen 650 mg PO q6h PRN: fever/mild pain (1-3) albuterol-ipratropium (albuterol-ipratropium 2.5 mg-0.5 mg/3 mL inhalation solution) 3 mL inhaled qid PRN: as needed for shortness of breath or wheezing albuterol (albuterol CFC free 90 mcg/inh MDI) 2 puff inhaled qid PRN: as needed for wheezing aspirin (aspirin 81 mg oral delayed release tablet) 81 mg PO Daily atorvastatin (atorvastatin 40 mg oral tablet) 40 mg PO Daily baclofen (baclofen 10 mg oral tablet) 10 mg PO tid PRN: spasms carbamide peroxide otic (carbamide peroxide 6.5% otic solution) 10 drop right ear tid cholecalciferol (cholecalciferol 25 mcg (1000 intl units) oral capsule) 25 mcg PO Daily clopidogrel (Plavix 75 mg oral tablet) 75 mg PO Daily cyanocobalamin (cyanocobalamin 1000 mcg oral tablet) 2 tab PO Daily docusate (docusate sodium 100 mg oral capsule) 200 mg PO Daily PRN: as needed for constipation empagliflozin (empagliflozin 25 mg oral tablet) 25 mg PO qAM furosemide (Lasix 20 mg oral tablet) 20 mg PO Daily guaiFENesin (guaiFENesin 600 mg oral tablet, extended release) 600 mg PO bid insulin lispro subQ ac and hs lisinopril (lisinopril 10 mg oral tablet) 10 mg PO Daily loratadine (loratadine 10 mg oral capsule) 10 mg PO Daily magnesium oxide (magnesium oxide 420 mg oral tablet) 420 mg PO Daily metFORMIN (metFORMIN 500 mg oral tablet) 500 mg PO bid metoprolol (metoprolol tartrate 25 mg oral tablet) 25 mg PO bid mirtazapine (mirtazapine 30 mg oral tablet) 30 mg PO qhs omeprazole (omeprazole 20 mg oral delayed release capsule) 20 mg PO Daily polyethylene glycol 3350 (MiraLax) 17 g PO Daily potassium chloride 20 mEq PO Daily pregabalin (pregabalin 75 mg oral capsule) 75 mg PO bid senna (senna 8.6 mg oral tablet) 8.6 mg PO bid PRN: as needed for constipation tamSULOsin (tamsulosin 0.4 mg oral capsule) 0.4 mg PO Daily traMADol (traMADol 50 mg oral tablet) 50 mg PO q6h PRN: pain - severe (7-10) Allergies and Sensitivities: alogliptin(Rash) rOPINIRole(Rash) Past Medical History: Problems: Mixed dyslipidemia Hypertension with heart disease S/P CABG x 3 Coronary artery disease involving robinson heart Former smoker Benign prostate hyperplasia Chronic obstructive pulmonary disease Diabetes mellitus Hyperlipidemia Hypertension Stenosis of left internal carotid artery OBJECTIVE Vitals: Last Updated 12/24/23 09:07 Date Temp BP Location Pulse RR SpO2 Pain 12/24/23 138/54 Left Arm 97 98 0 11/03/23 0 10/14/23 37.0 126/60 Left Arm 130 18 99 Vital Signs are the last 3 documented. No Orthostatic Data Available Height and Weight: Last Updated 10/14/23 14:41 Date BMI Wt(kg) Wt(lb) Method Ht(cm) (ft-in) Method 10/14/23 26.79 73.2 161 Standing Scale 165.3 5-5 Standing 10/04/23 76.6 169 Standing Scale 10/03/23 77.8 171 Standing Scale Heights and Weights are the last 3 documented. Physical Exam Constitutional: In general patient is a healthy-appearing well-nourished well- developed elderly male no distress. Alert and oriented without any focal deficits. His left neck does demonstrate a high-pitched bruit. His heart is regular, his lungs are decreased throughout but clear. His abdomen is soft nontender with active bowel sounds in all 4 quadrants. Brachial and radial pulses are +2. Femoral pulses are +2. Lower extremity distal pulses are +1. He has brisk capillary fill no sign of distal ischemia. ASSESSMENT: _ PLAN: _ 1 ) _severe left ICA stenosis Patient continues to have severe left ICA stenosis, and would benefit from surgical intervention to reduce his risk of CVA. The options of carotid endarterectomy and transcarotid artery revascularization were once again approached with the patient. These were discussed at length, including the risks benefits and alternatives of each. Patient elects to proceed with the left TCAR procedure. The risks of the procedure including but not limited to bleeding, infection, stroke, heart attack, , nerve damage, were discussed at length with the patient by myself at Dr. Hayward's request. Patient expresses understanding and agreement to proceed. This will occur in the next few weeks at the patient's convenience. He is advised to remain on his aspirin, Plavix, and statin medications. Platelet function testing was completed back in July, and demonstrated adequate platelet inhibition while on Plavix. Patient is advised to call our office with any other questions or concerns. He is agreeable to this plan. Thank you for letting us participate in the care of this patient. Signature Line Electronic Signature on File Electronically Reviewed/Signed by: Fabi Navarro PA-C Author Signature Dt/Tm:12/24/2023 01:21 PM [facility] [place], [address] [place] [address] LM Addendum by ROCHELLE Navarro Lynn on December 24, 2023 13:22 EST (Verified) I have personally spent_28__ minutes performing igag-cu-fmvi and def-ghwj-rr-face activities on this date of service.Time does not include sepa rately reported services. Activities Include: _x_ review of the medical record _x_ obtaining a history _x_ physical exam/evaluation x__ review labs x_ review radiology reports x__ counseling/educating patient/family/caregiver __ discussion/referral to other healthcare professional x__ documenting care in the medical record __ independent interpretation of results _x_ communication of results to patient/family/caregiver _x_ coordination of care Signature Line Electronic Signature on File CC: ROCHELLE Schroeder [facility] [address] [facility] [id number] * CC: Jose Espinoza [address] [facility] [address] [facility] [address] CC: Bertrand Amaral MD [address] [facility] [address] [facility] [address] * Electronically Reviewed/Signed by: Fabi Navarro PA-C Author Signature Dt/Tm:12/24/2023 01:22 PM [facility] [address] [place] [address] LM Result Type: HVI Outpt Note Date of Service: December 24, 2023 12:59 EST Authorization Status: Modified Author or Import Date: ROCHELLE Navarro Lynn on December 24, 2023 13:21 EST Verified By: ROCHELLE Navarro Lynn on December 24, 2023 13:21 EST Encounter info: [id number], [place] [address], Clinic, 12/24/2023 - 12/24/2023 Admission Exam Per Admitting Provider Constitutional: In general patient is a healthy-appearing well-nourished well- developed elderly male no distress. Alert and oriented without any focal deficits. His left neck does demonstrate a high-pitched bruit. His heart is regular, his lungs are decreased throughout but clear. His abdomen is soft nontender with active bowel sounds in all 4 quadrants. Brachial and radial pulses are +2. Femoral pulses are +2. Lower extremity distal pulses are +1. He has brisk capillary fill no sign of distal ischemia. Principal Diagnosis 1. s/p L TCAR 2. L ICA Stenosis Discharge Exam Constitutional WD/WN, vitals as above cooperative; not in distress Neck trachea midline Respiratory normal respiratory effort, lungs clear to auscultation Auscultation: + diminished lung sounds Cardiovascular Rate/Rhythm: regular rhythm and + tachycardic Vessels: posterior tibial pulses present, dorsalis pedis pulses present and radial pulses present; + abnormal peripheral pulses Extremities: normal capillary refill; no edema Gastrointestinal (Abdomen) Inspection/Auscultation: abdomen normal to inspection and normal bowel sounds Percussion/Palpation: abdomen soft; abdomen nontender Musculoskeletal no cyanosis or clubbing, extremities motor strength 5/5 Skin no rashes, warm and dry Neurologic moves all extremities and awake; no focal motor deficits and not confused Psychiatric A+Ox3, euthymic affect Discharge Data Allergies Allergy/AdvReac Type Severity Reaction Status Date / Time No Known Allergies Allergy Verified 01/05/24 08:35 Consultations 01/05/24 16:03 Consult Feather Edger Routine Procedures Performed Operation Date: 01/05/24 10:30 Actual Procedures p Left Transcarotid Artery Revascularization(Left) - Sacha Hayward MD Ordered Studies 01/05/24 07:15 EV angio carotid cerv LT Routine 01/05/24 07:16 US EV guide vascular access Routine Hospital Course (1) Internal carotid artery stent present: Pt POD #1 after uncomplicated L TCAR, doing well post op. Has been hypertensive and mildly tachycardic since procedure yesterday. Nicardipine gtt stopped around 0600 today, pt remains hypertensive/tachy. The FILM DEVELOPER went over the pt's home medications again with his granddaughter and it was discovered that he is to be on 50mg BID of metoprolol, not 25mg BID. The additional metoprolol was administered and pt BP and HR significantly improved. Pt discussed with dee Angel for d/c home today. Total Time Total Time Spent Total Time Spent (In Minutes): 0 Discharge Plan Discharge Items Patient Disposition: Home - Self-Care Reason For Visit: Left Carotid Artery Stenosis Discharge Diagnosis: 1. s/p L TCAR 2. LICAS Activity: Per Instructions section Non-emergency contact: Primary Care Provider, Surgeon and Paraplanner Call non-emergency contact if: you have any medication questions, your pain is not controlled, your pain is concerning for you, you have a fever, your wound has increased redness and your wound has increased drainage Follow-up/Referrals: Sacha Hayward MD [Physician] - (Follow up with Dr Hayward or Fabi Navarro PA-C, in 2 weeks. ) Verna Vallejo PA-C [Primary Care Provider] - (Follow up with your PCP within 2 weeks) Diet: Carb Consistent or DM2 and Heart Healthy Addtl Attending Provider Instructions: SPECIAL CARE INSTRUCTIONS: Medications: * Continue to take Aspirin, plavix, and statin medications as directed. DO NOT STOP THESE MEDICATIONS WITHOUT SPEAKING TO DR HAYWARD'S OFFICE Incision Care: * You may shower, but do not rub incision. You may let the warm soapy water run over it. Be sure to dry the incision well after bathing. * Do not shave directly over the incision until it is healed. * DO NOT IMMERSE THE INCISION IN A TUB/POOL/etc. UNTIL HEALED. Restrictions: * Do not drive for at least one week or if you are still taking any narcotic pain medication. * Do not lift anything heavier than a gallon of milk for one week after going home. Possible Complications: * Numbness - It is normal to have some numbness around the incision. Numbness can extend beyond the incision to areas of the neck, ear and face. The numbness is due to bruising of nerves during the surgery and will gradually improve o fred a period of months. * Hoarseness/Difficulty Speaking and Swallowing - The bruising of nerves in the neck can also cause a hoarse voice, difficulty speaking or swallowing. This may improve over time, HOWEVER, if it continues for more than a few days please contact our office ([phone]). * Excessive Swelling - There will be some swelling immediately after surgery which usually resolves within one week. If you notice that the swelling is getting worse, notify your surgeon ([phone]). * Drainage/Bleeding - If there is any drainage or bleeding, it should be a very small amount (less than a teaspoon per day). If you have excessive bleeding or drainage from the incision, call your surgeon ([phone]) right away. ACTIVATION OF EMERGENCY MEDICAL SYSTEM: Call 911, immediately, if you experience any of the following: Warning Signs and Symptoms of Stroke: * Sudden numbness or weakness of the face, arm or leg, especially on one side of the body * Sudden confusion, trouble speaking or understanding * Sudden trouble seeing in one or both eyes * Sudden trouble walking, dizziness, loss of balance or coordination * Sudden severe headache with no cause Do not delay calling 911 if you experience any warning signs or symptoms of a stroke. Delay in seeking medical attention may affect what treatments can be given to you. Risk Factors for Stroke: You can reduce your chances of stroke by working with your medical provider to adopt a healthy lifestyle. Some specific ways to lower your chance of stroke are: * If you are a smoker, now is the time to stop smoking cigarettes * If you are diabetic, improve the control of your blood sugars * Avoid excessive amounts of alcohol * Control high blood pressure * Lose weight if you are overweight * Be sure to lead an active lifestyle * Eat a healthy diet low in salt, cholesterol and fat You should know about other risk factors for stroke that you are unable to control. These include: * Age 55 years or older * Male gender * Certain racial groups: , or / * Family History of Stroke, Mini stroke or Heart Attack * Sickle Cell Disease You will be receiving a call from the Vascular Surgery Nurse after you are discharged. FOLLOW UP VISIT: It is important for you to keep your follow up appointments with your medical provider. Keep any scheduled doctor appointments. Pending Studies at Discharge: No Stand-Alone Forms: My [facility], Smoking Cessation Medications and DC Order Prescriptions: Continued omeprazole 20 mg capsule,delayed release(DR/EC) 20 mg PO DAILY PRN (Reason: Acid Reflux) tamsulosin 0.4 mg capsule 0.4 mg PO QAM albuterol sulfate [Ventolin HFA] 90 mcg/actuation Hfa Aerosol Inhaler 1 inh INHALATION QID PRN (Reason: sob) clopidogrel 75 mg Tablet 75 mg PO QAM aspirin 81 mg Tablet,Delayed Release (Dr/Ec) 81 mg PO QAM cyanocobalamin (vitamin B-12) [Vitamin B-12] 1,000 mcg Tablet 1,000 mcg PO QPM mirtazapine [Remeron] 30 mg Tablet 30 mg PO HS metformin 500 mg Tablet Extended Release 24hr 500 mg PO BID atorvastatin 40 mg Tablet 40 mg PO QPM insulin glargine [Lantus U-100 Insulin] 100 unit/mL Solution 30 unit SUBCUT QAM tramadol 50 mg Tablet 50 mg PO Q8H PRN (Reason: Pain) lorazepam 1 mg Tablet 1 mg PO DAILY PRN (Reason: Anxiety) loratadine [Claritin] 10 mg Tablet 10 mg PO QAM cholecalciferol (vitamin D3) [Vitamin D3] 25 mcg (1,000 unit) Capsule 25 mcg PO QAM guaifenesin [Mucinex] 600 mg Tablet Extended Release 12hr 600 mg PO BID Jardiance 25 mg Tablet 12.5 mg PO QAM Changed metoprolol tartrate 25 mg Tablet 50 mg PO BID Qty: 60 0RF Discharge Orders: Discharge Order (Routine); Ordered 01/06/24 Ordered By: Fabi Navarro Admission Data Admit Date/Time: 01/05/24 09:11 Attending Provider: Sacha Hayward Admit Provider: Sacha Hayward Primary Care Provider: Verna Vallejo Other Providers: Dragan Singletary; Valdemar Elmore; Calixto Mon; Kristian Harris; Vince Smith; Andressa Woodall; Javier Hubbard; Cheryl Kaminski; Josefa Bell; Sung Iverson; Randy Patel; Jessy Victoria
== END 2024-01-06 13:20 | disposition home or self-care (01) | DRG 36 ==
LOC: ASU 08:10 → 1E 09:11
PROC: EV.TCAR (2024-01-05 10:30)

== ENCOUNTER 2024-04-12 07:15 | Inpatient (IN) ==
--- NOTE | 2024-03-29 09:08 | Anesthesiology Consultation ---
Date of Service March 29, 2024 Assessment & Plan Chart Review Chart Review: Acceptable Risk for Surgery and Patient NOT seen in Pre Admission Testing Consults Requested none History Surgery Operation Date: 04/12/24 08:00 Proposed Procedures p Right Carotid Endarterectomy, Right Common Carotid Artery Stent - Sacha Cho MD Height/Weight Height: 5 ft 6 in Weight: 75.75 kg Allergies Allergy/AdvReac Type Severity Reaction Status Date / Time No Known Allergies Allergy Verified 03/28/24 13:06 Medications Home Medications Medication Instructions Recorded Confirmed Last Taken omeprazole 20 mg capsule,delayed 20 mg PO QAM Acid Reflux 04/30/20 03/28/24 1 Month Ago release ~12/05/23 tamsulosin 0.4 mg capsule 0.4 mg PO QAM 04/30/20 03/28/24 01/04/24 17:30 albuterol sulfate 90 mcg/actuation 1 inh inhalation QID PRN sob 05/29/20 03/28/24 Unknown aerosol inhaler (Ventolin HFA) aspirin 81 mg tablet,delayed 81 mg PO QAM 08/13/23 03/28/24 01/05/24 06:30 release clopidogrel 75 mg tablet 75 mg PO QAM 08/13/23 03/28/24 01/05/24 06:30 cyanocobalamin (vitamin B-12) 1,000 mcg PO QPM 08/24/23 03/28/24 01/04/24 17:30 1,000 mcg tablet (Vitamin B-12) metformin 500 mg tablet,extended 500 mg PO BID 08/24/23 03/28/24 01/04/24 17:30 release 24hr (osmotic) mirtazapine 30 mg tablet (Remeron) 30 mg PO HS 08/24/23 03/28/24 01/04/24 17:30 cholecalciferol (vitamin D3) 25 25 mcg PO BID 12/28/23 03/28/24 01/04/24 17:30 mcg (1,000 unit) capsule (Vitamin D3) empagliflozin 25 mg tablet 12.5 mg PO QAM 12/28/23 03/28/24 2 Days Ago (Jardiance) ~01/03/24 insulin glargine 100 unit/mL 30 unit subcut QAM 12/28/23 03/28/24 01/05/24 06:30 subcutaneous solution (Lantus 15 units U-100 Insulin) loratadine 10 mg tablet (Claritin) 10 mg PO DAILY PRN allergy relief 12/28/23 03/28/24 Unknown lorazepam 1 mg tablet 1 mg PO DAILY PRN Anxiety 12/28/23 03/28/24 2 Months Ago ~11/04/23 tramadol 50 mg tablet 50 mg PO Q8H PRN Pain 12/28/23 03/28/24 1 Month Ago ~12/05/23 atorvastatin 80 mg tablet 40 mg PO QAM 03/28/24 03/28/24 Unknown carboxymethylcellulose sodium 1 % 1 drp ophthalmic (eye) UD 03/28/24 03/28/24 Unknown eye liquid gel drops dexamethasone 0.1 % eye 1 drp ophthalmic (eye) BID 03/28/24 03/28/24 Unknown drops,suspension lisinopril 10 mg tablet 10 mg PO QAM 03/28/24 03/28/24 Unknown lovastatin 40 mg tablet 40 mg PO QAM 03/28/24 03/28/24 Unknown metoprolol tartrate 50 mg tablet 25 mg PO BID 03/28/24 03/28/24 Unknown ondansetron HCl 4 mg tablet 4 mg PO Q6H PRN Nausea 03/28/24 03/28/24 Unknown polyethylene glycol 3350 17 gram 17 g PO HS 03/28/24 03/28/24 Unknown oral powder packet (Miralax) Past Medical History Medical History (Updated 03/28/24 @ 13:30 by Valerie Loomis RN) Macular degeneration Carotid stenosis, right Hearing deficit Myocardial Infarction 08/2023 CAD (coronary artery disease) CABG x3 (08/2023) Follows with Dr. Espinoza Carotid artery stenosis Neck CTA 08/05/23: Extensive atherosclerotic disease resulting in 90% right coronal and carotid artery stenosis and 80% left common carotid artery stenosis. Aortic aneurysm [facility] monitoring BPH (benign prostatic hyperplasia) Gastroparesis GERD (gastroesophageal reflux disease) Diabetes mellitus, type 2 Hyperlipidemia Hypertension Chronic obstructive pulmonary disease Past Family History Family History Mother Diabetes Sister Diabetes Other No family history of adverse response to anesthesia Past Surgical History Surgical History (Updated 03/28/24 @ 13:26 by Valerie Loomis RN) H/O transcarotid artery revascularization (TCAR) left History of cardiac cath 08/2023 at [place] prior to CABG History of coronary artery bypass graft 09/29/23> CABG x3 ([facility]) Hx of esophagogastroduodenoscopy Hx of colonoscopy Hx of tonsillectomy Hx of cholecystectomy Social History Smoking Status: Former smoker Do You Dip or Chew Tobacco: No Smoking End Date: 2008 Hx Alcohol Use: No substance use type: does not use Testing Electrocardiogram Findings: + RBBB Echocardiogram Date: 10/02/23 EF: 50-55% LV Function: normal Valvular Disease: + no significant valvular disease
[2024-04-12] MEDS ORDERED: ONDANSETRON INJ 2 MG/ML 2 ML VIAL ONE (07:37)
[2024-04-12] MEDS ORDERED: LIDOCAINE 2% 2 ML VIAL/AMP(20MG/ML) INFIL ONE (07:37)
[2024-04-12] MEDS ORDERED: PROPOFOL IV EMULSION 10 MG/ML 20 ML VIAL IV ONE (07:37)
[2024-04-12] MEDS ORDERED: ROCURONIUM BROMIDE 10 MG/ML 5 ML VIAL IV ONE ×2 (07:37→11:10)
[2024-04-12] MEDS ORDERED: DEXAMETHASONE SOD INJ 4 MG/ML VIAL ONE (07:37)
[2024-04-12] MEDS ORDERED: fentaNYL citrate PF 100 MCG/2 ML VIAL ONE ×2 (07:38→13:49)
[2024-04-12] MEDS ORDERED: SUGAMMADEX SODIUM 200 MG/2 ML VIAL IV ONE (07:38)
[2024-04-12] MEDS ORDERED: MIDAZOLAM HCL 1 MG/ML 2ML VIAL ONE (07:38)
[2024-04-12] MEDS ORDERED: PHENYLEPHRINE HCL 10 MG/ML VIAL ONE (07:39)
[2024-04-12] MEDS ORDERED: HEPARIN SOD (PORCINE) 1000 UNIT/ML ONE ×2 (07:39→12:06)
[2024-04-12] MEDS ORDERED: NITROGLYCERIN 5 MG/ML 10 ML VIAL ONE (07:40)
[2024-04-12] MEDS ORDERED: SODIUM CHLORIDE 0.9% PF INJ 10 ML VIAL ONE ×2 (07:40→07:42)
[2024-04-12] MEDS ORDERED: ONDANSETRON INJ 2 MG/ML 2 ML VIAL IV PRN (07:48)
[2024-04-12] MEDS ORDERED: ePHEDrine sulfate 50 MG/ML AMP IV PRN (07:48)
[2024-04-12] MEDS ORDERED: FLUMAZENIL 0.1 MG/1 ML 10 ML VIAL IV PRN (07:48)
[2024-04-12] MEDS ORDERED: PROMETHAZINE HCL 6.25 MG in SODIUM CHLORIDE 0.9% 50 ML IV PRN (07:48)
[2024-04-12] MEDS ORDERED: LABETALOL HCL IV 5 MG/ML 20ML IV PRN (07:48)
[2024-04-12] MEDS ORDERED: ATROPINE SULFATE 0.1 MG/ML 10ML SYR IV PRN (07:48)
[2024-04-12] MEDS ORDERED: fentaNYL citrate PF 100 MCG/2 ML VIAL IV PRN (07:48)
[2024-04-12] MEDS ORDERED: NALOXONE HCL 0.4 MG/1 ML VIAL/CARP IV PRN (07:48)
--- NOTE | 2024-04-12 07:51 | History & Physical Report ---
Date of Service April 12, 2024 History of Present Illness Chief Complaint: Right internal and common carotid arery stenosis Primary Care Provider: Verna Vallejo PA-C Name: UNA LACKEY Patient Number: [id number] : 1950 Chief Complaint: Right internal and common carotid artery stenosis HPI: _Mr. Lackey is an elderly male who was originally seen in July 2023 due to severe left ICA stenosis, and recommended to undergo intervention. Patient elected to undergo a left TCAR. During his preop workup, patient indicated that he had some occasional chest pains. He was referred for evaluation to a local screen operator, and eventually underwent three-vessel CABG at [facility] in August 2023. Earlier this year he underwent an uncomplicated left tcar. He denies any new complaints or concerns, specifically new amaurosis, extremity weakness numbness or tingling, difficulty speaking or swallowing, facial droop, sudden onset confusion. He remains very active and fully independent. He is now admitted for a right CEA and stenting of his right common carotid artery. Imaging: He underwent a left carotid artery ultrasound prior to today's appointment which continues to demonstrate 80 to 99% stenosis of the right ICA. It remains patent. Current Home Meds: (Last Updated 12/24 09:04) LORazepam (LORazepam 1 mg oral tablet) 1 mg PO tid PRN: as needed for anxiety acetaminophen 650 mg PO q6h PRN: fever/mild pain (1-3) albuterol-ipratropium (albuterol-ipratropium 2.5 mg-0.5 mg/3 mL inhalation solution) 3 mL inhaled qid PRN: as needed for shortness of breath or wheezing albuterol (albuterol CFC free 90 mcg/inh MDI) 2 puff inhaled qid PRN: as needed for wheezing aspirin (aspirin 81 mg oral delayed release tablet) 81 mg PO Daily atorvastatin (atorvastatin 40 mg oral tablet) 40 mg PO Daily baclofen (baclofen 10 mg oral tablet) 10 mg PO tid PRN: spasms carbamide peroxide otic (carbamide peroxide 6.5% otic solution) 10 drop right ear tid cholecalciferol (cholecalciferol 25 mcg (1000 intl units) oral capsule) 25 mcg PO Daily clopidogrel (Plavix 75 mg oral tablet) 75 mg PO Daily cyanocobalamin (cyanocobalamin 1000 mcg oral tablet) 2 tab PO Daily docusate (docusate sodium 100 mg oral capsule) 200 mg PO Daily PRN: as needed for constipation empagliflozin (empagliflozin 25 mg oral tablet) 25 mg PO qAM furosemide (Lasix 20 mg oral tablet) 20 mg PO Daily guaiFENesin (guaiFENesin 600 mg oral tablet, extended release) 600 mg PO bid insulin lispro subQ ac and hs lisinopril (lisinopril 10 mg oral tablet) 10 mg PO Daily loratadine (loratadine 10 mg oral capsule) 10 mg PO Daily magnesium oxide (magnesium oxide 420 mg oral tablet) 420 mg PO Daily metFORMIN (metFORMIN 500 mg oral tablet) 500 mg PO bid metoprolol (metoprolol tartrate 25 mg oral tablet) 25 mg PO bid mirtazapine (mirtazapine 30 mg oral tablet) 30 mg PO qhs omeprazole (omeprazole 20 mg oral delayed release capsule) 20 mg PO Daily polyethylene glycol 3350 (MiraLax) 17 g PO Daily potassium chloride 20 mEq PO Daily pregabalin (pregabalin 75 mg oral capsule) 75 mg PO bid senna (senna 8.6 mg oral tablet) 8.6 mg PO bid PRN: as needed for constipation tamSULOsin (tamsulosin 0.4 mg oral capsule) 0.4 mg PO Daily traMADol (traMADol 50 mg oral tablet) 50 mg PO q6h PRN: pain - severe (7-10) Allergies and Sensitivities: alogliptin(Rash) rOPINIRole(Rash) Past Medical History: Problems: Mixed dyslipidemia Hypertension with heart disease S/P CABG x 3 Coronary artery disease involving [place] heart Former smoker Benign prostate hyperplasia Chronic obstructive pulmonary disease Diabetes mellitus Hyperlipidemia Hypertension Stenosis of left internal carotid artery OBJECTIVE physical Exam Constitutional: In general patient is a healthy-appearing well-nourished well- developed elderly male no distress. Alert and oriented without any focal deficits. His left neck does demonstrate a high-pitched bruit. His heart is regular, his lungs are decreased throughout but clear. His abdomen is soft nontender with active bowel sounds in all 4 quadrants. Brachial and radial pulses are +2. Femoral pulses are +2. Lower extremity distal pulses are +1. He has brisk capillary fill no sign of distal ischemia. ASSESSMENT: _ PLAN: _ 1 ) _severe right common and ICA stenosis Patient is admitted for a stenting of his right common carotid artery and a right cea. I have discussed the risks options and benefits of the procedure with the patient. The patient understands the risks options and benefits and agrees to the procedure. Allergies Allergy/AdvReac Type Severity Reaction Status Date / Time No Known Allergies Allergy Verified 12/28/23 09:34 Home Medications Medication Instructions Recorded Confirmed Type omeprazole 20 mg capsule,delayed 20 mg PO DAILY PRN Acid Reflux 04/30/20 12/28/23 History release tamsulosin 0.4 mg capsule 0.4 mg PO QAM 04/30/20 12/28/23 History albuterol sulfate 90 mcg/actuation 1 inh inhalation QID PRN sob 05/29/20 12/28/23 History aerosol inhaler (Ventolin HFA) aspirin 81 mg tablet,delayed 81 mg PO QAM 08/13/23 12/28/23 History release clopidogrel 75 mg tablet 75 mg PO QAM 08/13/23 12/28/23 History cyanocobalamin (vitamin B-12) 1,000 mcg PO QPM 08/24/23 12/28/23 History 1,000 mcg tablet (Vitamin B-12) metformin 500 mg tablet,extended 500 mg PO BID 08/24/23 12/28/23 History release 24hr (osmotic) mirtazapine 30 mg tablet 30 mg PO HS 08/24/23 12/28/23 History atorvastatin 40 mg tablet 40 mg PO QPM 12/28/23 12/28/23 History cholecalciferol (vitamin D3) 25 25 mcg PO QAM 12/28/23 12/28/23 History mcg (1,000 unit) capsule (Vitamin D3) empagliflozin 25 mg tablet 12.5 mg PO QAM 12/28/23 12/28/23 History guaifenesin 600 mg tablet, 600 mg PO BID 12/28/23 12/28/23 History extended release 12 hr (Mucinex) insulin glargine 100 unit/mL 30 unit subcut QAM 12/28/23 12/28/23 History subcutaneous solution (Lantus U-100 Insulin) loratadine 10 mg tablet (Claritin) 10 mg PO QAM 12/28/23 12/28/23 History lorazepam 1 mg tablet 1 mg PO DAILY PRN Anxiety 12/28/23 12/28/23 History metoprolol tartrate 25 mg tablet 25 mg PO BID 12/28/23 12/28/23 History tramadol 50 mg tablet 50 mg PO Q8H PRN Pain 12/28/23 12/28/23 History Past Med/Surg History Medical History Aortic aneurysm [facility] (08/16/23): Dilated aortic root (4.1 cm) and ascending aorta (4.3 cm)BPH (benign prostatic hyperplasia) CAD (coronary artery disease) CABG x3 (08/2023) Follows with Dr. Dunntid artery stenosis Neck CTA 08/05/23: Extensive atherosclerotic disease resulting in 90% right coronal and carotid artery stenosis and 80% left common carotid artery stenosis.Chronic obstructive pulmonary disease Diabetes mellitus, type 2 Gastroparesis GERD (gastroesophageal reflux disease) Hearing deficit Hyperlipidemia Hypertension Myocardial Infarction 08/2023 Surgical History History of cardiac cath 08/2023 at [place] prior to CABGHistory of coronary artery bypass graft 09/29/23> CABG x3 ([facility])Hx of cholecystectomy Hx of colonoscopy Hx of esophagogastroduodenoscopy Hx of tonsillectomy Family History Mother DiabetesSister DiabetesOther No family history of adverse response to anesthesia Social History Smoking Status: Former smoker Tobacco Type: Cigarettes Smoking End Date: 2004?; Second Hand Exposure: No; Do You Dip or Chew Tobacco: No; Hx Alcohol Use: No Preferred Language: Israeli Communication Ability: Effective Actuarial Consultant Required: No Beliefs That Will Affect Care: None Current Living Situation: Spouse Feels Safe at Home: Yes Safety Concerns: Feels Safe At This Time Assistive Devices: Glasses and Hearing Aid - Bilateral Allergies Allergy/AdvReac Type Severity Reaction Status Date / Time No Known Allergies Allergy Verified 03/28/24 13:06 Home Medications Medication Instructions Recorded Confirmed Type omeprazole 20 mg capsule,delayed 20 mg PO QAM Acid Reflux 04/30/20 03/28/24 History release tamsulosin 0.4 mg capsule 0.4 mg PO QAM 04/30/20 03/28/24 History albuterol sulfate 90 mcg/actuation 1 inh inhalation QID PRN sob 05/29/20 03/28/24 History aerosol inhaler (Ventolin HFA) aspirin 81 mg tablet,delayed 81 mg PO QAM 08/13/23 03/28/24 History release clopidogrel 75 mg tablet 75 mg PO QAM 08/13/23 03/28/24 History cyanocobalamin (vitamin B-12) 1,000 mcg PO QPM 08/24/23 03/28/24 History 1,000 mcg tablet (Vitamin B-12) metformin 500 mg tablet,extended 500 mg PO BID 08/24/23 03/28/24 History release 24hr (osmotic) mirtazapine 30 mg tablet (Remeron) 30 mg PO HS 08/24/23 03/28/24 History cholecalciferol (vitamin D3) 25 25 mcg PO BID 12/28/23 03/28/24 History mcg (1,000 unit) capsule (Vitamin D3) empagliflozin 25 mg tablet 12.5 mg PO QAM 12/28/23 03/28/24 History (Jardiance) insulin glargine 100 unit/mL 30 unit subcut QAM 12/28/23 03/28/24 History subcutaneous solution (Lantus U-100 Insulin) loratadine 10 mg tablet (Claritin) 10 mg PO DAILY PRN allergy relief 12/28/23 03/28/24 History lorazepam 1 mg tablet 1 mg PO DAILY PRN Anxiety 12/28/23 03/28/24 History tramadol 50 mg tablet 50 mg PO Q8H PRN Pain 12/28/23 03/28/24 History atorvastatin 80 mg tablet 40 mg PO QAM 03/28/24 03/28/24 History carboxymethylcellulose sodium 1 % 1 drp ophthalmic (eye) UD 03/28/24 03/28/24 History eye liquid gel drops dexamethasone 0.1 % eye 1 drp ophthalmic (eye) BID 03/28/24 03/28/24 History drops,suspension lisinopril 10 mg tablet 10 mg PO QAM 03/28/24 03/28/24 History lovastatin 40 mg tablet 40 mg PO QAM 03/28/24 03/28/24 History metoprolol tartrate 50 mg tablet 25 mg PO BID 03/28/24 03/28/24 History ondansetron HCl 4 mg tablet 4 mg PO Q6H PRN Nausea 03/28/24 03/28/24 History polyethylene glycol 3350 17 gram 17 g PO HS 03/28/24 03/28/24 History oral powder packet (Miralax) Past Med/Surg History Problem List Internal carotid artery stent present Left carotid stenosis Non-ST elevation (NSTEMI) myocardial infarction Ileus Enteritis Carotid stenosis, right CAD (coronary artery disease) CABG x3 (08/2023) Follows with Dr. Espinoza Hyperlipidemia Hypertension Diabetes mellitus, type 2 Medical History Macular degeneration Hearing deficit Myocardial Infarction 08/2023 Carotid artery stenosis Neck CTA 08/05/23: Extensive atherosclerotic disease resulting in 90% right coronal and carotid artery stenosis and 80% left common carotid artery stenosis. Aortic aneurysm [facility] monitoring BPH (benign prostatic hyperplasia) Gastroparesis GERD (gastroesophageal reflux disease) Chronic obstructive pulmonary disease Surgical History H/O transcarotid artery revascularization (TCAR) left History of cardiac cath 08/2023 at [place] prior to CABG History of coronary artery bypass graft 09/29/23> CABG x3 ([facility]) Hx of esophagogastroduodenoscopy Hx of colonoscopy Hx of tonsillectomy Hx of cholecystectomy Family History Mother Diabetes Sister Diabetes Other No family history of adverse response to anesthesia Social History Smoking Status: Former smoker Tobacco Type: Cigarettes Smoking End Date: 2008; Second Hand Exposure: No; Do You Dip or Chew Tobacco: No; Hx Alcohol Use: No Preferred Language: Israeli Communication Ability: Effective Actuarial Consultant Required: No Beliefs That Will Affect Care: None Current Living Situation: Alone Feels Safe at Home: Yes Safety Concerns: Feels Safe At This Time Assistive Devices: Glasses and Hearing Aid - Bilateral Review of Systems All systems reviewed & are unremarkable except as noted in HPI & below
--- NOTE | 2024-04-12 07:51 | History & Physical Bridge Note ---
Date of Service April 12, 2024 History & Physical Bridge Note I have examined the patient, reviewed the History & Physical and in the interval since the performance of the History & Physical I have noted the following changes of clinical significance: no changes noted
[2024-04-12] MEDS ORDERED: REMIFENTANIL HCL 1 MG VIAL IV ONE (07:58)
[2024-04-12 08:19] LABS: Partial Thromboplastin Time 26 Seconds (21-31); Prothrombin Time 10.6 Seconds (9.0-12.0)
[2024-04-12 08:26] LABS: Calcium 9.3 mg/dl (8.6-10.3); Creatinine Clr Calc Pharmacy 84.4 ml/min; Est GFR (African American) 104.2 ml/min; Est GFR (Non-African American) 89.9 ml/min; Potassium 4.3 mmol/L (3.5-5.1)
[2024-04-12] MEDS: SODIUM CHLORIDE 0.9% 1,000 ML IV SCH (08:31)
[2024-04-12] MEDS: CEFAZOLIN 2,000 MG/15 ML SYR IV SCH (09:32)
[2024-04-12] MEDS ORDERED: ESMOLOL HCL INJ 10 MG/ML 10ML VIAL IV ONE (10:20)
[2024-04-12] MEDS ORDERED: ePHEDrine sulfate 50 MG/5 ML SYR ONE (10:20)
[2024-04-12] MEDS ORDERED: SODIUM CHLORIDE 0.9% 250 ML IV PRN ×2 (13:07→13:51)
[2024-04-12] MEDS: ceFAZolin 330 MG/ML 1 GM VIAL ONE (13:18)
[2024-04-12] MEDS: BUPIVACAINE/EPINEPHRINE 0.5% MPF 1:200,000 30 ML VIAL ONE (13:18)
--- NOTE | 2024-04-12 13:22 | Post Operative Brief Note ---
Immediate Post Op Note v1 Date of Surgery April 12, 2024 Pre & Post Diagnosis Operation Date: 04/12/24 08:50 Pre-Op Diagnosis: Right Carotid Artery Stenosis Post-Op Diagnosis: Right Carotid Artery Stenosis I identified the patient and participated in the time-out.: Yes Procedure Operation Date: 04/12/24 08:50 Actual Procedures p Right Carotid Endarterectomy, Right Common Carotid Artery Stent(Right) - Sacha Cho MD Surgeon Sacha Cho MD Quality Assurance Clerk MD China HenriquezMinarchyasmine,PAC Estimated Blood Loss 500 Findings Consistent with Post-Op Diagnosis Anesthesia Type General Complications none Disposition Accompanied Patient To Recovery: No Disposition: Recovery Room
[2024-04-12] MEDS: GELATIN SPONGE SZ 100 ONE (13:30)
[2024-04-12 13:31] LABS: Hematocrit (blood only) 36.1 % (42.0-52.0); Hemoglobin 11.8 g/dl (14.0-18.0)
[2024-04-12] MEDS: LIDOCAINE 1% LOCAL 20 ML VIAL ONE (13:31)
[2024-04-12] MEDS: HEPARIN (PORCINE) 1000 UNIT/ML 10 ML (CATH LAB USE ONLY) ONE (13:31)
[2024-04-12] MEDS: THROMBIN FOR SOLN 20000 UNIT KIT ONE (13:31)
[2024-04-12] MEDS: VISIPAQUE IV ONE (13:32)
[2024-04-12] MEDS ORDERED: ceFAZolin 330 MG/ML 1 GM VIAL ONE (14:22)
--- NOTE | 2024-04-12 14:36 | Procedure Note ---
Angiogram Post Procedure Fluoroscopy Time (minutes): 1.2 Radiation (mGy): 29.4 Contrast: 12 Post Operative Report Pre & Post Diagnosis Operation Date: 04/12/24 08:50 Pre Op Dx: Right internal and common carotid artery stenosis Post Op Dx: Right internal and common carotid artery stenosis I identified the patient and participated in the time-out.: Yes Procedure Operation Date: 04/12/24 08:50 p Right Carotid Endarterectomy, Right Common Carotid Artery Stent(Right) - Sacha Cho MD Surgeon Sacha Cho MD Funeral Attendant MD Chuy Henriquez,PAC Estimated Blood Loss 500 Findings See Below Patent right common carotid stent with palpable pulse in common,internal, and external carotid arteries. Fluids See anesthesia record Specimens right carotid plaque Drains none Anesthesia Type General Complications none Disposition Accompanied Patient To Recovery: Yes Disposition: Recovery Room Indications asymptomatic high grade right carotid bulb stenosis and right common carotid stenosis Description of Procedure The patient was taken to the operating room and placed in supine position. After general anesthesia was accomplished the right-side of the neck was prepped and draped in a sterile manner. A longitudinal neck incision was then made coursing along the medial border of the sternocleidomastoid muscle from the ear lobe to the clavicle. The incision was taken down through the platysmal layer using bovie electrocautery. Small venous branches were ligated with 3-0 silk ties. The facial vein was identified, ligated, and divided. The common carotid artery was then seen. It was dissected free down to the omohyoid muscle. The omohyoid was divided for more proximal control. The dissection was carried upward until the external carotid artery and superior thyroid artery was seen. There were dense adhesions along the length of the common carotid artery. The superior thyroid artery was slung with a 2-0 silk suture. The external carotid was slung with a red rubber vessel loop. Next the dissection was carried up along the internal carotid artery. This was carried upward to beyond the area of narrowing. The hypoglossal nerve was seen and preserved. The crossing artery and vein over the hypoglossal nerve were ligated and divided. The patient was heparinized. After adequate heparinization was accomplished, the internal, external, and common carotid arteries were clamped. A longitudinal arteriotomy was started on the common carotid artery and extended upward along the internal carotid artery to a point beyond the area of narrowing. There layer of plaque was very dense therefore time was taken to find the true lumen that was near the posterior wall of the artery. There was calcified plaque of the common carotid artery extending just distal to the internal origin. A 3-4 shunt was then placed in the internal, followed by the common carotid artery and held in place with Ho clamps. There was good back bleeding seen from the internal carotid artery. The endarterectomy was then started in the appropriate plane on the common carotid artery. This was carried upward and the external carotid was everted and endarterectomized. There was minial plaque in the external artery. The endarterectomy was then carried up along the internal carotid artery till a nice feathering breakoff point was accomplished beyond the end of the plaque. The endarterectomy was then carried down further on the common carotid artery. At end of the arteriotomy, the plaque was then transected. Under loop magnification, all loose debris and flaps were removed. There is no distal flap seen at the end of the endarterectomy site. The arteriotomy then closed using an bovine carotid patch and a running 6-0 prolene This was done in the usual vascular fashion. Prior to completing the closure, the shunt was removed and the internal and external bifurcation was clamped to allow flow between the internal and external arteries and a short 8 [address] lucian sheath was placed towards the common carotid origin. There was pulsatile bleeding noted from the distal end of the patch and multiple 6-0 Prolene sutures were utilized to control the bleeding and hemostasis was obtained of the area. Using the short 8 Romanian sheath and a angiogram was performed which demonstrated the origin of the right common carotid and subclavian arteries. A stiff angled Glidewire was inserted through the sheath and placed into the descending aorta. Then a 8 x 39 VBX stent was placed at the origin of the right common carotid extending minimally into the innominate and was deployed to nominal size. A completion angiogram was performed which demonstrated patency of the common carotid and subclavian arteries on the right with no visible dissection and no flow-limiting stenosis of the new stent. The stent extended past the proximal end of the carotid endarterectomy patch. The 8 Romanian sheath was removed and the vessel loop securing the artery was removed and the internal was reclamped as well as the common carotid. The external carotid was controlled with a vessel loop. Backbleeding and forward bleeding was allowed to occur. The flow surface was irrigated with heparinized saline. The final few sutures to close the anastomosis were then placed and securely tied. Clamps were then removed off the external and common carotid arteries. The clamp was then removed the internal carotid artery. Good distal flow was seen. Adequate hemostasis was seen of the patch after multiple rounds of Gelfoam thrombin and Surgicel. The wound was inspected and adequate hem ostasis was obtained using Bovie electrocautery as well as hemostatic agents. The patient was also given a unit of blood and a pack of platelets at this time due to estimated blood loss as well as visible coagulopathy seen in the wound bed. The wound was irrigated with antibiotic solution. It was then closed with a running 3-0 Vicryl suture for the platysmal layer and a 4-0 subcuticular Vicryl suture for the skin edges. Prior to the skin edge being sutured local anesthetic was injected along the incision. The patient left the operating room in satisfactory condition and tolerated the procedure well. Dr. Cho was present and scrubbed for the entire procedure. I attest to the content of the Intraoperative Record and any orders documented therein. Any exceptions are noted below.
--- NOTE | 2024-04-12 15:57 | Anesthesiology Progress Note ---
Date of Service April 12, 2024 Anesthesia Post Procedure Vital Signs Vital Signs: Temp Pulse Pulse Resp BP BP Pulse Ox 04/12/24 15:45 36.2 C L 91 H 15 150/73 H 152/81 H 99 04/12/24 15:35 91 H 14 150/76 H 141/79 H 98 04/12/24 15:25 88 13 177/54 H 140/71 99 04/12/24 15:15 88 14 175/54 H 146/71 H 100 04/12/24 15:05 87 14 179/57 H 140/75 99 04/12/24 14:57 36.2 C L 88 16 179/59 H 135/79 100 04/12/24 08:00 36.5 C 78 20 148/117 H 147/79 H 98 O2 Del Method O2 Flow Rate 04/12/24 15:45 Nasal Cannula 2 04/12/24 15:35 Nasal Cannula 2 04/12/24 15:25 Nasal Cannula 2 04/12/24 15:15 Nasal Cannula 2 04/12/24 15:05 Nasal Cannula 2 04/12/24 14:57 Nasal Cannula 2 04/12/24 08:00 Room Air Transfer of Care Handoff Completed per policy Notes Mental Status: alert / awake / arousable Patient Amnestic to Procedure: Yes Nausea / Vomiting: adequately controlled Pain: adequately controlled Airway Patency, RR, SpO2: stable & adequate BP & HR: stable & adequate Hydration State: stable & adequate Anesthetic Complications: no major complications apparent
--- OUTSIDE RECORDS SUMMARY | 2024-04-12 16:04 | External Medical Summary | Continuity of Care Document ---
Author Name Unknown Organization [facility] Address [address] [place], [place] [id number] Care Team Providers Care Tooth Cutter Pinion Name Role Phone Verna Cosme Primary Care Physician [phone] [facility] [id number] Date(s): 03/03/24 - 03/03/24 [facility] [address], [address] [place] [address] [phone] Encounter Diagnosis Bilateral carotid artery stenosis(Discharge Diagnosis) - 03/03/24 Presence of internal carotid stent(Discharge Diagnosis) - 03/03/24 Discharge Disposition: Home or Self Care Attending Physician: MD Cho Eugene J Referring Physician: ROCHELLE Cosme Lindsay Marie Allergies, Adverse Reactions, Alerts No Known Allergies Assessment and Plan Extracted from: Title:Clinical Document Author:ROCHELLE Navarro Lynn Date:03/03/24 I OUTPATIENT NOTE Name: UNA LACKEY Patient Number: [id number] : 1950 Date of Service: 03/03/2024 Chief Complaint: _Follow-up for carotid stenosis HPI: _Mr. Lackey is an elderly male who presents to Dr. Cho vascular surgery clinic today for a 6-week follow-up visit regarding his history of left TCAR due to asymptomatic severe left ICA disease. Patient is overall he is doing well since his procedure. He states that his incision is healed well. He has had no new symptoms of cerebrovascular insufficiency including amaurosis, extremity weakness numbness or tingling, difficulty speaking or swallowing, facial droop, sudden onset confusion, other complaints. He did unfortunately recently suffer the loss of his , and is dealing with that. He is known to have significant right common carotid stenosis as well. His carotid ultrasound performed prior to today's appointment demonstrates a widely patent left carotid stent, as well as a severe stenosis of his right common carotid artery, as well as a second stenosis in his distal common/carotid bulb. Current Home Meds: (Last Updated 03/03 12:56) LORazepam (LORazepam 1 mg oral tablet) 1 mg PO tid PRN: as needed for anxiety acetaminophen 650 mg PO q6h PRN: fever/mild pain (1-3) albuterol-ipratropium (albuterol-ipratropium 2.5 mg-0.5 mg/3 mL inhalation solution) 3 mL inhaled qid PRN: as needed for shortness of breath or wheezing albuterol (albuterol CFC free 90 mcg/inh MDI) 2 puff inhaled qid PRN: as needed for wheezing aspirin (aspirin 81 mg oral delayed release tablet) 81 mg PO Daily atorvastatin (atorvastatin 40 mg oral tablet) 40 mg PO Daily baclofen (baclofen 10 mg oral tablet) 10 mg PO tid PRN: spasms carbamide peroxide otic (carbamide peroxide 6.5% otic solution) 10 drop right ear tid cholecalciferol (cholecalciferol 25 mcg (1000 intl units) oral capsule) 25 mcg PO Daily clopidogrel (Plavix 75 mg oral tablet) 75 mg PO Daily cyanocobalamin (cyanocobalamin 1000 mcg oral tablet) 2 tab PO Daily docusate (docusate sodium 100 mg oral capsule) 200 mg PO Daily PRN: as needed for constipation empagliflozin (empagliflozin 25 mg oral tablet) 25 mg PO qAM guaiFENesin (guaiFENesin 600 mg oral tablet, extended release) 600 mg PO bid insulin lispro subQ ac and hs lisinopril (lisinopril 10 mg oral tablet) 10 mg PO Daily loratadine (loratadine 10 mg oral capsule) 10 mg PO Daily magnesium oxide (magnesium oxide 420 mg oral tablet) 420 mg PO Daily metFORMIN (metFORMIN 500 mg oral tablet) 500 mg PO bid metoprolol (metoprolol tartrate 25 mg oral tablet) 25 mg PO bid mirtazapine (mirtazapine 30 mg oral tablet) 30 mg PO qhs omeprazole (omeprazole 20 mg oral delayed release capsule) 20 mg PO Daily polyethylene glycol 3350 (MiraLax) 17 g PO Daily pregabalin (pregabalin 75 mg oral capsule) 75 mg PO bid senna (senna 8.6 mg oral tablet) 8.6 mg PO bid PRN: as needed for constipation tamSULOsin (tamsulosin 0.4 mg oral capsule) 0.4 mg PO Daily traMADol (traMADol 50 mg oral tablet) 50 mg PO q6h PRN: pain - severe (7-10) Allergies and Sensitivities: NKA Past Medical History: Problems: Presence of internal carotid stent Bilateral carotid artery stenosis 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 No Orthostatic Data Available Height and Weight: Last Updated 12/30/23 12:58 Date BMI Wt(kg) Wt(lb) Method Ht(cm) (ft-in) Method 12/30/23 73 161 Standing Scale 10/14/23 26.79 73.2 161 Standing Scale 165.3 5-5 Standing 10/04/23 76.6 169 Standing Scale Heights and Weights are the last 3 documented. Physical Exam Constitutional: In general patient is a healthy-appearing well-nourished developed elderly male no distress. He is somewhat hard of hearing and does wear bilateral hearing aids. His carotid arteries do demonstrate bruits. His left supraclavicular incision is well-healed. His heart is regular, his lungs are decreased throughout but clear. His abdomen is soft nontender with marked bowel sounds in all 4 quadrants. Brachial and radial pulses are +2. Femoral pulses are +2. Lower extremities a pulses are +1. ASSESSMENT: _ PLAN: _ 1 ) _status post left TCAR Patient is overall doing well from his left TCAR procedure. His stent is widely patent by ultrasound. This to be reevaluated in 6 months with a new carotid ultrasound 2 ) _right carotid artery stenosis Patient does have a severe stenosis of his right proximal common carotid artery, as well as a stenosis in his more distal common carotid artery/carotid bulb. Patient's imaging was reviewed by Dr. Cho. Due to the severity of the stenosis and his risk of CVA, we recommended that the patient consider undergoing a right carotid endarterectomy, as well as simultaneous right common carotid artery stent placement. The procedure risks benefits and alternatives were discussed at length with the patient by myself at Dr. Cho's request. Patient expresses understanding and agreement to proceed. Advised call any other questions or concerns. He is agreeable to this plan. Thank you for letting us participate in the care of this patient. Immunizations Not Given Vaccine Date Status Refusal [...] Daily, Disp# 90 tab, Refills: 3, Pharmacy: [facility] Start Date: 08/13/23 Status: Ordered [...] Daily, Disp# 90 tab, Refills: 3, Pharmacy: [facility] Start Date: 08/13/23 Status: Ordered [...] Start Date: 10/04/23 Status: Ordered Mental Status 03/03/24 Barriers to Learning one year None evide nt Mandatory Health Literacy Documentation Yes Health Literacy Communication Barriers N ever Primary Language Slovak Problem List Condition Confirmation Course Effective Dates Status H ealth Status Informant Benign prostate hyperplasia Confirmed Active Bilateral carotid artery stenosis Confirmed Active Chronic obstructive pulmonary disease Confirmed Active Coronary artery disease involving [place] heart Confirmed Active Diabetes mellitus Confirmed Active Mixed dyslipidemia Confirmed Active Former smoker Confirmed Active Hypertension with heart disease Confirmed Active S/P CABG x 3 Confirmed Active Hypertension Confirmed Active Hyperlipidemia Confirmed Active Stenosis of left internal carotid artery Confirmed Active Presence of internal carotid stent Confirmed Active Diagnosis Diagnosis Type Effective Dates Health Status Cl inical Service Informant Bilateral carotid artery stenosis Discharge Diagnosis 03/03/24 Presence of internal carotid stent Discharge Diagnosis 03/03/24 Procedures Procedure Date Related Diagnosis Body Site Status left TCAR 01/05/24 Completed Tonsillectomy 1980 Completed Cholecystectomy Completed Colonoscopy-multiple and edoscopy Completed Vital Signs Most recent to oldest [Reference Range]: 1 2 Heart Rate 103 bpm (03/03/24 1:01 PM) Blood Pressure 100/52mmHg (03/03/24 1:02 PM) 124/54mmHg (03/03/24 1:01 PM) Cuff Pulse Pressure 48 mmHg (03/03/24 1:02 PM) 70 mmHg (03/03/24 1:01 PM) BP Location # 1 Right Arm (03/03/24 1:02 PM) Left Arm (03/03/24 1:01 PM) Social History Social History Type Response Smoking Status Never smoked cigaret davida Sex Male [facility] Outpt Note * ROCHELLE Navarro, Fabi: PERFORM Event Display: [facility] Outpt Note Authored Date: [id number] [facility] OUTPATIENT NOTE Name: UNA LACKEY Patient Number: [id number] : 1950 Date of Service: 03/03/2024 Chief Complaint: _Follow-up for carotid stenosis HPI: _Mr. Lackey is an elderly male who presents to Dr. Cho vascular surgery clinic today for a 6-week follow-up visit regarding his history of left TCAR due to asymptomatic severe left ICA disease.Patient is overall he is doing well since his procedure. He states that his incision is healed well. He has had no new symptoms of cerebrovascular insufficiency including amaurosis, extremity weakness numbness or tingling, difficulty speaking or swallowing, facial droop, sudden onset confusion, other complaints. He did unfortunately recently suffer the loss of his , and is dealing with that. He is known to have significant right common carotid stenosis as well. His carotid ultrasound performed prior to today's appointment demonstrates a widely patent left carotid stent, as well as a severe stenosis of his right common carotid artery, as well as a second stenosis in his distal common/carotid bulb. Current Home Meds: (Last Updated 03/03 12:56) LORazepam (LORazepam 1 mg oral tablet) 1 mg PO tid PRN: as needed for anxiety acetaminophen 650 mg PO q6h PRN: fever/mild pain (1-3) albuterol-ipratropium (albuterol-ipratropium 2.5 mg-0.5 mg/3 mL inhalation solution) 3 mL inhaled qid PRN: as needed for shortness of breath or wheezing albuterol (albuterol CFC free 90 mcg/inh MDI) 2 puff inhaled qid PRN: as needed for wheezing aspirin (aspirin 81 mg oral delayed release tablet) 81 mg PO Daily atorvastatin (atorvastatin 40 mg oral tablet) 40 mg PO Daily baclofen (baclofen 10 mg oral tablet) 10 mg PO tid PRN: spasms carbamide peroxide otic (carbamide peroxide 6.5% otic solution) 10 drop right ear tid cholecalciferol (cholecalciferol 25 mcg (1000 intl units) oral capsule) 25 mcg PO Daily clopidogrel (Plavix 75 mg oral tablet) 75 mg PO Daily cyanocobalamin (cyanocobalamin 1000 mcg oral tablet) 2 tab PO Daily docusate (docusate sodium 100 mg oral capsule) 200 mg PO Daily PRN: as needed for constipation empagliflozin (empagliflozin 25 mg oral tablet) 25 mg PO qAM guaiFENesin (guaiFENesin 600 mg oral tablet, extended release) 600 mg PO bid insulin lispro subQ ac and hs lisinopril (lisinopril 10 mg oral tablet) 10 mg PO Daily loratadine (loratadine 10 mg oral capsule) 10 mg PO Daily magnesium oxide (magnesium oxide 420 mg oral tablet) 420 mg PO Daily metFORMIN (metFORMIN 500 mg oral tablet) 500 mg PO bid metoprolol (metoprolol tartrate 25 mg oral tablet) 25 mg PO bid mirtazapine (mirtazapine 30 mg oral tablet) 30 mg PO qhs omeprazole (omeprazole 20 mg oral delayed release capsule) 20 mg PO Daily polyethylene glycol 3350 (MiraLax) 17 g PO Daily pregabalin (pregabalin 75 mg oral capsule) 75 mg PO bid senna (senna 8.6 mg oral tablet) 8.6 mg PO bid PRN: as needed for constipation tamSULOsin (tamsulosin 0.4 mg oral capsule) 0.4 mg PO Daily traMADol (traMADol 50 mg oral tablet) 50 mg PO q6h PRN: pain - severe (7-10) Allergies and Sensitivities: NKA Past Medical History: Problems: Presence of internal carotid stent Bilateral carotid artery stenosis 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 No Orthostatic Data Available Height and Weight: Last Updated 12/30/23 12:58 Date BMI Wt(kg) Wt(lb) Method Ht(cm) (ft-in) Method 12/30/23 73 161 Standing Scale 10/14/23 26.79 73.2 161 Standing Scale 165.3 5-5 Standing 10/04/23 76.6 169 Standing Scale Heights and Weights are the last 3 documented. Physical Exam Constitutional: In general patient is a healthy-appearing well-nourished developed elderly male no distress. He is somewhat hard of hearing and does wear bilateral hearing aids. His carotid arteries do demonstrate bruits. His left supraclavicular incision is well-healed. His heart is regular, his lungs are decreased throughout but clear. His abdomen is soft nontender with marked bowel sounds in all 4 quadrants. Brachial and radial pulses are +2. Femoral pulses are +2. Lower extremities a pulsesare +1. ASSESSMENT: _ PLAN: _ 1 ) _status post left TCAR Patient is overall doing well from his left TCAR procedure. His stent is widely patent by ultrasound. This to be reevaluated in 6 months with a new carotid ultrasound 2 ) _right carotid artery stenosis Patient does have a severe stenosis of his right proximal common carotid artery, as well as a stenosis in his more distal common carotid artery/carotid bulb. Patient's imaging was reviewed by Dr. Cho. Due to the severity of the stenosis and his risk of CVA, we recommended that the patient consider undergoing a right carotid endarterectomy, as well as simultaneous right common carotid artery stent placement. The procedure risks benefits and alternatives were discussed at length with the patient by myself at Dr. Cho's request. Patient expresses understanding and agreement to proceed. Advised call any other questions or concerns. He is agreeable to this plan. Thank you for letting us participate in the care of this patient. Electronic Signature on File CC: Verna Cosme PA-C [id number] [place] [id number] * Electronically Reviewed/Signed by: Fabi Navarro PA-C Author Signature Dt/Tm:03/03/2024 02:58 PM [facility] [place] [address] [address] Patient Care team information Care Team Personnel Name: Leandro Bustillos Amy E Position: Pharmacist Member Role: Pharmacy - Lifetime Address: Address: [address] [address] Name: ROCHELLE Cosme, Verna Lopez Position: Referring Member Role: Primary Care Provider Address: Address: [address] [place] [address] [place] Name: ROCHELLE Navarro Lynn Position: Physician Supervisor [employer] Exempt - [facility] Surg Member Role: Lifetime Relationship Address: Address: [address] [place] [id number] [place] Care Team Related Persons Name: ENZO LACKEY Name: AGATA LACKEY
--- OUTSIDE RECORDS SUMMARY | 2024-04-12 16:05 | External Medical Summary | Continuity of Care Document ---
Author Name Unknown Organization [address] Address [address] [place], [place] [id number] Care Team Providers Care Keying Machine Operator Name Role Phone CosmeVerna Primary Care Physician [phone] [id number] Date(s): 02/29/24 - 02/29/[address] [facility] [address], [address] [place] [address] [phone] Discharge Disposition: Home or Self Care Attending Physician: ROCHELLE Navarro Lynn Referring Physician: ROCHELLE Navarro Lynn Allergies, Adverse Reactions, Alerts No Known Allergies Immunizations Not Given Vaccine Date Status Refusal [...] 90 tab, Refills: 3, Pharmacy: [facility] Start Date: 08/13/23 Status: Ordered [...] 90 tab, Refills: 3, Pharmacy: [facility] Start Date: 08/13/23 Status: Ordered [...] severe (7-10) Start Date: 10/04/23 Status: Ordered Problem List Condition Confirmation Course Effective Dates Status H ealth Status Informant Benign prostate hyperplasia Confirmed Active Bilateral carotid artery stenosis Confirmed Active Chronic obstructive pulmonary disease Confirmed Active Coronary artery disease involving [place] heart Confirmed Active Diabetes mellitus Confirmed Active Mixed dyslipidemia Confirmed Active Former smoker Confirmed Active Hypertension with heart disease Confirmed Active S/P CABG x 3 Confirmed Active Hypertension Confirmed Active Hyperlipidemia Confirmed Active Stenosis of left internal carotid artery Confirmed Active Presence of internal carotid stent Confirmed Active Procedures Procedure Date Related Diagnosis Body Site Status left TCAR 01/05/24 Completed Tonsillectomy 1980 Completed Cholecystectomy Completed Colonoscopy-multiple and edoscopy Completed Results Radiology Reports * Exam Date Time Procedure Performing Provider Status 02/29/24 1:55 PM VL Carotid Duplex Bilateral Nikhil, Leon jenkins; Final Notes: (VL Carotid Duplex Bilateral) Reason For Exam: nayeli, tcar VL Carotid Duplex Bilateral [facility] FINAL REPORT Name: UNA LACKEY : 1950 Visit: [id number] Date: 29 Feb 2024 TYPE OF TEST: Cerebrovascular Duplex REASON FOR TEST Known carotid stenosis, Left carotid stent. INTERPRETATION/FINDINGS Duplex imaging performed of the bilateral extracranial arteries: 1. Significantly elevated velocities identified in the right proximal common carotid artery, suggesting a severe stenosis (PSV 500 cm/s, EDV 100 cm/s). 2. No hemodynamically significant stenosis identified in the right internal carotid artery; however, there is significant shadowing from calcified plaque that may mask higher velocities. 3. Patent left distal common carotid artery/carotid bulb and proximal internal carotid artery stent(s), with no evidence of restenosis. 4. 50-74% stenosis of the proximal right subclavian artery with oscillating flow in the right vertebral artery suggesting pre-steal phenomenon. 5. Normal antegrade flow in the left vertebral artery. 6. Normal flow in the left proximal subclavian artery. 7. >50% stenosis of the left external carotid artery. Plaque Morphology: 1. Complex, calcified plaque in the right bulb and internal carotid artery. Since the previous study performed 12/24/2023, the patient has undergone stenting of the left internal carotid artery. No previous in house studies of the right extracranial arterial system to compare to. IMPRESSION/COMMENTS I have personally reviewed the data relevant to the interpretation of this study. TECHNOLOGIST: Nikki Tejeda, BRANDEE, RVT PHYSICIAN: Peg Maynard M.D. Signed: 02/29/2024 02:19 PM Final Dictated by:MD Maynard Kristine L Dictated DT/TM:02/29/2024 2:19 Signed by:MD Maynard Kristine L Signed (Electronic Signature):02/29/2024 2:19 p Transcribed by:KAYCEE Social History Social History Type Response Smoking Status Former Smoker, quit > 1 yr Sex Male Patient Care team information Care Team Personnel Name: Leandro Bustillos Amy E Position: Pharmacist Member Role: Pharmacy - Lifetime Address: Address: [place] [address] [place] Name: ROCHELLE Cosme Lindsay Marie Position: Referring Member Role: Primary Care Provider Address: Address: [address] [place] [address] [place] Name: ROCHELLE Navarro Lynn Position: Physician 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
--- OUTSIDE RECORDS SUMMARY | 2024-04-12 16:05 | External Medical Summary | Continuity of Care Document ---
Author Name Unknown Organization [facility] [address] [facility] Address [address] [place], [place] [id number] Care Team Providers Care Supply Officer Name Role Phone CosmeVerna Primary Care Physician [phone] [id number] Date(s): 01/21/24 - 01/21/24 [facility] [address], [address] [place] [address] [phone] Encounter Diagnosis Bilateral carotid artery stenosis(Discharge Diagnosis) - 01/21/24 Presence of internal carotid stent(Discharge Diagnosis) - 01/21/24 Discharge Disposition: Home or Self Care Attending Physician: MD Cho Eugene J Allergies, Adverse Reactions, Alerts No Known Allergies Assessment and Plan Extracted from: Title:Clinical Document Author:ROCHELLE Navarro Lynn Date:01/21/24 [facility] OUTPATIENT NOTE Name: UNA LACKEY Patient Number: [id number] : 1950 Date of Service: 01/21/2024 Chief Complaint: _Follow-up after left TCAR HPI: _Mr. Lackey is an elderly male who presents to Dr. Cho vascular surgery clinic today for 2-week follow-up visit after undergoing uncomplicated left TCAR procedure at [facility]. Patient is overall he is doing well, but he is feeling slightly lightheaded if he stands up too quickly. Otherwise he states that he had been having some discomfort in the left neck incision, but that this is decreasing by the day. He denies any new symptoms of cerebrovascular insufficiency including amaurosis, extremity weakness numbness or tingling, difficulty speaking or swallowing, facial droop, sudden onset confusion, other complaints. 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 He also has a known ascending thoracic aortic aneurysm measuring 4.[address] of the chest. Patient denies any postprandial pain, and states that he eats 2-3 large plates of food per day. He does state that his overall weight in the past few months has been fluctuating, but he felt this was more due to him undergoing CABG, and recovering from this. Current Home Meds: (Last Updated 01/21 12:58) LORazepam (LORazepam 1 mg oral tablet) 1 [...] CABG x 3 Coronary artery disease involving absentee-shawnee heart Former smoker Benign prostate hyperplasia Chronic obstructive pulmonary disease Diabetes mellitus Hyperlipidemia Hypertension Stenosis of left internal carotid artery OBJECTIVE Vitals: Last Updated 12/30/23 12:58 Date Temp BP Location Pulse RR SpO2 Pain 12/30/23 94/50 Left Arm 85 98 12/24/23 138/54 Left Arm 97 98 0 11/03/23 0 Vital Signs are the last 3 documented. No Orthostatic Data Available Height and Weight: Last Updated 12/30/23 12:58 Date BMI Wt(kg) Wt(lb) Method Ht(cm) (ft-in) Method 12/30/23 73 161 Standing Scale 10/14/23 26.79 73.2 161 Standing Scale 165.3 5-5 Standing 10/04/23 76.6 169 Standing Scale Heights and Weights are the last 3 documented. Physical Exam Constitutional: In general patient is a healthy-appearing well-nourished well-developed elderly male no distress. He is alert and oriented with any focal deficits. His left supraclavicular incision is well-healed. There is a suture knot visible at the end of this incision which was removed easily today. There is no erythema ecchymosis tenderness or discharge. ASSESSMENT: _ PLAN: _ 1 ) _status post left TCAR Patient does have known bilateral carotid stenosis, and is now 2 weeks status post left TCAR. He is doing well postoperatively. Previous imaging had indicated a severe stenosis of his right common carotid artery. We recommended that the patient return to our office in another 4 to 6 weeks for reevaluation with a bilateral carotid ultrasound prior to that office visit, this will reevaluate his left ICA stent, as well as reevaluate his right carotid system. Will make further recommendations regarding whether or not he should proceed with any right carotid surgery at that visit. 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 The patient himself states that his weight overall has been fluctuating up and down over the past 3 to 4 months, and that he attributed this to undergoing major surgery and the stress surrounding that. He feels that his oral intake is actually increasing, as is his weight. We will continue to evaluate any change in the symptoms over his next visit here. The patient is agreeable to this plan. He will call with any other questions. Thank you for letting us participate in [...] Daily, Disp# 90 tab, Refills: 3, Pharmacy: [facility] Start Date: 08/13/23 Status: Ordered [...] Daily, Disp# 90 tab, Refills: 3, Pharmacy: [facility] Start Date: 08/13/23 Status: Ordered [...] disease Confirmed Active Coronary artery disease involving absentee-shawnee heart Confirmed Active Diabetes mellitus Confirmed Active [...] Informant Bilateral carotid artery stenosis Discharge Diagnosis 01/21/24 Presence of internal carotid stent Discharge Diagnosis 01/21/24 Procedures Procedure Date Related Diagnosis Body Site Status left TCAR 01/05/24 Completed Tonsillectomy 1980 Completed Cholecystectomy Completed Colonoscopy-multiple and edoscopy Completed Social History Social History Type Response Smoking Status Former Smoker, quit > 1 yr Sex Male [facility] Outpt Note * ROCHELLE Navarro Lynn: PERFORM Event Display: [facility] Outpt Note Authored Date: [id number] [facility] OUTPATIENT NOTE Name: UNA LACKEY Patient Number: [id number] : 1950 Date of Service: 01/21/2024 Chief Complaint: _Follow-up after left TCAR HPI: _Mr. Lackey is an elderly male who presents to Dr. Cho vascular surgery clinic today for 2-week follow-up visit after undergoing uncomplicated left TCAR procedure at [facility]. Patient is overall he is doing well, but he is feeling slightly lightheaded if he stands up too quickly. Otherwise he states that he had been having some discomfort in the left neck incision, but th at this is decreasing by the day. He denies any new symptoms of cerebrovascular insufficiency including amaurosis, extremity weakness numbness or tingling, difficulty speaking or swallowing, facial droop, sudden onset confusion, other complaints. 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 He also has a known ascending thoracic aortic aneurysm measuring 4.[address] of the chest. Patient denies any postprandial pain, and states that he eats 2-3 large plates of food per day. He does state that his overall weight in the past few months has been fluctuating, but he felt this was more due to him undergoing CABG, and recovering from this. Current Home Meds: (Last Updated 01/21 12:58) LORazepam (LORazepam 1 mg oral tablet) 1 [...] CABG x 3 Coronary artery disease involving absentee-shawnee heart Former smoker Benign prostate hyperplasia Chronic obstructive pulmonary disease Diabetes mellitus Hyperlipidemia Hypertension Stenosis of left internal carotid artery OBJECTIVE Vitals: Last Updated 12/30/23 12:58 Date Temp BP Location Pulse RR SpO2 Pain 12/30/23 94/50 Left Arm 85 98 12/24/23 138/54 Left Arm 97 98 0 11/03/23 0 Vital Signs are the last 3 documented. No Orthostatic Data Available Height and Weight: Last Updated 12/30/23 12:58 Date BMI Wt(kg) Wt(lb) Method Ht(cm) (ft-in) Method 12/30/23 73 161 Standing Scale 10/14/23 26.79 73.2 161 Standing Scale 165.3 5-5 Standing 10/04/23 76.6 169 Standing Scale Heights and Weights are the last 3 documented. Physical Exam Constitutional: In general patient is a healthy-appearing well-nourished well- developed elderly male no distress. He is alert and oriented with any focal deficits. His left supraclavicular incision is well-healed. There is a suture knot visible at the end of this incision which was removed easily today. There is no erythema ecchymosis tenderness or discharge. ASSESSMENT: _ PLAN: _ 1 ) _status post left TCAR Patient does have known bilateral carotid stenosis, and is now 2 weeks status post left TCAR. He isdoing well postoperatively. Previous imaging had indicated a severe stenosis of his right common carotid artery. We recommended that the patient return to our office in another 4 to 6 weeks for reevaluation with a bilateral carotid ultrasound prior to that office visit, this will reevaluate his left ICA stent, as well as reevaluate his right carotid system. Will make further recommendations regarding whether or not he should proceed with any right carotid surgery at that visit. 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 The patient himself states that his weight overall has been fluctuating up and down over the past 3 to 4 months, and that he attributed this to undergoing major surgery and the stress surrounding that. He feels that his oral intake is actually increasing, as is his weight. We will continue to evaluate any change in the symptoms over his next visit here. The patient is agreeable to this plan. He will call with any other questions. Thank you for letting us participate in the care of this patient. Electronic Signature on File CC: Verna Cosme PA-C [id number] [facility] [id number] * Electronically Reviewed/Signed by: Fabi Navarro PA-C Author Signature Dt/Tm:01/21/2024 02:10 PM [facility] [place] [address] [place] Patient Care team information Care Team Personnel Name: Leandro Bustillos Amy E Position: Pharmacist Member Role: Pharmacy - Lifetime Address: Address: [address] Name: ROCHELLE Cosme Lindsay Marie Position: Referring Member Role: Primary Care Provider Address: Address: [address] [place] [id number] [place] Name: ROCHELLE Navarro Lynn Position: Physician Cold Reduction Roller Exempt - Vasc Surg Member Role: Lifetime Relationship Address: Address: [address] [place] [id number] Care Team Related Persons Name: ENZO LACKEY Name: AGATA LACKEY
--- OUTSIDE RECORDS SUMMARY | 2024-04-12 16:05 | External Medical Summary | Continuity of Care Document ---
Author Name Unknown Organization [address] Address [address] [place], [place] [id number] Care Team Providers Care Victim Advocate Name Role Phone CosmeVerna Primary Care Physician [phone] [id number] Date(s): 02/11/24 - 02/11/[address], [address] [place] [address] [phone] Discharge Disposition: Home or Self Care Attending Physician: DO Espinoza Jason D Referring Physician: DO Espinoza Jason D Allergies, Adverse [...] Daily, Disp# 90 tab, Refills: 3, Pharmacy: [facility] Start Date: 08/13/23 Status: Ordered atorvastatin [...] Daily, Disp# 90 tab, Refills: 3, Pharmacy: [facility] Start Date: 08/13/23 Status: Ordered pregabalin [...] disease Confirmed Active Coronary artery disease involving agdaagux heart Confirmed Active Diabetes mellitus Confirmed Active [...] Exam Date Time Procedure Performing Provider Status 02/11/24 9:02 AM Echo TransTHORacic TTE Complete Nikki Tejeda; Final Notes: (Echo TransTHORacic TTE Complete) Reason For Exam: lv dzn, cad Echo TransTHORacic TTE Complete Report Signatures Finalized by Dr. Jose Espinoza MD on 02/11/2024 06:07 PM [place] Act 112: No-No further action needed Summary 1. Small, underfilled left ventricle with normal systolic function and no regional wall motion abnormalities. 2. Ejection fraction as calculated by Biplane Simpsons method is 60%. 3. Mild concentric left ventricular hypertrophy. 4. Grade I diastolic dysfunction of the left ventricle (impaired relaxation pattern) with indeterminate left atrial pressure. 5. Normal RV size with mild Hypokinesis. TAPSE 1.4 cm. 6. Normal biatrial size. 7. Dilated ascending aorta (4.1 cm). 8. Mild mitral valve regurgitation. 9. Mild tricuspid regurgitation. 10. Normal estimated pulmonary artery pressures, estimated PASP is 27 mmHg. 11. Compared to the previous study performed 10/02/2023, the LV systolic function has increased from 50-55% to 60%. Patient Info Name: UNA LACKEY Age: 73 years : 1950 Gender: Male Ht: 168 cm Wt: 74 kg BSA: 1.88 m2 HR: 96 bpm BP: 168 / 70 mmHg Heart Rhythm: Sinus Tachycardia Technical Quality: Fair Exam Date: 02/11/2024 8:17 AM Exam Location: [facility] Patient Status: Outpatient Staff Ordering Physician: Jose Espinoza Automatic Die Cutting Machine Operator: Nikki Tejeda, [facility], RVT Attending Physician: Jose Espinoza ([email or web address]) Study Info CPT 41571 - Indications K40759 - Coronary artery disease with unspecified angina pectoris Procedure(s) * A complete two-dimensional, color flow and Doppler transthoracic echocardiogram was performed. Exam Type: Cardiac Basic Left Ventricle Small, underfilled left ventricle with normal systolic function and no regional wall motion abnormalities. Ejection fraction as calculated by Biplane Simpsons method is 60%. Mild concentric left ventricular hypertrophy. Grade I diastolic dysfunction of the left ventricle (impaired relaxation pattern) with indeterminate left atrial pressure. Right Ventricle Normal RV size with mild Hypokinesis. TAPSE 1.4 cm. Left Atrium Normal left atrial size. Right Atrium Normal right atrial size. Atrial Septum Lipomatous hypertrophy of the atrial septum; appears intact by color Doppler. Aortic Valve Sclerotic, tricuspid aortic valve without stenosis or insufficiency. Pulmonic Valve Structurally normal pulmonic valve with trace insufficiency. Estimated pulmonary arterial mean pressure 17 mmHg. Mitral Valve Calcified mitral valve annulus without stenosis. Mild mitral valve regurgitation. Tricuspid Valve Structurally normal tricuspid valve. Mild tricuspid regurgitation. Normal estimated pulmonary artery pressures, estimated PASP is 27 mmHg. Pericardium/Pleural No pericardial effusion. Inferior Vena Cava Normal IVC size and inspiratory collapse. Estimated right atrial pressure is 3 mmHg. Aorta Normal aortic root and aortic arch. Dilated ascending aorta (4.1 cm). Left Ventricular Outflow Tract Name Value Normal LVOT 2D LVOT Diameter 2.0 cm LVOT Doppler LVOT Peak Velocity 1.08 m/s LVOT Peak Gradient 5 mmHg LVOT Mean Gradient 3 mmHg LVOT VTI 23.77 cm LVOT Stroke Volume 75.94 ml LVOT Stroke Volume Index 0.04 l/m2 LVOT Cardiac Output 7.29 l/min LVOT Cardiac Index 3.89 L/min/m2 Pulmonic Valve Name Value Normal PV 2D RVOT Diameter (2D) 2.2 cm 1.7-2.7 RVOT Doppler RVOT Peak Velocity 0.51 m/s PV Doppler PV Peak Velocity 0.79 m/s PV Regurgitation Doppler WA Peak Velocity 1.85 m/s Mitral Valve Name Value Normal MV Doppler MV Peak Velocity 1.52 m/s MV Peak Gradient 9 mmHg MV Mean Gradient 4 mmHg MV VTI 29.74 cm MV PHT 50 ms MV Area (Cont Eq VTI) 2.6 cm2 MV Area Index (Cont Eq VTI) 1.36 cm2/m2 MV Diastolic Function MV E Peak Velocity 1.06 m/s <=0.50 MV A Peak Velocity 1.39 m/s MV E/A 0.76 <=0.80 MV Decel Time 173 ms MV Annular TDI MV Septal s' Velocity 7.40 cm/s MV Septal e' Velocity 6.42 cm/s >=7.00 MV E/e' (Septal) 16.5 <=8.0 MV Lateral s' Velocity 7.94 cm/s MV Lateral e' Velocity 5.87 cm/s >=10.00 MV E/e' (Lateral) 18.03 <=8.00 MV e' Average 6.15 MV E/e' (Average) 17.26 <=14.00 Tricuspid Valve Name Value Normal TV Regurgitation Doppler TR Peak Velocity 2.43 m/s <=2.80 Estimated PAP/RSVP RA Pressure 3 mmHg <=5 PA Systolic Pressure 27 mmHg <40 PA Mean Pressure (WA Velocity) 17 mmHg TV Diastolic Function TV E Peak Velocity 0.46 m/s TV A Peak Velocity 0.29 m/s TV E/A 1.57 0.80-2.00 TV Decel Time 194 ms >=120 TV Annular TDI TV Lateral Smitha s' Velocity 11.7 cm/s 9.5-18.7 TV Lateral Smitha e' Velocity 6.8 cm/s <7.8 TV E/e' 6.70 2.00-6.00 Aorta Name Value Normal Ascending Aorta Sinus of Valsalva Diameter 3.5 cm 3.1-3.7 Sinus of Valsalva Index 1.88 cm/m2 1.50-1.90 Prox Asc Ao Diameter 4.1 cm 2.6-3.4 Prox Asc Ao Diameter Index 2.19 cm/m2 1.30-1.70 Thoracic Aorta Ao Arch Diameter 2.6 cm Venous Name Value Normal IVC/SVC IVC Diameter (Insp 2D) 0.6 cm IVC Diameter (Exp 2D) 1.2 cm <=2.1 IVC Diameter Percent Change (2D) 52 % >=50 Aortic Valve Name Value Normal AV Doppler AV Peak Velocity 1.08 m/s <2.00 AV Peak Gradient 5 mmHg AV Area (Cont Eq Dennis) 3.2 cm2 AV Area Index (Cont Eq Dennis) 1.71 cm2/m2 AV V1/V2 Ratio 1.00 AV Regurgitation 2D LVOT Area 3.2 cm2 Ventricles Name Value Normal LV Dimensions 2D/MM IVS Diastolic Thickness (2D) 1.3 cm 0.6-1.0 LVID Diastole (2D) 3.8 cm 3.6-5.6 LVIW Diastolic Thickness (2D) 1.2 cm 0.6-1.0 LVID Systole (2D) 3.1 cm 2.5-4.0 LVOT Diameter 2.0 cm LV Fractional Shortening/Ejection Fraction 2D/MM LV Fractional Shortening (2D) 17 % 25-43 LV Diastolic Volume (4C MOD) 53 ml LV Diastolic Volume (2C MOD) 51 ml LV Diastolic Volume (BP MOD) 52 ml 62-150 LV Diastolic Volume Index (BP MOD) 27.82 ml/m2 34.00-74.00 LV Systolic Volume (BP MOD) 22 ml 21-61 LV Systolic Volume Index (BP MOD) 11.73 ml/m2 11.00-31.00 LV EF (BP MOD) 58 % 57-68 LV SV (BP MOD) 30.19 ml RV Dimensions 2D/MM TAPSE 1.4 cm >=1.7 Atria Name Value Normal LA Dimensions LA Area (4C) 19.0 cm2 LA Length (4C) 6.2 cm LA Area (2C) 19.1 cm2 LA Length (2C) 6.2 cm LA Volume (4C A-L) 49.21 ml LA Volume (2C A-L) 49.53 ml LA Volume (BP A-L) 49 ml 18-58 LA Volume Index (BP A-L) 26.34 ml/m2 <=34.00 RA Dimensions RA Area (4C) 15.1 cm2 <=18.0 Final Signed by:DO Espinoza Jason D Signed (Electronic Signature):02/11/2024 8:17 a Social History Social History Type Response Smoking Status Former Smoker, quit > 1 yr Sex Male Patient Care team information Care Team Personnel Name: Leandro Bustillos Amy E Position: Pharmacist Member Role: Pharmacy - Lifetime Address: Address: [address] [address] [place] Name: ROCHELLE Cosme Lindsay Marie Position: Referring Member Role: Primary Care Provider Address: Address: [address] [place] [address] [place] Name: ROCHELLE Navarro Lynn Position: Physician Owner Oral Surgeon Exempt - Vasc Surg Member Role: Lifetime Relationship Address: Address: [address] [place] [address] Care Team Related Persons Name: ENZO LACKEY Name: AGATA LACKEY
[2024-04-12] MEDS ORDERED: LORazepam 1 MG TAB PO PRN (16:33)
[2024-04-12] MEDS ORDERED: STAT IV Infusion **Titration per Protocol STA (16:33)
[2024-04-12] MEDS ORDERED: ALBUTEROL HFA 8 GM INHALER INH PRN (16:33)
[2024-04-12] MEDS ORDERED: LORATADINE 10 MG TAB PO PRN (16:33)
[2024-04-12] MEDS ORDERED: PHARMACY GLYCEMIC MGMT CONSULT PRN (16:33)
[2024-04-12] MEDS ORDERED: CARBOXYMETHYLCELLULOSE SODIUM 1% OP SCH (16:33)
[2024-04-12] MEDS ORDERED: PHENYLEPHRINE/NSS 25 MG/250 ML BAG IV PRN (16:33)
[2024-04-12] MEDS ORDERED: ONDANSETRON 4 MG OD TAB PO PRN (17:00)
[2024-04-12] MEDS: LACTATED RINGER'S 1,000 ML IV SCH (17:23)
[2024-04-12] MEDS ORDERED: DEXTROSE 50% 50 ML SYRINGE IV PRN (17:30)
[2024-04-12] MEDS ORDERED: GLUCAGON FOR INJ 1 MG VIAL IM PRN (17:30)
[2024-04-12] MEDS ORDERED: GLUCOSE 10 TAB/TUBE PO PRN (17:30)
[2024-04-12] MEDS ORDERED: GLUCOSE 40% GEL 15 GM TUBE PO PRN (17:30)
[2024-04-12] MEDS ORDERED: CARBOHYDRATES FOR HYPOGLYCEMIA PO PRN (17:30)
[2024-04-12] MEDS: MoRPHine SULFATE 4 MG/ML 1 ML CARP\\VIAL IV PRN (17:42)
[2024-04-12] MEDS: INSULIN ASPART PER UNIT CHARGE SC SCH (18:25)
--- NOTE | 2024-04-12 18:55 | Critical Care Consultation ---
Date of Consultation April 12, 2024 Assessment & Plan (1) Internal carotid artery stent present: (2) CAD (coronary artery disease): (3) Hyperlipidemia: (4) Hypertension: (5) Diabetes mellitus, type 2: (6) Chronic obstructive pulmonary disease: Plan ICU CONSULT NOTE FORMAT: Reason Critically Ill: 73 YOM admitted to ICU following RIGHT CEA with stent placement- currently without vasoactive needs and to ICU for routine postoperative monitoring and following of hemodyanmics. Neuro - Carotid artery stenosis, CAM ICU: NEGATIVE - Patient with mild tongue deviation, voice is hoarse but without evidence of obstruction- continue to monitor- - incision is dry and intact- small hematoma noted- marked by surgical team - no further neurological deficits appreciate - Pain controlled per vascular - hemodyanmic goals and control per vascular surgery Cardiac - CAD, HTN, CABG x3 2012 - Chronic stable conditions at this time - follow hemodynamics - DAPT per Vascular surgery- ASA/Plavix in am of 04/13 - Continue FRANCIE as hemodynamics allow - Continue BB as hemodynamics allow Respiratory - COPD - No records avalilable for review - currently with SAMUEL - continue GI - No acute needs - advance diet as tolerated RENAL/LYTES - No acute needs - follow BMP follow electrolytes - BPH - Continue finasteride - remove alvarez when appropriate ENDO - DMII - carb consistent diet- appreciate pharmacy glycemic consultation already placed by primary service - Goal BG <180 mg/DL HEME - No acute needs - follow H/H- transfusions per primary service ID - No concern for acute infection at this time LINES/IV ACCESS - PIV, alvarez Continue use of these lines - a line discontinued earlier secondary to inaccuracy reportedly DVT PROPHYLAXIS - SCDs, Ambulation, ASA/PLavix DISPO: ICU until hemodynamics are proven stable I have personally spent 45 minutes of critical care time in the direct management of this patient. This is a life/limb threatening event. This includes time spent evaluating patient, direct bedside care, chart review, placing orders, interpretation of diagnostic studies, discussion with consultants, patient, and family members, as well as other required patient management activities. This time is exclusive of all separately billable procedures, and teaching time and separate from and in addition to any other critical care service time. Thank you for allowing us to participate in the care of this patient. Please refer to my attending physician's documentation for any further recommendations. History of Present Illness Reason for Consultation: s/p RIGHT CEA Requesting Physician: Marquis Attending Physician: Sacha Cho MD History of Present Illness 73 YOM admitted for RCA stensosis, treated by right CEA with stent performed by Dr. Cho of Vascular surgery. Patient is to ICU for postepoerative monitoring. Patient had his left side done in 01/23 via [facility] at this institution as well. he has medical history of, DMII, BPH, COPD, CAD, HLD, HTN, CABG x3. Patient is awake in the ICU with pain controlled. He is with hoarse voice and is reported that primary service is aware and required some further dissecting and manipulation during the case. He is phonating well and is moving air well as well as with effective cough. CODE: FULL Allergies Allergy/AdvReac Type Severity Reaction Status Date / Time No Known Allergies Allergy Verified 04/12/24 07:51 Home Medications Medication Instructions Recorded Confirmed Type omeprazole 20 mg capsule,delayed 20 mg PO QAM Acid Reflux 04/30/20 04/12/24 History release tamsulosin 0.4 mg capsule 0.4 mg PO QAM 04/30/20 04/12/24 History albuterol sulfate 90 mcg/actuation 1 inh inhalation QID PRN sob 05/29/20 04/12/24 History aerosol inhaler (Ventolin HFA) aspirin 81 mg tablet,delayed 81 mg PO QAM 08/13/23 04/12/24 History release clopidogrel 75 mg tablet (Plavix) 75 mg PO QAM 08/13/23 04/12/24 History cyanocobalamin (vitamin B-12) 1,000 mcg PO QPM 08/24/23 04/12/24 History 1,000 mcg tablet (Vitamin B-12) metformin 500 mg tablet,extended 500 mg PO BID 08/24/23 04/12/24 History release 24hr (osmotic) mirtazapine 30 mg tablet (Remeron) 30 mg PO HS 08/24/23 04/12/24 History cholecalciferol (vitamin D3) 25 25 mcg PO BID 12/28/23 04/12/24 History mcg (1,000 unit) capsule (Vitamin D3) empagliflozin 25 mg tablet 12.5 mg PO QAM 12/28/23 04/12/24 History (Jardiance) insulin glargine 100 unit/mL 30 unit subcut QAM 12/28/23 04/12/24 History subcutaneous solution (Lantus U-100 Insulin) loratadine 10 mg tablet (Claritin) 10 mg PO DAILY PRN allergy relief 12/28/23 04/12/24 History lorazepam 1 mg tablet 1 mg PO DAILY PRN Anxiety 12/28/23 04/12/24 History tramadol 50 mg tablet 50 mg PO Q8H PRN Pain 12/28/23 04/12/24 History atorvastatin 80 mg tablet 40 mg PO QAM 03/28/24 04/12/24 History carboxymethylcellulose sodium 1 % 1 drp ophthalmic (eye) UD 03/28/24 04/12/24 History eye liquid gel drops dexamethasone 0.1 % eye 1 drp ophthalmic (eye) BID 03/28/24 04/12/24 History drops,suspension lisinopril 10 mg tablet 10 mg PO QAM 03/28/24 04/12/24 History lovastatin 40 mg tablet 40 mg PO QAM 03/28/24 04/12/24 History metoprolol tartrate 50 mg tablet 25 mg PO BID 03/28/24 04/12/24 History ondansetron HCl 4 mg tablet 4 mg PO Q6H PRN Nausea 03/28/24 04/12/24 History polyethylene glycol 3350 17 gram 17 g PO HS 03/28/24 04/12/24 History oral powder packet (Miralax) Patient History Medical History Macular degeneration Hearing deficit Myocardial Infarction 08/2023 Carotid artery stenosis Neck CTA 08/05/23: Extensive atherosclerotic disease resulting in 90% right coronal and carotid artery stenosis and 80% left common carotid artery stenosis. Aortic aneurysm [facility] monitoring BPH (benign prostatic hyperplasia) Gastroparesis GERD (gastroesophageal reflux disease) Chronic obstructive pulmonary disease Surgical History H/O transcarotid artery revascularization ([facility]) left History of cardiac cath 08/2023 at [facility] prior to CABG History of coronary artery bypass graft 09/29/23> CABG x3 ([facility]) Hx of esophagogastroduodenoscopy Hx of colonoscopy Hx of tonsillectomy Hx of cholecystectomy Family History Mother Diabetes Sister Diabetes Other No family history of adverse response to anesthesia Social History Smoking Status: Former smoker Tobacco Type: Cigarettes Smoking End Date: 2008; Second Hand Exposure: No; Do You Dip or Chew Tobacco: No; Hx Alcohol Use: No Preferred Language: Frisian Communication Ability: Effective Double Needle Stitcher Required: No Beliefs That Will Affect Care: None Current Living Situation: Alone Feels Safe at Home: Yes Safety Concerns: Feels Safe At This Time Assistive Devices: Glasses and Hearing Aid - Bilateral Review of Systems Review of Systems: REVIEW OF SYSTEMS: Constitutional: No fever, sweats or chills Eyes: No diplopia, no worsening or blurred vision ENT: (+) hoarse voice, normal hearing, no trouble swallowing Respiratory: No cough, sputum, dyspnea at rest or on exertion Cardiovascular: No chest pain, tightness or palpitations Abdomen: No pain, nausea, vomiting, diarrhea or constipation Musculoskeletal: No joint pain, calf pain, swelling Neurologic: No weakness, numbness/tingling, or balance problems Psychiatric: No anxiety or depression Skin: No rash or itch Physical Exam Physical Exam: PHYSICAL EXAM: General: awake, alert, no apparent distress Head: Normocephalic, atraumatic ENT: PERRL, EOMI, no pharyngeal exudate, mucous membranes moist Neuro: AAO x 3, speech clear and appropriate, mild tongue deviation to the right, strength intact bilaterally 5/5, sensation intact and equal all extremities and dermatomes, no pronator drift, no facial droop, puffing of cheeks is appropriate bilaterally Chest: equal rise and fall of the chest, no accessory muscle use, no heaves or thrills, mild end expiratory wheeze, on nasal cannula, Cardiac: Regular rate and rhythm, telemetry reviewed- NSR, skin warm dry, cap refill <3 seconds, peripheral pulses +2 no JVD, no murmur, no edema, right CEA site intact with small hematoma, marked by surgery GI: NABS x 4 quadrants, soft, nontender to palpation, no rebound, guarding or tenderness : Spontaneously voiding, no pain, no CVA tenderness, Extremities: Normal inspection, no peripheral edema or erythema, calfs nontender to palpation Psych: Normal mood and affect Skin: no rash or erythema Results & Data Results & Data Vital Signs (Past 12 Hours) Vital Signs Temp Pulse Pulse Pulse Resp BP BP 04/12/24 18:15 105 H 14 04/12/24 18:00 104 H 14 04/12/24 18:00 134/91 04/12/24 17:45 103 H 14 04/12/24 17:30 100 H 15 04/12/24 17:18 101 H 19 04/12/24 17:18 141/82 H 04/12/24 17:15 101 H 21 04/12/24 17:00 117/69 04/12/24 17:00 94 H 14 04/12/24 17:00 36.6 C 04/12/24 16:05 92 H 14 145/64 H 04/12/24 15:55 91 H 12 168/70 H 04/12/24 15:45 36.2 C L 91 H 15 150/73 H 04/12/24 15:35 91 H 14 150/76 H 04/12/24 15:25 88 13 177/54 H 04/12/24 15:15 88 14 175/54 H 04/12/24 15:05 87 14 179/57 H 04/12/24 14:57 36.2 C L 88 16 179/59 H 04/12/24 08:00 36.5 C 78 20 148/117 H BP Pulse Ox O2 Del Method O2 Flow Rate 04/12/24 18:15 97 04/12/24 18:00 97 04/12/24 18:00 04/12/24 17:45 98 04/12/24 17:30 96 04/12/24 17:18 95 04/12/24 17:18 04/12/24 17:15 96 04/12/24 17:00 04/12/24 17:00 96 04/12/24 17:00 04/12/24 16:05 138/83 100 Nasal Cannula 2 04/12/24 15:55 160/84 H 99 Nasal Cannula 2 04/12/24 15:45 152/81 H 99 Nasal Cannula 2 04/12/24 15:35 141/79 H 98 Nasal Cannula 2 04/12/24 15:25 140/71 99 Nasal Cannula 2 04/12/24 15:15 146/71 H 100 Nasal Cannula 2 04/12/24 15:05 140/75 99 Nasal Cannula 2 04/12/24 14:57 135/79 100 Nasal Cannula 2 04/12/24 08:00 147/79 H 98 Room Air Laboratory Results Abnormal lab results 04/12/24 04/12/24 04/12/24 Range/Units 07:41 14:59 15:07 Hgb 12.6 L (14.0-18.0) g/dl Hct (42.0-52.0) % BUN/Creatinine Ratio 25.0 H (10-20) Glucose 143 H (70-99(Fasting)) mg/dl POC Glucose 142 H 164 H (70-99) mg/dl Crossmatch See Detail 04/12/24 04/12/24 Range/Units 18:01 Unknown Hgb 11.8 L (14.0-18.0) g/dl Hct 36.1 L (42.0-52.0) % BUN/Creatinine Ratio (10-20) Glucose (70-99(Fasting)) mg/dl POC Glucose 172 H (70-99) mg/dl Crossmatch Coding Level of Care Code 67200 CRITICAL CARE 1ST 30-74M Diagnoses Internal carotid artery stent present Z95.828 CAD (coronary artery disease) I25.10 Hyperlipidemia E78.5 Hypertension I10 Diabetes mellitus, type 2 E11.9 Chronic obstructive pulmonary disease J44.9
[2024-04-12] MEDS: CHOLECALCIFEROL 25 MCG (1000 UNITS) TAB PO SCH (20:24)
[2024-04-12] MEDS: METOPROLOL TARTRATE 25 MG TAB PO SCH (20:24)
[2024-04-12] MEDS: DEXAMETHASONE 0.1% OP SOLN 5 ML BTL OP SCH (20:24)
[2024-04-12] MEDS: CYANOCOBALAMIN (B-12) 500 MCG TABLET PO SCH (20:24)
[2024-04-12] MEDS: POLYETHYLENE (MIRALAX) 17 GM PACK PO SCH (20:25)
[2024-04-12] MEDS: MIRTAZAPINE TAB 15 MG TAB PO SCH (20:25)
[2024-04-12] MEDS: ceFAZolin 2000MG 2,000 MG/15 ML SYR IV SCH (20:26)
[2024-04-12] MEDS: COUGH DROP (SUGAR FREE) LOZ 24 LOZ/1 BOX BUCCAL STA (23:18)
[2024-04-13] MEDS: INSULIN ASPART PER UNIT CHARGE SC ONE (03:18)
[2024-04-13 04:57] LABS: Basophils # (auto) 0.02 K/uL (0.00-0.20); Basophils % (auto) 0.1 %; Eosinophils # (auto) 0.02 K/uL (0.00-0.50); Eosinophils % (auto) 0.1 %; Hematocrit (blood only) 33.8 % (42.0-52.0); Hemoglobin 10.9 g/dl (14.0-18.0); Immature Granulocytes # (auto) 0.08 K/uL (0.01-0.20); Immature Granulocytes % (auto) 0.6 %; Lymphocytes # (auto) 1.28 K/uL (1.20-3.40); Lymphocytes % (auto) 9.1 %; Mean Corpuscular Hemoglobin 26.5 pg (25.0-34.0); Mean Corpuscular Hgb Conc 32.2 g/dL (32.0-36.0); Mean Platelet Volume 9.4 fL (9.4-12.4); Monocytes % (auto) 7.1 %; Platelet Count 286 K/uL (130-400); RDW Coefficient of Variation 15.4 % (11.5-14.5); RDW Standard Deviation 45.1 fL (36.4-46.3); Red Blood Count 4.12 M/uL (4.70-6.10)
[2024-04-13 07:29] LABS: Estimated Average Glucose 143 mg/dl; Hemoglobin A1C 6.6 % (4.5-5.6)
[2024-04-13] MEDS: ATORVASTATIN 40 MG TAB PO SCH (08:12)
[2024-04-13] MEDS: ASPIRIN 81 MG ECTAB PO SCH (08:12)
[2024-04-13] MEDS: PANTOprazole 40 MG TAB PO SCH (08:12)
[2024-04-13] MEDS: CLOPIDOGREL BISULFATE 75 MG TAB PO SCH (08:12)
[2024-04-13] MEDS: LOVASTATIN 20 MG TAB PO SCH (08:12)
[2024-04-13] MEDS: lisinopril 10 MG TAB PO SCH (08:13)
[2024-04-13] MEDS: TAMSULOSIN HCL 0.4 MG CAP PO SCH (08:13)
--- NOTE | 2024-04-13 08:58 | Surgery Progress Note ---
Date of Service April 13, 2024 Assessment & Plan (1) Carotid stenosis, right: Plan: Patient post op day #1 from a right cea and common carotid stent. His hoarseness and tongue deviation markedly improved from immediately post op yesterday. He has no trachea deviation or focal deficits. Doing well Will transfer to floor. (2) Hoarseness: Plan: Has mild hoarseness which is improving. Will order speech therapy consult. Admission and Anticipated Discharge Date Admission Date: April 12, 2024 Subjective Patient feeling better. Able to swallow better. Did not choke on food this am. Denies any focal deficits Physical Exam Constitutional: WD/WN, vitals as above ENMT: Mouth: + tongue abnormality (slight deviation, markedly improved from yesterday) Neck: trachea midline Moderate right neck swelling Respiratory: normal respiratory effort; no respiratory distress Cardiovascular: Rate/Rhythm: regular rate and regular rhythm Skin: + incision (Dry and clean with moderate ecchymosis) Neurologic: CN's II-XI intact bilaterally and moves all extremities slight hoarseness Psychiatric: Orientation: alert and oriented x 3 Results & Data Vital Signs (Past 12 Hours) Vital Signs Temp Pulse Resp BP Pulse Ox O2 Del Method 04/13/24 06:00 85 16 123/68 95 Room Air 04/13/24 05:00 87 18 117/69 95 Room Air 04/13/24 04:00 36.8 C 85 17 127/75 95 Room Air 04/13/24 03:00 93 H 13 160/81 H 95 Room Air 04/13/24 02:00 83 14 113/65 96 Room Air 04/13/24 01:00 85 13 114/64 93 Room Air 04/13/24 00:00 36.8 C 83 13 112/66 95 Room Air 04/12/24 23:00 87 12 111/67 95 Room Air 04/12/24 22:00 98 H 14 106/69 95 Room Air 04/12/24 21:00 105 H 17 107/72 96 Room Air
[2024-04-13] MEDS ORDERED: LANTUS PER UNIT CHARGE SQ SCH (09:00)
[2024-04-13] MEDS ORDERED: EMPAGLIFLOZIN 25 MG TAB PO SCH (09:00)
--- NOTE | 2024-04-13 10:53 | Pharmacy Report ---
Pharmacy Glycemic Short Note 2 - Date of Service April 13, 2024 - Glycemic Short BSG Results (Last 24 hours): 04/12/24 04/12/24 04/12/24 14:59 18:01 20:46 POC Glucose 164 H 172 H 159 H 04/13/24 04/13/24 03:13 07:40 POC Glucose 138 H 151 H OUTPATIENT ANTIDIABETIC REGIMEN: * Metformin * Empagliflozin * Lantus 30 units daily * HbA1c 6.6% on 04/13/24 ASSESSMENT: * 73 yo M w well-controlled T2DM per HbA1c admitted 04/12 for Right Carotid Endarterectomy. Patient received dexamethasone on 04/12. * Continue Lantus home dose * Novolog initially weight-based severe stress estimate 2nd dexamethasone. Will loosen to moderate stress estimate today as dexamethasone effects wear off. * Metformin ordered by provider but initiation deferred to tomorrow 2nd IV contrast DDI. Once metformin starts, will eliminate CHO ratio. PLAN FOR INPATIENT GLYCEMIC CONTROL: * Hold outpatient oral diabetes medications for now. Metformin scheduled to start tomorrow PM. * Basal insulin * Lantus 30 units SQ daily * Bolus insulin * NovoLog per scale ACHS or Q6hrs while NPO * Goal Range: Low 110 mg/dL - High 140 mg/dL * Correction Factor: 30 mg/dL/unit * Nutritional / Prandial insulin per carb ratio of 1 unit per 10 grams CHO consumed. Eliminate CHO ratio tomorrow at dinner.
[2024-04-13] MEDS ORDERED: LANTUS PER UNIT CHARGE SC ONE (11:30)
[2024-04-13] MEDS: LANTUS PER UNIT CHARGE SC SCH (11:53)
--- NOTE | 2024-04-13 12:08 | Fluoroscopy Report ---
FL video swallow CLINICAL HISTORY: s/p R CEA, dysphagia TECHNIQUE: Video fluoroscopy of the pharyngeal region was performed as barium mixtures of varying con sistencies were administered to the patient by the speech pathologist. A formal esophagram was not pe rformed. Comparison: None available at the time of this dictation. FINDINGS: Total fluoroscopy time: 2.08 minutes. Radiation dose: 20 mGy. The patient swallowed the different barium consistencies without difficulty. Penetration and trace as piration was seen with thin liquids. Penetration was seen with nectar and aspiration was seen with pu dding. Esophageal retention is seen. IMPRESSION: Aspiration and penetration as above. Please see the speech pathology report for further details. ACT 112: Negative or not required by law. Electronically signed by: Shaheen Gilbert M.D. 04/13/2024 12:07 PM
[2024-04-13] MEDS: oxyCODONE/ACETAMINOPHEN 5mg/325mg TAB PO PRN (15:32)
[2024-04-14] MEDS: LANTUS PER UNIT CHARGE SC SCH (10:34)
--- NOTE | 2024-04-14 10:34 | Pharmacy Report ---
Pharmacy Glycemic Short Note 2 - Date of Service April 14, 2024 - Glycemic Short BSG Results (Last 24 hours): 04/13/24 04/13/24 04/13/24 11:06 16:34 21:12 POC Glucose 157 H 89 169 H 04/14/24 08:17 POC Glucose 96 OUTPATIENT ANTIDIABETIC REGIMEN: * Metformin * Empagliflozin * Lantus 30 units daily * HbA1c 6.6% on 04/13/24 ASSESSMENT: 04/14: * Patient received 44 units total insulin yesterday; 30 units basal and 14 units bolus. * BSGs yesterday were [id number] mg/dl. Fasting today is 96 mg/dl. * Although 30 units basal is patient's home dose, will decrease dose today since currently the regimen is more basal heavy. * Novolog parameters continued the same. Metformin to resume this evening. 04/13: * 73 yo M w well-controlled T2DM per HbA1c admitted 04/12 for Right Carotid Endarterectomy. Patient received dexamethasone on 04/12. * Continue Lantus home dose * Novolog initially weight-based severe stress estimate 2nd dexamethasone. Will loosen to moderate stress estimate today as dexamethasone effects wear off. * Metformin ordered by provider but initiation deferred to tomorrow 2nd IV contrast DDI. Once metformin starts, will eliminate CHO ratio. PLAN FOR INPATIENT GLYCEMIC CONTROL: * Hold outpatient oral diabetes medications for now. Metformin scheduled to start tomorrow PM. * Basal insulin * Lantus 20 units SQ daily * Bolus insulin * NovoLog per scale ACHS or Q6hrs while NPO * Goal Range: Low 110 mg/dL - High 140 mg/dL * Correction Factor: 30 mg/dL/unit * Nutritional / Prandial insulin per carb ratio of 1 unit per 10 grams CHO consumed. Eliminate CHO ratio tomorrow at dinner.
--- NOTE | 2024-04-14 14:59 | XRay Report ---
XR chest 1V portable CLINICAL HISTORY: increased fatigue, decreased responsiveness TECHNIQUE: Single frontal radiograph of the chest was obtained. Comparison: Comparison is made to chest radiograph 08/21/2023 FINDINGS: Median sternotomy wires are unchanged. Calcified aortic knob is seen. The lungs are clear. No evidenc e of pleural effusion or pneumothorax. IMPRESSION: No acute chest disease. ACT 112: Negative or not required by law. Electronically signed by: Shaheen Gilbert M.D. 04/14/2024 2:58 PM
--- NOTE | 2024-04-14 15:19 | Surgery Progress Note ---
Date of Service April 14, 2024 Assessment & Plan (1) Carotid stenosis, right: Plan: Patient post op day #2 from a right cea and common carotid stent. He is at baseline at this time. He is awake and alert Hospitalist service was consulted for change in mental status. (2) Hoarseness: Plan: Has mild hoarseness which is improving nicely. passed his swallowing test. Admission and Anticipated Discharge Date Admission Date: April 12, 2024 Subjective Received a call from nursing that the patient was lethargic and could not answer questions. On exam now he is able to talk without difficulty. He is aware of where he is. He claims he feels much better. Still complains of hoarseness but it he says it is improving. Physical Exam Constitutional: WD/WN, vitals as above ENMT: Mouth: + tongue abnormality (Almost totally midline) Neck: trachea midline Respiratory: normal respiratory effort; no respiratory distress Cardiovascular: Rate/Rhythm: regular rate and regular rhythm Extremities: normal capillary refill Skin: + incision (Dry and clean and unchanged) Neurologic: CN's II-XI intact bilaterally and moves all extremities Psychiatric: Orientation: alert and oriented x 3 Results & Data Vital Signs (Past 12 Hours) Vital Signs Temp Pulse Resp BP Pulse Ox O2 Del Method 04/14/24 14:51 36.9 C 96 H 16 146/73 H 97 Room Air 04/14/24 08:15 37.0 C 113 H 16 130/69 97 Room Air 04/14/24 08:00 Room Air
[2024-04-14 15:26] LABS: Basophils # (auto) 0.03 K/uL (0.00-0.20); Basophils % (auto) 0.3 %; Eosinophils # (auto) 0.04 K/uL (0.00-0.50); Eosinophils % (auto) 0.4 %; Hematocrit (blood only) 35.4 % (42.0-52.0); Hemoglobin 11.3 g/dl (14.0-18.0); Immature Granulocytes # (auto) 0.03 K/uL (0.01-0.20); Immature Granulocytes % (auto) 0.3 %; Lymphocytes # (auto) 2.34 K/uL (1.20-3.40); Lymphocytes % (auto) 23.4 %; Mean Corpuscular Hemoglobin 26.7 pg (25.0-34.0); Mean Corpuscular Hgb Conc 31.9 g/dL (32.0-36.0); Mean Corpuscular Volume 83.7 fL (80.0-100.0); Mean Platelet Volume 9.5 fL (9.4-12.4); Monocytes # (auto) 0.94 K/uL (0.11-0.59); Monocytes % (auto) 9.4 %; Neutrophils # (auto) 6.61 K/uL (1.40-6.50); Neutrophils % (auto) 66.2 %; Platelet Count 285 K/uL (130-400); RDW Coefficient of Variation 15.9 % (11.5-14.5); RDW Standard Deviation 47.8 fL (36.4-46.3); Red Blood Count 4.23 M/uL (4.70-6.10); White Blood Count 9.99 K/ul (4.8-10.8)
[2024-04-14 15:38] LABS: Albumin Globulin Ratio 1.3 (0.9-2); Albumin Level 3.4 gm/dl (3.4-5.0); BUN Creatinine Ratio 16.9 (10-20); Bilirubin,Total 0.7 mg/dl (0.2-1.0); Calcium 9.1 mg/dl (8.6-10.3); Creatinine Clr Calc Pharmacy 89.1 ml/min; Est GFR (African American) 107.1 ml/min; Est GFR (Non-African American) 92.4 ml/min; Globulin 2.7 gm/dl (2.5-4.0); Magnesium 1.5 mg/dl (1.7-2.4); Phosphorus 2.5 mg/dl (2.5-4.9); Potassium 3.9 mmol/L (3.5-5.1); Total Protein 6.1 gm/dl (6.0-8.3)
[2024-04-14] MEDS: metFORMIN HCL ER 500 MG TABCR PO SCH (17:09)
[2024-04-14 17:54] LABS: Appearance Urine Clear (Clear); Bilirubin Urine Negative (Negative); Blood Urine Negative (Negative); Color Urine Yellow; Glucose Urine UA Negative (Negative); Ketones Urine Negative (Negative); Leukocyte Esterase Urine Negative (Negative); Nitrite Urine Negative (Negative); Protein Urine Negative (Negative); Urobilinogen Urine Negative (Negative); pH Urine 8.5 (4.5-7.5)
[2024-04-14] MEDS: INSULIN ASPART PER UNIT CHARGE SC SCH (17:54)
[2024-04-14] MEDS: MAGNESIUM SULFATE / D5W 1 GM/100 ML BAG IV SCH (21:06)
--- NOTE | 2024-04-14 21:32 | Hospitalist Consultation ---
Date of Consultation April 14, 2024 Assessment & Plan (1) Status post carotid endarterectomy: VTE prophylaxis / Pain control / bowel regimen per primary vascular surgery team Will defer IV fluids to primary team but patient making good urine output subjectively therefore suspect can be discontinued now eating and drinking, no current sign of fluid overload Mild tongue deviation on exam ?hypoglossal nerve injury from surgery, monitor for improvement. Passed SLT evaluation. (2) Generalized weakness: with associated fatigue No significant lab abnormalities (mildly low Mg level will be replaced), CXR unremarkable, EKG unremarkable, already significant improvement from earlier in day per patient Suspect most likely to not getting a good night sleep the prior night, will monitor for now Consider CK level given change in statin intensity if persists but no myalgias - currently just weakness No focal neurology other than tongue deviation which is new since surgery (not today, therefore does not follow timeline of generalized weakness) and more likely hypoglossal nerve involvement than central process therefore no brain imaging ordered at this time (3) CAD (coronary artery disease): Continue ASA, clopidogrel, metoprolol, lisinopril, atorvastatin (4) Diabetes mellitus, type 2: HbA1C 6.6, no need to change outpatient regimen Pharmacy consulted for glycemic control by primary team (5) Hypertension: Well controlled on current regimen, continue Plan VTE Prophylaxis - per vascular surgery Diet - per vascular surgery, full liquid, T2DM Disposition - per vascular surgery Thank you for this consult, we will continue to see the patient History of Present Illness Reason for Consultation: fatigue, extreme tiredness Attending Physician: Sacha Cho MD History of Present Illness Tae Chu is a 73 year old male POD#2 right carotid endarterectomy. Reportedly doing well after his procedure initially although with some tongue deviation noted post procedure (he reports this is new). He passed his swallow evaluation and reports doing well on full liquid diet. He notes not sleeping much the previous night and was up for a lot of the night. No one sided weakness or ch beth in sensation, change in vision, speech or hearing. He feels generally weak bilaterally today with generalized fatigue. His daughter was concerned about him while sitting in the chair although she notes he already appears significantly better now after getting him back to bed. He has lorazepam prescribed but not taken any of this. He took one Percocet dose yesterday. No chest pain, shortness of breath, abdominal pain, constipation, fever, chills. Allergies Allergy/AdvReac Type Severity Reaction Status Date / Time No Known Allergies Allergy Verified 04/12/24 07:51 Home Medications Medication Instructions Recorded Confirmed Type omeprazole 20 mg capsule,delayed 20 mg PO QAM Acid Reflux 04/30/20 04/12/24 History release tamsulosin 0.4 mg capsule 0.4 mg PO QAM 04/30/20 04/12/24 History albuterol sulfate 90 mcg/actuation 1 inh inhalation QID PRN sob 05/29/20 04/12/24 History aerosol inhaler (Ventolin HFA) aspirin 81 mg tablet,delayed 81 mg PO QAM 08/13/23 04/12/24 History release clopidogrel 75 mg tablet (Plavix) 75 mg PO QAM 08/13/23 04/12/24 History cyanocobalamin (vitamin B-12) 1,000 mcg PO QPM 08/24/23 04/12/24 History 1,000 mcg tablet (Vitamin B-12) metformin 500 mg tablet,extended 500 mg PO BID 08/24/23 04/12/24 History release 24hr (osmotic) mirtazapine 30 mg tablet (Remeron) 30 mg PO HS 08/24/23 04/12/24 History cholecalciferol (vitamin D3) 25 25 mcg PO BID 12/28/23 04/12/24 History mcg (1,000 unit) capsule (Vitamin D3) empagliflozin 25 mg tablet 12.5 mg PO QAM 12/28/23 04/12/24 History (Jardiance) insulin glargine 100 unit/mL 30 unit subcut QAM 12/28/23 04/12/24 History subcutaneous solution (Lantus U-100 Insulin) loratadine 10 mg tablet (Claritin) 10 mg PO DAILY PRN allergy relief 12/28/23 04/12/24 History lorazepam 1 mg tablet 1 mg PO DAILY PRN Anxiety 12/28/23 04/12/24 History tramadol 50 mg tablet 50 mg PO Q8H PRN Pain 12/28/23 04/12/24 History atorvastatin 80 mg tablet 40 mg PO QAM 03/28/24 04/12/24 History carboxymethylcellulose sodium 1 % 1 drp ophthalmic (eye) UD 03/28/24 04/12/24 History eye liquid gel drops dexamethasone 0.1 % eye 1 drp ophthalmic (eye) BID 03/28/24 04/12/24 History drops,suspension lisinopril 10 mg tablet 10 mg PO QAM 03/28/24 04/12/24 History lovastatin 40 mg tablet 40 mg PO QAM 03/28/24 04/12/24 History metoprolol tartrate 50 mg tablet 25 mg PO BID 03/28/24 04/12/24 History ondansetron HCl 4 mg tablet 4 mg PO Q6H PRN Nausea 03/28/24 04/12/24 History polyethylene glycol 3350 17 gram 17 g PO HS 03/28/24 04/12/24 History oral powder packet (Miralax) Patient History Medical History (Updated 04/14/24 @ 21:28 by Antonio Jackson MD) Non-ST elevation (NSTEMI) myocardial infarction Macular degeneration Hearing deficit Myocardial Infarction 08/2023 Carotid artery stenosis Neck CTA 08/05/23: Extensive atherosclerotic disease resulting in 90% right coronal and carotid artery stenosis and 80% left common carotid artery stenosis. 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> CABG x3 ([facility] [place], [place]) Hx of esophagogastroduodenoscopy Hx of colonoscopy Hx of tonsillectomy Hx of cholecystectomy Family History Mother Diabetes Sister Diabetes Other No family history of adverse response to anesthesia Social History Smoking Status: Former smoker Tobacco Type: Cigarettes Smoking End Date: 2008; Second Hand Exposure: No; Do You Dip or Chew Tobacco: No; Hx Alcohol Use: No Preferred Language: Georgian Communication Ability: Effective Micropaleontologist Required: No Beliefs That Will Affect Care: None Current Living Situation: Alone Feels Safe at Home: Yes Safety Concerns: Feels Safe At This Time Assistive Devices: Cane, Scooter/Electric Scooter and Walker Review of Systems Review of Systems: All systems reviewed & are unremarkable except as noted in HPI & below Physical Exam Constitutional: WD/WN, vitals as above Eyes: PERRL, conjunctivae normal, anicteric sclerae ENMT: external ear and nose normal, oropharynx normal Respiratory: normal respiratory effort, lungs clear to auscultation Cardiovascular: RRR, no murmur, no edema Gastrointestinal (Abdomen): normal bowel sounds, soft, nontender, no hepatosplenomegaly Musculoskeletal: no cyanosis or clubbing, extremities motor strength 5/5 Skin: no rashes, warm and dry surgical dressing not removed but no cellulitis outside of this Neurologic: moves all extremities, + focal motor deficit (tongue deviation to right noted) and awake; not confused Speech / Cognition: normal speech Motor/Sensory: no tremor, no pronator drift and no sensory deficit Psychiatric: A+Ox3, euthymic affect Results & Data Results & Data Vital Signs (Past 12 Hours) Vital Signs Temp Pulse Pulse Resp BP Pulse Ox O2 Del Method 04/14/24 20:56 37.1 C 105 H 18 110/71 95 Room Air 04/14/24 16:19 37.2 C 90 16 103/68 97 Room Air 04/14/24 14:51 36.9 C 96 H 16 146/73 H 97 Room Air Laboratory Results Abnormal lab results 04/14/24 04/14/24 04/14/24 Range/Units 11:59 15:07 17:45 RBC 4.23 L (4.70-6.10) M/uL Hgb 11.3 L (14.0-18.0) g/dl Hct 35.4 L (42.0-52.0) % MCHC 31.9 L (32.0-36.0) g/dL RDW Std Deviation 47.8 H (36.4-46.3) fL RDW Coeff of Cm 15.9 H (11.5-14.5) % Neut # (Auto) 6.61 H (1.40-6.50) K/uL [place] # (Auto) 0.94 H (0.11-0.59) K/uL Carbon Dioxide 34 H (21-32) mmol/L Glucose 145 H (70-99(Fasting)) mg/dl POC Glucose 145 H (70-99) mg/dl Magnesium 1.5 L (1.7-2.4) mg/dl Urine pH 8.5 H (4.5-7.5) Diagnostic Findings XR chest 1V portable CLINICAL HISTORY: increased fatigue, decreased responsiveness TECHNIQUE: Single frontal radiograph of the chest was obtained. Comparison: Comparison is made to chest radiograph 08/21/2023 FINDINGS: Median sternotomy wires are unchanged. Calcified aortic knob is seen. The lungs are clear. No evidence of pleural effusion or pneumothorax. IMPRESSION: No acute chest disease. ECG Rate (beats per minute): 89 Rhythm: normal sinus Findings: + RBBB; no acute ischemic change Comparison ECG Date: from (August 23, 2023) Change: no significant change PG Care Time/CCT Total # of Minutes Spent Total Time Spent with Patient: Total time spent is greater than 50% in coordination of care (as documented) at patient's floor/unit and/or counseling patient: Coding Level of Care Code 29445 IN/OBS CONSULT LVL 4,60M Diagnoses Status post carotid endarterectomy Z98.890 Generalized weakness R53.1 CAD (coronary artery disease) I25.10 Diabetes mellitus, type 2 E11.9 Hypertension I10
--- NOTE | 2024-04-15 10:04 | Surgery Progress Note ---
Date of Service April 15, 2024 Assessment & Plan (1) Carotid stenosis, right: Plan: Patient doing much better. Ready to go home. (2) Hoarseness: Plan: Continues to improve. Admission and Anticipated Discharge Date Admission Date: April 12, 2024 Subjective Feeling better today. Says he wants to go home. voice is improving. Physical Exam Constitutional: WD/WN, vitals as above ENMT: Mouth: + tongue abnormality (Almost totally midline) Neck: trachea midline Respiratory: normal respiratory effort; no respiratory distress Cardiovascular: Rate/Rhythm: regular rate and regular rhythm Extremities: normal capillary refill Skin: + incision (Dry and clean and unchanged) Neurologic: CN's II-XI intact bilaterally and moves all extremities Psychiatric: Orientation: alert and oriented x 3 Results & Data Vital Signs (Past 12 Hours) Vital Signs Temp Pulse Resp BP Pulse Ox O2 Del Method 04/15/24 07:28 36.6 C 86 17 130/76 92 Room Air
--- NOTE | 2024-04-15 10:11 | Discharge Summary ---
Date of Service April 15, 2024 Admission HPI Per Admitting Provider Name: UNA CHU Patient Number: [id number] : 1950 Chief Complaint: Right internal and common carotid artery stenosis HPI: _Mr. Chu is an elderly male who was originally seen in July 2023 due to severe left ICA stenosis, and recommended to undergo intervention. Patient elected to undergo a left TCAR. During his preop workup, patient indicated that he had some occasional chest pains. He was referred for evaluation to a local cytotechnologist, and eventually underwent three-vessel CABG at [facility] [place]23. Earlier this year he underwent an uncomplicated left tcar. He denies any new complaints or concerns, specifically new amaurosis, extremity weakness numbness or tingling, difficulty speaking or swallowing, facial droop, sudden onset confusion. He remains very active and fully independent. He is now admitted for a right CEA and stenting of his right common carotid artery. Imaging: He underwent a left carotid artery ultrasound prior to today's appointment which continues to demonstrate 80 to 99% stenosis of the right ICA. It remains patent. Current Home Meds: (Last Updated 12/24 09:04) LORazepam (LORazepam 1 mg oral tablet) 1 mg PO tid PRN: as needed for anxiety acetaminophen 650 mg PO q6h PRN: fever/mild pain (1-3) albuterol-ipratropium (albuterol-ipratropium 2.5 mg-0.5 mg/3 mL inhalation solution) 3 mL inhaled qid PRN: as needed for shortness of breath or wheezing albuterol (albuterol CFC free 90 mcg/inh MDI) 2 puff inhaled qid PRN: as needed for wheezing aspirin (aspirin 81 mg oral delayed release tablet) 81 mg PO Daily atorvastatin (atorvastatin 40 mg oral tablet) 40 mg PO Daily baclofen (baclofen 10 mg oral tablet) 10 mg PO tid PRN: spasms carbamide peroxide otic (carbamide peroxide 6.5% otic solution) 10 drop right ear tid cholecalciferol (cholecalciferol 25 mcg (1000 intl units) oral capsule) 25 mcg PO Daily clopidogrel (Plavix 75 mg oral tablet) 75 mg PO Daily cyanocobalamin (cyanocobalamin 1000 mcg oral tablet) 2 tab PO Daily docusate (docusate sodium 100 mg oral capsule) 200 mg PO Daily PRN: as needed for constipation empagliflozin (empagliflozin 25 mg oral tablet) 25 mg PO qAM furosemide (Lasix 20 mg oral tablet) 20 mg PO Daily guaiFENesin (guaiFENesin 600 mg oral tablet, extended release) 600 mg PO bid insulin lispro subQ ac and hs lisinopril (lisinopril 10 mg oral tablet) 10 mg PO Daily loratadine (loratadine 10 mg oral capsule) 10 mg PO Daily magnesium oxide (magnesium oxide 420 mg oral tablet) 420 mg PO Daily metFORMIN (metFORMIN 500 mg oral tablet) 500 mg PO bid metoprolol (metoprolol tartrate 25 mg oral tablet) 25 mg PO bid mirtazapine (mirtazapine 30 mg oral tablet) 30 mg PO qhs omeprazole (omeprazole 20 mg oral delayed release capsule) 20 mg PO Daily polyethylene glycol 3350 (MiraLax) 17 g PO Daily potassium chloride 20 mEq PO Daily pregabalin (pregabalin 75 mg oral capsule) 75 mg PO bid senna (senna 8.6 mg oral tablet) 8.6 mg PO bid PRN: as needed for constipation tamSULOsin (tamsulosin 0.4 mg oral capsule) 0.4 mg PO Daily traMADol (traMADol 50 mg oral tablet) 50 mg PO q6h PRN: pain - severe (7-10) Allergies and Sensitivities: alogliptin(Rash) rOPINIRole(Rash) Past Medical History: Problems: Mixed dyslipidemia Hypertension with heart disease S/P CABG x 3 Coronary artery disease involving [place] heart Former smoker Benign prostate hyperplasia Chronic obstructive pulmonary disease Diabetes mellitus Hyperlipidemia Hypertension Stenosis of left internal carotid artery OBJECTIVE physical Exam Constitutional: In general patient is a healthy-appearing well-nourished well- developed elderly male no distress. Alert and oriented without any focal deficits. His left neck does demonstrate a high-pitched bruit. His heart is regular, his lungs are decreased throughout but clear. His abdomen is soft nontender with active bowel sounds in all 4 quadrants. Brachial and radial pulses are +2. Femoral pulses are +2. Lower extremity distal pulses are +1. He has brisk capillary fill no sign of distal ischemia. ASSESSMENT: _ PLAN: _ 1 ) _severe right common and ICA stenosis Patient is admitted for a stenting of his right common carotid artery and a right cea. I have discussed the risks options and benefits of the procedure with the patient. The patient understands the risks options and benefits and agrees to the procedure. Allergies Allergy/AdvReac Type Severity Reaction Status Date / Time No Known Allergies Allergy Verified 12/28/23 09:34 Home Medications Medication Instructions Recorded Confirmed Type omeprazole 20 mg capsule,delayed 20 mg PO DAILY PRN Acid Reflux 04/30/20 12/28/23 History release tamsulosin 0.4 mg capsule 0.4 mg PO QAM 04/30/20 12/28/23 History albuterol sulfate 90 mcg/actuation 1 inh inhalation QID PRN sob 05/29/20 0 12/28/23 History aerosol inhaler (Ventolin HFA) aspirin 81 mg tablet,delayed 81 mg PO QAM 08/13/23 12/28/23 History release clopidogrel 75 mg tablet 75 mg PO QAM 08/13/23 12/28/23 History cyanocobalamin (vitamin B-12) 1,000 mcg PO QPM 08/24/23 12/28/23 History 1,000 mcg tablet (Vitamin B-12) metformin 500 mg tablet,extended 500 mg PO BID 08/24/23 12/28/23 History release 24hr (osmotic) mirtazapine 30 mg tablet 30 mg PO HS 08/24/23 12/28/23 History atorvastatin 40 mg tablet 40 mg PO QPM 12/28/23 12/28/23 History cholecalciferol (vitamin D3) 25 25 mcg PO QAM 12/28/23 12/28/23 History mcg (1,000 unit) capsule (Vitamin D3) empagliflozin 25 mg tablet 12.5 mg PO QAM 12/28/23 12/28/23 History guaifenesin 600 mg tablet, 600 mg PO BID 12/28/23 12/28/23 History extended release 12 hr (Mucinex) insulin glargine 100 unit/mL 30 unit subcut QAM 12/28/23 12/28/23 History subcutaneous solution (Lantus U-100 Insulin) loratadine 10 mg tablet (Claritin) 10 mg PO QAM 12/28/23 12/28/23 History lorazepam 1 mg tablet 1 mg PO DAILY PRN Anxiety 12/28/23 12/28/23 History metoprolol tartrate 25 mg tablet 25 mg PO BID 12/28/23 12/28/23 History tramadol 50 mg tablet 50 mg PO Q8H PRN Pain 12/28/23 12/28/23 History Past Med/Surg History Medical History Aortic aneurysm [facility] monitoring Echo (08/16/23): Dilated aortic root (4.1 cm) and ascending aorta (4.3 cm)BPH (benign prostatic hyperplasia) CAD (coronary artery disease) CABG x3 (08/2023) Follows with Dr. Dunntid artery stenosis Neck CTA 08/05/23: Extensive atherosclerotic disease resulting in 90% right coronal and carotid artery stenosis and 80% left common carotid artery stenosis.Chronic obstructive pulmonary disease Diabetes mellitus, type 2 Gastroparesis GERD (gastroesophageal reflux disease) Hearing deficit Hyperlipidemia Hypertension Myocardial Infarction 08/2023 Surgical History [facility]/2023 [facility] prior to CABGHistory of coronary artery bypass graft 09/29/23> CABG x3 [place]Hx of cholecystectomy Hx of colonoscopy Hx of esophagogastroduodenoscopy Hx of tonsillectomy Family History Mother DiabetesSister DiabetesOther No family history of adverse response to anesthesia Social History Smoking Status: Former smoker Tobacco Type: Cigarettes Smoking End Date: 2004?; Second Hand Exposure: No; Do You Dip or Chew Tobacco: No; Hx Alcohol Use: No Preferred Language: Azeri Communication Ability: Effective Wire Stitcher Machine Required: No Beliefs That Will Affect Care: None Current Living Situation: Spouse Feels Safe at Home: Yes Safety Concerns: Feels Safe At This Time Assistive Devices: Glasses and Hearing Aid - Bilateral Admission Exam Per Admitting Provider Constitutional: In general patient is a healthy-appearing well-nourished well- developed elderly male no distress. Alert and oriented without any focal deficits. His left neck does demonstrate a high-pitched bruit. His heart is regular, his lungs are decreased throughout but clear. His abdomen is soft nontender with active bowel sounds in all 4 quadrants. Brachial and radial pulses are +2. Femoral pulses are +2. Lower extremity distal pulses are +1. He has brisk capillary fill no sign of distal ischemia. Principal Diagnosis Right common and internal carotid artery stenosis Discharge Exam Constitutional WD/WN, vitals as above ENMT Mouth: + tongue abnormality (Almost totally midline) Neck trachea midline Respiratory normal respiratory effort; no respiratory distress Cardiovascular Rate/Rhythm: regular rate and regular rhythm Extremities: normal capillary refill Skin + incision (Dry and clean and unchanged) Neurologic CN's II-XI intact bilaterally and moves all extremities Psychiatric Orientation: alert and oriented x 3 Discharge Data Allergies Allergy/AdvReac Type Severity Reaction Status Date / Time No Known Allergies Allergy Verified 04/12/24 07:51 Consultations 04/12/24 16:33 Consult Green Building Materials Designer Routine 04/14/24 14:00 Consult Hospitalist Routine Procedures Performed Operation Date: 04/12/24 08:50 Actual Procedures p Right Carotid Endarterectomy, Right Common Carotid Artery Stent(Right) - Sacha Cho MD Ordered Studies 04/12/24 07:28 EV angio carotid cerv RT Routine 04/13/24 08:29 FL video swallow Routine Hospital Course (1) Carotid stenosis, right: Patient doing much better. Ready to go home. (2) Hoarseness: Continues to improve. Total Time Total Time Spent Total Time Spent (In Minutes): 0 Discharge Plan Discharge Items Patient Disposition: Home - Self-Care Reason For Visit: RIGHT COMMON AND INTERNAL CAROTID ARTERY STENOSIS Discharge Diagnosis: Right common and internal carotid artery stenosis Activity: Per Instructions section Non-emergency contact: Surgeon Call non-emergency contact if: your temperature is above 101.5, your wound has increased redness, your wound has increased drainage and your wound pain has increased Follow-up/Referrals: Sacha Cho MD [Physician] - 05/03/24 2:30 pm Verna Vallejo PA-C [Primary Care Provider] - Diet: Carb Consistent or DM2 and Heart Healthy Addtl Attending Provider Instructions: SPECIAL CARE INSTRUCTIONS: Medications: * Continue to take Aspirin as directed. Incision Care: * You may shower, but do not rub incision. You may let the warm soapy water run over it. Be sure to dry the incision well after bathing. * Do not shave directly over the incision until it is healed. * DO NOT IMMERSE THE INCISION IN A TUB/POOL/etc. UNTIL HEALED. Restrictions: * Do not drive for at least one week or if you are still taking any narcotic pain medication. * Do not lift anything heavier than a gallon of milk for one week after going home. Possible Complications: * Numbness - It is normal to have some numbness around the incision. Numbness can extend beyond the incision to areas of the neck, ear and face. The numbness is due to bruising of nerves during the surgery and will gradually improve over a period of months. * Hoarseness/Difficulty Speaking and Swallowing - The bruising of nerves in the neck can also cause a hoarse voice, difficulty speaking or swallowing. This may improve over time, HOWEVER, if it continues for more than a few days please contact our office ([phone]). * Excessive Swelling - There will be some swelling immediately after surgery which usually resolves within one week. If you notice that the swelling is getting worse, notify your surgeon ([phone]). * Drainage/Bleeding - If there is any drainage or bleeding, it should be a very small amount (less than a teaspoon per day). If you have excessive bleeding or drainage from the incision, call your surgeon ([phone]) right away. ACTIVATION OF EMERGENCY MEDICAL SYSTEM: Call 911, immediately, if you experience any of the following: Warning Signs and Symptoms of Stroke: * Sudden numbness or weakness of the face, arm or leg, especially on one side of the body * Sudden confusion, trouble speaking or understanding * Sudden trouble seeing in one or both eyes * Sudden trouble walking, dizziness, loss of balance or coordination * Sudden severe headache with no cause Do not delay calling 911 if you experience any warning signs or symptoms of a stroke. Delay in seeking medical attention may affect what treatments can be given to you. Risk Factors for Stroke: You can reduce your chances of stroke by working with your medical provider to adopt a healthy lifestyle. Some specific ways to lower your chance of stroke are: * If you are a smoker, now is the time to stop smoking cigarettes * If you are diabetic, improve the control of your blood sugars * Avoid excessive amounts of alcohol * Control high blood pressure * Lose weight if you are overweight * Be sure to lead an active lifestyle * Eat a healthy diet low in salt, cholesterol and fat You should know about other risk factors for stroke that you are unable to control. These include: * Age 55 years or older * Male gender * Certain racial groups: , or / * Family History of Stroke, Mini stroke or Heart Attack * Sickle Cell Disease You will be receiving a call from the Vascular Surgery Nurse after you are discharged. FOLLOW UP VISIT: It is important for you to keep your follow up appointments with your medical provider. Keep any scheduled doctor appointments. Call [phone] to schedule a follow up appointment if one not already scheduled. Pending Studies at Discharge: No Stand-Alone Forms: [facility] Sm[facility] Cess[facility] Medications and DC Order Prescriptions: New oxycodone-acetaminophen 5-325 mg Tablet 1 - 2 tab PO Q4H PRN (Reason: pain) Qty: 10 0RF Continued omeprazole 20 mg capsule,delayed release(DR/EC) 20 mg PO QAM tamsulosin 0.4 mg capsule 0.4 mg PO QAM albuterol sulfate [Ventolin HFA] 90 mcg/actuation Hfa Aerosol Inhaler 1 inh INHALATION QID PRN (Reason: sob) clopidogrel [Plavix] 75 mg Tablet 75 mg PO QAM aspirin 81 mg Tablet,Delayed Release (Dr/Ec) 81 mg PO QAM cyanocobalamin (vitamin B-12) [Vitamin B-12] 1,000 mcg Tablet 1,000 mcg PO QPM mirtazapine [Remeron] 30 mg Tablet 30 mg PO HS metformin 500 mg Tablet Extended Release 24hr 500 mg PO BID insulin glargine [Lantus U-100 Insulin] 100 unit/mL Solution 30 unit SUBCUT QAM tramadol 50 mg Tablet 50 mg PO Q8H PRN (Reason: Pain) lorazepam 1 mg Tablet 1 mg PO DAILY PRN (Reason: Anxiety) loratadine [Claritin] 10 mg Tablet 10 mg PO DAILY PRN (Reason: allergy relief) cholecalciferol (vitamin D3) [Vitamin D3] 25 mcg (1,000 unit) Capsule 25 mcg PO BID Jardiance 25 mg Tablet 12.5 mg PO QAM atorvastatin 80 mg Tablet 40 mg PO QAM polyethylene glycol 3350 [Miralax] 17 gram Powder In Packet 17 g PO HS ondansetron HCl 4 mg Tablet 4 mg PO Q6H PRN (Reason: Nausea) lovastatin 40 mg Tablet 40 mg PO QAM lisinopril 10 mg Tablet 10 mg PO QAM metoprolol tartrate 50 mg Tablet 25 mg PO BID dexamethasone 0.1 % Drops,Suspension 1 drp OPHTHALMIC (EYE) BID carboxymethylcellulose sodium [Refresh] 1 % Drops, Liquid Gel 1 drp OPHTHALMIC (EYE) UD Discharge Orders: Discharge Order (Routine); Ordered 04/15/24 Ordered By: Sacha Levy/Other Patient Handouts: Managing Type 2 Diabetes Admission Data Admit Date/Time: 04/12/24 07:51 Attending Provider: Sacha Cho Admit Provider: Sacha Cho Primary Care Provider: Verna Vallejo Other Providers: Dragan Singletary; Valdemar Elmore; Calixto Mon; Kristian Harris; Vince Smith; Andressa Woodall; Javier Hubbard; Cheryl Kaminski; Josefa Bell; Sung Iverson; Randy Patel; Jessy Victoria; Antonio Jain
--- NOTE | 2024-04-15 10:22 | Electrocardiogram Report ---
Test Reason : Blood Pressure : / mmHG Vent. Rate : 089 BPM Atrial Rate : 089 BPM P-R Int : 154 ms QRS Dur : 144 ms QT Int : 416 ms P-R-T Axes : 057 018 006 degrees QTc Int : 506 ms Normal sinus rhythm Right bundle branch block Abnormal ECG When compared with ECG of 23-AUG-2023 23:55, No significant change was found Confirmed by Julio Loyd ([id number]) on 04/15/2024 10:22:03 AM Referred By: Sacha Cho Confirmed By:Bud Loyd
--- NOTE | 2024-04-15 12:04 | Hospitalist Progress Note ---
Date of Service April 15, 2024 Assessment & Plan (1) Status post carotid endarterectomy: Plan: Acute/stable - VTE prophylaxis / Pain control / bowel regimen per primary vascular surgery team - Will defer IV fluids to primary team but patient making good urine output subjectively therefore suspect can be discontinued now eating and drinking, no current sign of fluid overload - Mild tongue deviation on exam ?hypoglossal nerve injury from surgery, monitor for improvement. Passed SLT evaluation. Tolerating diet. (2) Generalized weakness: Plan: with associated fatigue - No significant lab abnormalities (mildly low Mg level will be replaced), CXR unremarkable, EKG unremarkable, already significant improvement from earlier in day per patient - Suspect most likely to not getting a good night sleep the prior night, will monitor for now - No focal neurology other than tongue deviation which is new since surgery (not today, therefore does not follow timeline of generalized weakness) and more likely hypoglossal nerve involvement than central process therefore no brain imaging ordered at this time (3) CAD (coronary artery disease): Plan: Chronic/stable - Continue ASA, clopidogrel, metoprolol, lisinopril, atorvastatin (4) Diabetes mellitus, type 2: Plan: HbA1C 6.6, no need to change outpatient regimen Pharmacy consulted for glycemic control by primary team (5) Hypertension: Plan: Chronic/stable - Well controlled on current regimen, continue Plan Thank you for allowing us to participate in the care of your patient. Will sign off at this time as he is medically stable for discharge. Above plan of care has been d/w Dr. Manley. Admission and Anticipated Discharge Date Admission Date: April 12, 2024 Easton Strong was seen on daily rounds this morning. He is resting comfortably in bed and offers no complaints or concerns. Scant amount of oozing from his incision. He endorses no pain. He is eating/drinking well, no issues with swallowing. Denies chest pain or dyspnea. He is voiding w/o issue and moving his bowels. Review of Systems 2 Review of Systems: All systems reviewed and are unremarkable except as noted in HPI and below. Denies fever, chills, fatigue, headache, nasal congestion, sore throat, cough, chest pain, shortness of breath, palpitations, orthopnea, PND, abdominal pain, n/v/d, constipation, dysuria, hematuria, frequency, back pain, joint pain or swelling, easy bruising or bleeding, skin lesions or rashes. Physical Exam 2 Physical Exam: GENERAL: 73 yo well-developed, well-nourished elderly M. No distress. LUNGS: Clear to auscultation bilaterally. No accessory muscle use. No W/R/R. CARDIOVASCULAR: Regular rate and rhythm. No M/G/R. No JVD. ABDOMEN: Soft, non-tender and non-distended. Bowel sounds normoactive x 4 quad. EXTREMITIES: No edema. Non-tender. Peripheral pulses +2/4. NEUROLOGIC: A&O x3. No focal neurological deficits. PSYCHIATRIC: Cooperative. Appropriate mood and affect. SKIN: right neck incision with good approximation. No active bleeding or drainage. No drains. Ecchymosis surrounding incision. Results & Data Results & Data Vital Signs (Past 12 Hours) Vital Signs Temp Pulse Resp BP Pulse Ox O2 Del Method 04/15/24 07:28 36.6 C 86 17 130/76 92 Room Air Laboratory Results 04/14/24 15:07 04/14/24 15:07 PG Care Time/CCT Total # of Minutes Spent Total Time Spent with Patient: Total time spent is greater than 50% in coordination of care (as documented) at patient's floor/unit and/or counseling patient: Coding Level of Care Code 05009 SUB INP/OBS CARE 2/35MIN Diagnoses Status post carotid endarterectomy Z98.890 Generalized weakness R53.1 Coronary artery disease involving [place] coronary artery of [place] heart without angina pectoris I25.10 Coronary Disease-Associated Artery/Lesion type: [place] artery [place] vs. transplanted heart: [place] heart Associated angina: without angina Type 2 diabetes mellitus with other circulatory complication, with long-term current use of insulin E11.59; Z79.4 Diabetes mellitus technician terminal and repeater insulin use: with penitentiary use Diabetes mellitus complication status: with circulatory complication Diabetes mellitus complication detail: with other circulatory complications Primary hypertension I10 Hypertension type: primary hypertension (3) CAD (coronary artery disease) Coronary Disease-Associated Artery/Lesion type: [place] artery [place] vs. transplanted heart: [place] heart Associated angina: without angina Qualified Code(s): I25.10 - Atherosclerotic heart disease of [place] coronary artery without angina pectoris (4) Diabetes mellitus, type 2 Diabetes mellitus penitentiary insulin use: with penitentiary use Diabetes mellitus complication status: with circulatory complication Diabetes mellitus complication detail: with other circulatory complications Qualified Code(s): E 11.59 - Type 2 diabetes mellitus with other circulatory complications; Z79.4 - detention (current) use of insulin (5) Hypertension Hypertension type: primary hypertension Qualified Code(s): I10 - Essential (primary) hypertension
== END 2024-04-15 11:48 | disposition home or self-care (01) | DRG 36 ==
LOC: ASU 07:15 → 1E 07:51 → 3W 04-13 13:08
DX: Z79.4 Long term (current) use of insulin; Z90.49 Acquired absence of other specified parts of digestive tract; I25.2 Old myocardial infarction; Z79.82 Long term (current) use of aspirin; Z87.891 Personal history of nicotine dependence; H91.90 Unspecified hearing loss, unspecified ear; I25.10 Atherosclerotic heart disease of native coronary artery without angina pectoris; E78.2 Mixed hyperlipidemia; Z79.84 Long term (current) use of oral hypoglycemic drugs; E11.9 Type 2 diabetes mellitus without complications; N40.0 Benign prostatic hyperplasia without lower urinary tract symptoms; Z79.899 Other long term (current) drug therapy; Z79.02 Long term (current) use of antithrombotics/antiplatelets; R49.0 Dysphonia; K21.9 Gastro-esophageal reflux disease without esophagitis; I10 Essential (primary) hypertension; I65.21 Occlusion and stenosis of right carotid artery; Z88.8 Allergy status to other drugs, medicaments and biological substances; J44.9 Chronic obstructive pulmonary disease, unspecified